=== PATIENT | female | born 1965 | race African-American/Black ===

== ENCOUNTER 2020-09-28 14:39 | Outpatient (REF) | payer MEDICARE, MEDICAID, SELFPAY ==
[2020-09-28 16:34] LABS: MANUAL DIFF FLAG NO
[2020-09-28 16:37] LABS: Basophils Percent Auto 0.5 % (0-2); Eosinophils Absolute Auto 0.2 X10*3/uL (0.0-0.4); Eosinophils Percent Auto 2.3 % (0-4); Hematocrit 39.9 % (37-47); Hemoglobin 12.5 g/dl (12.0-16.0); Imm Gran Abs Auto 0.02 X10*3/uL (0.00-0.03); Imm Gran Pct Auto 0.3 % (0.0-0.4); Lymphocytes Absolute Auto 2.7 X10*3/uL (1.2-4.9); Lymphocytes Percent Auto 34.2 % (20-40); Mean Corpuscular HGB Conc 31.3 g/dl (31.0-35.0); Mean Corpuscular Hemoglobin 26.9 pg (27.0-33.0); Mean Corpuscular Volume 85.8 fL (80-98); Monocytes Absolute Auto 0.9 X10*3/uL (0.1-1.2); Monocytes Percent Auto 10.8 % (2-11); Neutrophils Absolute Auto 4.1 X10*3/uL (2.0-8.3); Neutrophils Percent Auto 51.9 % (45-73); Platelet Count 479 X10*3/uL (160-400); Red Blood Count 4.65 X10*6/uL (4.20-5.50); Red Cell Distribution Width 14.6 % (11.0-16.0); White Blood Count 7.9 X10*3/uL (4.8-10.8)
[2020-09-28 16:56] LABS: Anion Gap 13 (12-20); Blood Urea Nitrogen 22 mg/dL (9-16); Carbon Dioxide 28 mmol/L (22-29); Chloride 103 mmol/L (96-108); Cholesterol 191 mg/dL; Estimated Glomerular Filt Rate > 60; Glucose Fasting 93 mg/dL (60-99); HDL Cholesterol 44 mg/dL; LDL Cholesterol Calculated 92 mg/dl; Potassium 4.9 mmol/l (3.3-5.1); Sodium 139 mmol/L (135-145); Triglycerides 275 mg/dL
[2020-09-28 17:05] LABS: Creatinine Urine 163.79 mg/dL; Microalbum/Creatinine Ratio Ur 8.5 ug/mg cr
[2020-09-28 17:16] LABS: TSH reflex Free T4 2.39 mIU/mL (0.32-4.0)
[2020-09-29 08:14] LABS: SARS COV2 IgG Negative (Negative)
[2020-09-29 09:27] LABS: Estimated Average Glucose 131 mg/dL; Hemoglobin A1c % 6.2 %
== END 2020-09-28 14:40 | disposition home or self-care (01) ==
LOC: HO.HMGCLDS 14:39
PROVIDERS: PCP Internal Medicine; Visit Provider Internal Medicine
DX: Z20.828 Contact with and (suspected) exposure to other viral communicable diseases (principal); E66.9 Obesity, unspecified; E13.9 Other specified diabetes mellitus without complications; E03.8 Other specified hypothyroidism; Z72.0 Tobacco use; I10 Essential (primary) hypertension
CPT/HCPCS: 36415; 80048; 80061; 82043; 83036; 84443; 85025; 86769

== ENCOUNTER 2021-01-27 14:25 | Outpatient (REF) | payer MEDICARE, MEDICAID, SELFPAY ==
--- NOTE | ~2021-01-27 | MM_ITS ---
EXAMINATION: MM SCREENING DIGITAL BREAST TOMOSYNTHESIS, BILATERAL CLINICAL INFORMATION: Screening. Asymptomatic. The lifetime risk of breast cancer based on the Tyrer-Cuzick Model is 11%. COMPARISON: Mammography: 09/29/2019, 09/27/2018, 09/26/2017 TECHNIQUE: Digital breast tomosynthesis is performed in both the craniocaudal and mediolateral oblique views along with computer-aided detection (CAD). Synthesized 2D images are generated from the tomosynthesis. FINDINGS: There are scattered areas of fibroglandular density (ACR BI-RADS breast composition Category b). Parenchymal pattern is similar to prior studies. There is a fine fibronodular pattern without interval dominant mass or developing density or architectural abnormality. Biopsy clip marker again noted left breast lower inner quadrant. The axilla and skin contours are unremarkable. There are no abnormal calcifications. No significant changes. MM/MM tomosynthesis screening BI IMPRESSION: No mammographic evidence of malignancy. ASSESSMENT: BI-RADS 2: Benign RECOMMENDATION: Routine annual mammography screening. This patient's information was entered into a reminder system with a target due date for their next mammogram.
== END 2021-01-27 14:26 | disposition home or self-care (01) ==
LOC: HO.MAMMO 14:25
PROVIDERS: PCP Internal Medicine; Visit Provider Internal Medicine
DX: Z12.31 Encounter for screening mammogram for malignant neoplasm of breast (principal)
CPT/HCPCS: 77063; 77067

== ENCOUNTER 2021-02-08 13:21 | Outpatient (REF) | payer MEDICARE, MEDICAID, SELFPAY ==
[2021-02-10 16:42] LABS: HPV mRNA E6/E7 rflx Not Detected (Not Detected)
== END 2021-02-08 13:22 | disposition home or self-care (01) ==
LOC: HO.LAB 13:21
PROVIDERS: PCP Internal Medicine; Visit Provider Obstetrics & Gynecology
DX: Z01.419 Encounter for gynecological examination (general) (routine) without abnormal findings (principal); Z11.51 Encounter for screening for human papillomavirus (HPV)
CPT/HCPCS: 87624; 88142

== ENCOUNTER 2021-04-20 14:12 | Outpatient (REF) | payer MEDICARE, MEDICAID, SELFPAY ==
[2021-04-20 16:35] LABS: Estimated Average Glucose 126 mg/dL
[2021-04-20 16:53] LABS: Alanine Aminotransferase 20 U/L (0-31); Albumin Level 4.5 g/dL (3.5-5.0); Alkaline Phosphatase 56 U/L (39-117); Anion Gap 16 (12-20); Aspartate Amino Transferase 20 U/L (5-31); Bilirubin Total 0.4 mg/dL (0.0-1.0); Blood Urea Nitrogen 23 mg/dL (9-16); Calcium 10.1 mg/dL (8.4-10.2); Carbon Dioxide 23 mmol/L (22-29); Chloride 106 mmol/L (96-108); Estimated Glomerular Filt Rate 47; Glucose Random 115 mg/dL (60-115); Potassium 4.7 mmol/L (3.3-5.1); Sodium 140 mmol/L (135-145); Total Protein 7.6 g/dL (6.5-8.0)
[2021-04-20 17:00] LABS: Creatinine Urine 162.85 mg/dL; Microalbum/Creatinine Ratio Ur 6.7 ug/mg cr
[2021-04-20 17:15] LABS: TSH reflex Free T4 1.97 uIU/mL (0.32-4.0)
== END 2021-04-20 14:13 | disposition home or self-care (01) ==
LOC: HO.HMGCLDS 14:12
PROVIDERS: PCP Internal Medicine; Visit Provider Internal Medicine
DX: Z00.01 Encounter for general adult medical examination with abnormal findings (principal); E03.8 Other specified hypothyroidism; E13.9 Other specified diabetes mellitus without complications; E66.9 Obesity, unspecified; I10 Essential (primary) hypertension
CPT/HCPCS: 36415; 80053; 82043; 83036; 84443

== ENCOUNTER 2021-08-23 12:18 | Outpatient (REF) | payer MEDICARE, MEDICAID, SELFPAY ==
[2021-08-23 14:11] LABS: MANUAL DIFF FLAG NO
[2021-08-23 14:20] LABS: Basophils Percent Auto 0.5 % (0-2); Eosinophils Absolute Auto 0.2 X10*3/uL (0.0-0.4); Eosinophils Percent Auto 2.4 % (0-4); Hematocrit 37.5 % (37.0-47.0); Hemoglobin 12.3 g/dl (12.0-16.0); Imm Gran Abs Auto 0.03 X10*3/uL (0.00-0.03); Imm Gran Pct Auto 0.4 % (0.0-0.4); Lymphocytes Absolute Auto 2.3 X10*3/uL (1.2-4.9); Lymphocytes Percent Auto 27.4 % (20-40); Mean Corpuscular HGB Conc 32.8 g/dl (31.0-35.0); Mean Corpuscular Hemoglobin 27.8 pg (27.0-33.0); Mean Corpuscular Volume 84.7 fL (80.0-98.0); Mean Platelet Volume 8.9 fL (9.4-12.3); Monocytes Absolute Auto 0.9 X10*3/uL (0.1-1.2); Monocytes Percent Auto 11.1 % (2-11); Neutrophils Absolute Auto 4.9 x10*3/uL (2.0-8.3); Neutrophils Percent Auto 58.2 % (45-73); Platelet Count 501 X10*3/uL (160-400); Red Blood Count 4.43 X10*6/uL (4.20-5.50); Red Cell Distribution Width 14.3 % (11.0-16.0); White Blood Count 8.5 X10*3/uL (4.8-10.8)
[2021-08-23 14:36] LABS: Estimated Average Glucose 128 mg/dL; Hemoglobin A1C 133.8206 umol/L; Hemoglobin A1c % 6.1 %
[2021-08-23 14:40] LABS: Alanine Aminotransferase 19 U/L (0-31); Albumin Level 4.4 g/dL (3.5-5.0); Alkaline Phosphatase 55 U/L (39-117); Anion Gap 13 (12-20); Aspartate Amino Transferase 17 U/L (5-31); Bilirubin Total 0.2 mg/dL (0.0-1.0); Blood Urea Nitrogen 26 mg/dL (9-16); Calcium 9.5 mg/dL (8.4-10.2); Carbon Dioxide 25 mmol/L (22-29); Chloride 100 mmol/L (96-108); Estimated Glomerular Filt Rate 57; Glucose Random 101 mg/dL (60-115); Potassium 4.3 mmol/L (3.3-5.1); Sodium 134 mmol/L (135-145); Total Protein 7.3 g/dL (6.5-8.0)
[2021-08-23 15:05] LABS: TSH reflex Free T4 3.59 uIU/mL (0.32-4.0)
[2021-08-25 02:02] LABS: LDL Cholesterol Direct 132 mg/dL (<100)
[2021-08-27 14:51] LABS: Vitamin D 25-OH, D2 <4 ng/mL; Vitamin D 25-OH, D3 37 ng/mL; Vitamin D 25-OH, Total 37 ng/mL (30-100)
== END 2021-08-23 12:19 | disposition home or self-care (01) ==
LOC: HO.HMGCLDS 12:18
PROVIDERS: PCP Internal Medicine; Visit Provider Internal Medicine
DX: E13.9 Other specified diabetes mellitus without complications (principal); E03.8 Other specified hypothyroidism; I10 Essential (primary) hypertension; F33.9 Major depressive disorder, recurrent, unspecified; F41.1 Generalized anxiety disorder; G47.33 Obstructive sleep apnea (adult) (pediatric); Z99.89 Dependence on other enabling machines and devices; E55.9 Vitamin D deficiency, unspecified
CPT/HCPCS: 36415; 80053; 82306; 83036; 83721; 84443; 85025

== ENCOUNTER → 2022-07-18 07:57 | Outpatient (BNVA) | payer MEDICARE, MEDICAID, SELFPAY | PROVIDERS: PCP Internal Medicine; Visit Provider Nurse Practitioner Family | DX: G47.33 Obstructive sleep apnea (adult) (pediatric) (principal); R40.0 Somnolence; I10 Essential (primary) hypertension; E66.01 Morbid (severe) obesity due to excess calories; Z68.37 Body mass index [BMI] 37.0-37.9, adult; Z99.89 Dependence on other enabling machines and devices | CPT/HCPCS: 99202 ==

== ENCOUNTER → 2022-08-08 13:53 | Outpatient (BNVA) | payer MEDICARE, MEDICAID, SELFPAY | PROVIDERS: PCP Internal Medicine; Visit Provider Physician Assistant Surgical | DX: Z11.0 Encounter for screening for intestinal infectious diseases (principal); E66.9 Obesity, unspecified; Z68.37 Body mass index [BMI] 37.0-37.9, adult | CPT/HCPCS: 99211; 99212 ==

== ENCOUNTER 2022-08-08 16:22 | Outpatient (REF) | payer MEDICARE, MEDICAID, SELFPAY ==
[2022-08-10 13:28] LABS: H Pylori Breath Test Negative (Negative)
== END 2022-08-08 16:23 | disposition home or self-care (01) ==
LOC: HO.LNP 16:22
PROVIDERS: Visit Provider Physician Assistant Surgical
DX: E66.9 Obesity, unspecified (principal)
CPT/HCPCS: 83013

== ENCOUNTER 2022-08-10 11:07 | Outpatient (REF) | payer MEDICARE, MEDICAID, SELFPAY ==
--- NOTE | ~2022-08-10 | XR_ITS ---
EXAMINATION: XR CHEST CLINICAL INFORMATION: Obesity. COMPARISON: 03/31/2019 TECHNIQUE: 2 views of the chest were obtained. FINDINGS: The lungs are well expanded. No focal consolidation. No pleural effusion. Cardiac silhouette is unchanged. XR/XR chest 2V IMPRESSION: No acute abnormality.
[2022-08-10 13:50] LABS: MANUAL DIFF FLAG NO
[2022-08-10 14:04] LABS: Basophils Percent Auto 0.5 % (0-2); Eosinophils Absolute Auto 0.1 X10*3/uL (0.0-0.4); Eosinophils Percent Auto 2.2 % (0-4); Hematocrit 40.3 % (37.0-47.0); Hemoglobin 13.3 g/dl (12.0-16.0); Imm Gran Abs Auto 0.01 X10*3/uL (0.00-0.03); Imm Gran Pct Auto 0.2 % (0.0-0.4); Lymphocytes Percent Auto 32.3 % (20-40); Mean Corpuscular Hemoglobin 27.9 pg (27.0-33.0); Mean Corpuscular Volume 84.7 fL (80.0-98.0); Mean Platelet Volume 9.1 fL (9.4-12.3); Monocytes Absolute Auto 0.6 X10*3/uL (0.1-1.2); Monocytes Percent Auto 9.9 % (2-11); Neutrophils Absolute Auto 3.4 x10*3/uL (2.0-8.3); Neutrophils Percent Auto 54.9 % (45-73); Platelet Count 438 X10*3/uL (160-400); Red Blood Count 4.76 X10*6/uL (4.20-5.50); Red Cell Distribution Width 14.4 % (11.0-16.0); White Blood Count 6.3 X10*3/uL (4.8-10.8)
[2022-08-10 14:10] LABS: Estimated Average Glucose 140 mg/dL; Hemoglobin A1c % 6.5 %
[2022-08-10 14:29] LABS: Alanine Aminotransferase 33 U/L (0-31); Albumin Level 4.6 g/dL (3.5-5.0); Alkaline Phosphatase 60 U/L (39-117); Anion Gap 20 (12-20); Aspartate Amino Transferase 29 U/L (5-31); Bilirubin Total 0.3 mg/dL (0.0-1.0); Blood Urea Nitrogen 21 mg/dL (9-16); Calcium 9.6 mg/dL (8.4-10.2); Carbon Dioxide 20 mmol/L (22-29); Chloride 102 mmol/L (96-108); Cholesterol 226 mg/dL; Estimated Glomerular Filt Rate 48; Glucose Fasting 164 mg/dL (60-99); HDL Cholesterol 43 mg/dL; Iron 73 mcg/dL (30-160); LDL Cholesterol Calculated 113 mg/dl; Percent Iron Saturation 17 % (15-50); Potassium 4.2 mmol/L (3.3-5.1); Sodium 138 mmol/L (135-145); Total Iron Binding Capacity 438 mcg/dL (228-428); Total Protein 7.8 g/dL (6.5-8.0); Triglycerides 350 mg/dL; Unsaturated Iron Binding 365 ug/dL
[2022-08-10 14:31] LABS: Cholesterol 226 mg/dL; HDL Cholesterol 42 mg/dL; LDL Cholesterol Calculated 115 mg/dl; Triglycerides 346 mg/dL
[2022-08-10 14:37] LABS: TSH reflex Free T4 3.51 uIU/mL (0.32-4.0)
[2022-08-10 14:39] LABS: Ferritin 138 ng/mL (10-250); TSH reflex Free T4 3.58 uIU/mL (0.32-4.0); Vitamin D 25-OH Total 40.4 ng/mL (>30)
[2022-08-10 14:45] LABS: Microalbum/Creatinine Ratio Ur 35.5 ug/mg cr
[2022-08-10 15:05] LABS: Folate > 20.0 ng/mL (> or = 4.0); Vitamin B12 363 pg/mL (200-900)
[2022-08-10 15:11] LABS: Insulin 77 uU/mL (2-29)
[2022-08-11 12:55] LABS: Calcium (PTHI) 9.6 mg/dL (8.6-10.4); PTHI 34 pg/mL (16-77)
[2022-08-15 16:43] LABS: Zinc 80 mcg/dL (60-130)
[2022-08-16 11:32] LABS: Vitamin A 85 mcg/dL (38-98)
[2022-08-16 15:51] LABS: Vitamin B1 15 nmol/L (8-30)
== END 2022-08-10 11:08 | disposition home or self-care (01) ==
LOC: HO.HMGCLDS 11:07
PROVIDERS: Absent Provider Physician Assistant Surgical; PCP Internal Medicine; Visit Provider Internal Medicine
DX: E03.8 Other specified hypothyroidism (principal); E13.9 Other specified diabetes mellitus without complications; F33.9 Major depressive disorder, recurrent, unspecified; F41.1 Generalized anxiety disorder; I10 Essential (primary) hypertension; J98.8 Other specified respiratory disorders; E66.9 Obesity, unspecified
CPT/HCPCS: 36415; 71046; 80053; 80061; 82043; 82306; 82607; 82728; 82746; 83036; 83525; 83540; 83970; 84425; 84443; 84590; 84630; 85025; 86140

== ENCOUNTER → 2022-08-15 14:39 | Outpatient (REF) | payer MEDICARE, MEDICAID, SELFPAY ==
--- NOTE | 2022-08-15 14:45 | ECG_ITS ---
Test Reason : E66.9 Blood Pressure : / mmHG Vent. Rate : 088 BPM Atrial Rate : 088 BPM P-R Int : 146 ms QRS Dur : 092 ms QT Int : 380 ms P-R-T Axes : 067 066 052 degrees QTc Int : 459 ms Normal sinus rhythm Normal ECG No previous ECGs available Referred By: Charanjit Hayes Electronically Signed By:MIGUEL FLOWERS MD
== END ==
LOC: HO.CARD 14:39
PROVIDERS: PCP Internal Medicine; Visit Provider Physician Assistant Surgical
DX: E66.9 Obesity, unspecified (principal)
CPT/HCPCS: 93005

== ENCOUNTER → 2022-08-24 15:50 | Outpatient (BNVA) | payer MEDICARE, MEDICAID, SELFPAY | PROVIDERS: PCP Internal Medicine; Referring Provider Physician Assistant Surgical; Visit Provider Dietitian, Registered | DX: E66.9 Obesity, unspecified (principal) | CPT/HCPCS: 97802 ==

== ENCOUNTER → 2022-08-29 14:02 | Outpatient (BNVA) | payer MEDICARE, MEDICAID, SELFPAY | PROVIDERS: PCP Internal Medicine; Visit Provider Physician Assistant Surgical | DX: E66.9 Obesity, unspecified (principal); Z68.36 Body mass index [BMI] 36.0-36.9, adult | CPT/HCPCS: 99212 ==

== ENCOUNTER → 2022-09-06 13:00 | Outpatient (BNVA) | payer OTHER, MEDICARE, MEDICAID, SELFPAY | PROVIDERS: PCP Internal Medicine; Referring Provider Physician Assistant Surgical; Visit Provider Counselor Mental Health | DX: F33.0 Major depressive disorder, recurrent, mild (principal); E66.01 Morbid (severe) obesity due to excess calories; Z68.35 Body mass index [BMI] 35.0-35.9, adult | CPT/HCPCS: 90791 ==

== ENCOUNTER 2022-09-20 08:07 | Outpatient (REF) | payer MEDICARE, MEDICAID, SELFPAY ==
--- NOTE | ~2022-09-20 | US_ITS ---
EXAMINATION: US COMPLETE ABDOMEN WITH LIVER ELASTOGRAPHY CLINICAL INFORMATION: Obesity. COMPARISON: None. TECHNIQUE: Real-time imaging of the abdominal viscera. Noninvasive ultrasound liver fibrosis assessment is performed using Randee ElastPQ point quantification shear wave elastography (2D-SWE) with a C5-2 MHz transducer. Multiple elastography samples are obtained. FINDINGS: PANCREAS: Normal. The visualized pancreatic head and body are normal in appearance. The remainder of the pancreas is obscured from visualization by the overlying bowel gas. ABDOMINAL AORTA: The proximal and middle aortic segments are normal in caliber. The distal segment is not seen. INFERIOR VENA CAVA: Visualized portions are normal. LIVER: The liver demonstrates normal size, contour and increased echogenicity. No focal lesion or intrahepatic biliary duct dilatation. The right lobe measures 16.0 cm in length. The left lobe measures 14.3 cm in length. Portal flow is hepatopedal. Shear wave liver elastography median stiffness is 1.17 m/s (reference: normal median stiffness is 1.3 m/s or less). IQR/median stiffness to assess sampling precision is 0.08 (reference: good quality data set is IQR/median stiffness of 0.15 or less). GALLBLADDER: The gallbladder is physiologically distended without evidence of stones, sludge, wall thickening or pericholecystic fluid. There are numerous non-mobile echogenic lesions along the inner gallbladder wall suggestive of polyps. COMMON BILE DUCT: Normal in caliber measuring 0.25 cm in diameter. RIGHT KIDNEY: Normal. No hydronephrosis. No renal calculi or focal parenchymal lesions. The kidney measures 12.2 cm in maximum dimension. LEFT KIDNEY: Normal. No hydronephrosis. No renal calculi or focal parenchymal lesions. The kidney measures 12.0 cm in maximum dimension. SPLEEN: Normal. The spleen measures 10.0 cm in maximum dimension. FREE FLUID: None. US/US abdomen comp w elastography IMPRESSION: 1. Numerous gallbladder polyps but no echogenic stones. 2. Mild hepatic steatosis without focal lesion. 3. Liver elastography: Median liver stiffness measures 1.17 m/s suggestive of high probability normal study. REFERENCE: Society of Radiologists in Ultrasound Liver Stiffness Thresholds (2020): LIVER STIFFNESS THRESHOLDS: *Liver Stiffness equal or less than 1.3 m/s: High probability of being normal. *Liver Stiffness less than 1.7 m/s: In the absence of other known clinical signs, rules out compensated advanced chronic liver disease. *Liver Stiffness 1.7-2.1 m/s: Suggestive of compensated advanced chronic liver disease but need further test for confirmation. *Liver Stiffness over 2.1 m/s: Rules in compensated advanced chronic liver disease. *Liver Stiffness over 2.4 m/s: Suggestive of clinically significant portal hypertension. QUALITY OF DATA SET: *IQR/Median value equal or less than 0.15 implies a quality data set. *IQR/Median value over 0.15 implies a poor quality data set. SIGNIFICANT CHANGE FROM PRIOR EXAM: Significant change if liver stiffness measurement is 10% or greater from prior exam. OTHER CONSIDERATIONS: The stage of liver fibrosis may be overestimated in the setting of acute hepatitis, liver inflammation, elevated liver function tests, hepatic vascular congestion, obstructive cholestasis, non-fasting state, and infiltrative diseases such as amyloidosis and lymphoma. In some patients with NAFLD, the liver stiffness thresholds for compensated advanced chronic liver disease may be lower. In causes other than viral hepatitis and NAFLD, liver stiffness thresholds are not well established.
--- NOTE | ~2022-09-20 | FL_ITS ---
EXAMINATION: XR FLUOROSCOPY UPPER GI WITH AIR CLINICAL INFORMATION: Obesity. COMPARISON: None. TECHNIQUE: Routine upper GI air-contrast study was performed in upright and lying positions. FINDINGS: Following oral administration of thick barium and effervescent granules, there is normal propagation of bolus from the oral cavity through the pharynx and esophagus and into the stomach without any evidence of obstruction, narrowing or stricture. Again visualized is mild indentation of posterior left upper sidewall from aberrant right subclavian artery. On placing patient supine and prone lying, the course, caliber and peristalsis of stomach, duodenal bulb and the CBD are normal. No gastroesophageal reflux or hiatal hernia seen. The mucosal pattern of the stomach and duodenum is normal. FLUOROSCOPY TIME: 1.8 minutes. DOSE AREA PRODUCT: 140.718 uGy-m2 (microgray-meter squared). FL/FL upper GI w air IMPRESSION: Unremarkable upper GI examination. Again noted is indentation of upper left and posterior esophageal wall likely from an aberrant right subclavian artery. Similar findings were seen on the previous UGI exam 05/07/2019.
== END 2022-09-20 08:08 | disposition home or self-care (01) ==
LOC: HO.US 08:07
PROVIDERS: Visit Provider Physician Assistant Surgical
DX: E66.9 Obesity, unspecified (principal)
CPT/HCPCS: 74246; 76705; 76981; Q3014

== ENCOUNTER → 2022-10-03 14:04 | Outpatient (BNVA) | payer OTHER, MEDICARE, MEDICAID, SELFPAY | PROVIDERS: Visit Provider Nurse Practitioner Family | DX: G47.33 Obstructive sleep apnea (adult) (pediatric) (principal) ==

== ENCOUNTER → 2022-10-19 13:56 | Outpatient (BNVA) | payer MEDICARE, MEDICAID, SELFPAY | PROVIDERS: Visit Provider Advanced Practice Midwife | DX: Z13.89 Encounter for screening for other disorder (principal) ==

== ENCOUNTER 2022-11-01 15:26 | Outpatient (REF) | payer MEDICARE, MEDICAID, SELFPAY ==
--- NOTE | ~2022-11-01 | MM_ITS ---
EXAMINATION: MM SCREENING DIGITAL BREAST TOMOSYNTHESIS, BILATERAL CLINICAL INFORMATION: Screening. Asymptomatic. The lifetime risk of breast cancer based on the Tyrer-Cuzick Model is 11.0%. COMPARISON: Mammography: 01/27/2021 and studies dating back to 12/19/2011 TECHNIQUE: Digital breast tomosynthesis is performed in both the craniocaudal and mediolateral oblique views along with computer-aided detection (CAD). Synthesized 2D images are generated from the tomosynthesis. FINDINGS: The breasts are heterogeneously dense, which may obscure small masses (ACR BI-RADS breast composition Category c). There is waxing and waning of circumscribed densities bilaterally consistent with cysts. No suspicious spiculated mass or region of architectural distortion is identified. No suspicious grouping of microcalcifications seen. MM/MM tomosynthesis screening BI IMPRESSION: No significant changes from prior exam. ASSESSMENT: BI-RADS 2: Benign RECOMMENDATION: Routine annual mammography screening. This patient's information was entered into a reminder system with a target due date for their next mammogram.
== END 2022-11-01 15:27 | disposition home or self-care (01) ==
LOC: HO.MAMMO 15:26
PROVIDERS: Visit Provider Internal Medicine
DX: Z12.31 Encounter for screening mammogram for malignant neoplasm of breast (principal)
CPT/HCPCS: 77063; 77067

== ENCOUNTER 2023-03-02 11:28 | Outpatient (REF) | payer MEDICARE, MEDICAID, SELFPAY ==
[2023-03-02 13:57] LABS: MANUAL DIFF FLAG NO
[2023-03-02 14:03] LABS: Basophils Percent Auto 0.6 % (0-2); Eosinophils Absolute Auto 0.1 X10*3/uL (0.0-0.4); Eosinophils Percent Auto 1.9 % (0-4); Hematocrit 37.6 % (37.0-47.0); Hemoglobin 12.3 g/dl (12.0-16.0); Imm Gran Abs Auto 0.01 X10*3/uL (0.00-0.03); Imm Gran Pct Auto 0.1 % (0.0-0.4); Lymphocytes Absolute Auto 2.1 X10*3/uL (1.2-4.9); Lymphocytes Percent Auto 30.9 % (20-40); Mean Corpuscular HGB Conc 32.7 g/dl (31.0-35.0); Mean Corpuscular Hemoglobin 27.6 pg (27.0-33.0); Mean Corpuscular Volume 84.5 fL (80.0-98.0); Mean Platelet Volume 9.2 fL (9.4-12.3); Monocytes Absolute Auto 0.6 X10*3/uL (0.1-1.2); Monocytes Percent Auto 8.8 % (2-11); Neutrophils Absolute Auto 3.9 x10*3/uL (2.0-8.3); Neutrophils Percent Auto 57.7 % (45-73); Platelet Count 458 X10*3/uL (160-400); Red Blood Count 4.45 X10*6/uL (4.20-5.50); Red Cell Distribution Width 14.6 % (11.0-16.0); White Blood Count 6.7 X10*3/uL (4.8-10.8)
[2023-03-02 14:13] LABS: Estimated Average Glucose 128 mg/dL; Hemoglobin A1c % 6.1 %
[2023-03-02 14:29] LABS: Alanine Aminotransferase 22 U/L (0-31); Albumin Level 4.3 g/dL (3.5-5.0); Alkaline Phosphatase 50 U/L (39-117); Anion Gap 14 (12-20); Aspartate Amino Transferase 20 U/L (5-31); Bilirubin Total 0.4 mg/dL (0.0-1.0); Blood Urea Nitrogen 19 mg/dL (9-16); Calcium 9.7 mg/dL (8.4-10.2); Carbon Dioxide 25 mmol/L (22-29); Chloride 103 mmol/L (96-108); Cholesterol 221 mg/dL; Estimated Glomerular Filt Rate 54; Glucose Fasting 125 mg/dL (60-99); Glucose Random 125 mg/dL (60-115); HDL Cholesterol 45 mg/dL; LDL Cholesterol Calculated 113 mg/dl; Potassium 4.6 mmol/L (3.3-5.1); Sodium 137 mmol/L (135-145); Total Protein 7.1 g/dL (6.5-8.0); Triglycerides 315 mg/dL
[2023-03-02 14:42] LABS: TSH reflex Free T4 3.55 uIU/mL (0.32-4.0)
[2023-03-03 22:03] LABS: LDL Cholesterol Direct 140 mg/dL (<100)
== END 2023-03-02 11:29 | disposition home or self-care (01) ==
LOC: HO.HMGCLDS 11:28
PROVIDERS: PCP Internal Medicine; Visit Provider Internal Medicine
DX: E03.8 Other specified hypothyroidism (principal); E13.9 Other specified diabetes mellitus without complications; E66.9 Obesity, unspecified; F33.9 Major depressive disorder, recurrent, unspecified; F41.1 Generalized anxiety disorder; I10 Essential (primary) hypertension; G47.33 Obstructive sleep apnea (adult) (pediatric); Z99.89 Dependence on other enabling machines and devices
CPT/HCPCS: 36415; 80053; 80061; 83036; 83721; 84443; 85025

== ENCOUNTER 2023-06-06 12:58 | Outpatient (AMB) | payer MEDICARE, MEDICAID, SELFPAY ==
--- NOTE | 2023-06-06 13:02 | A.OFFPC_ITS ---
Vital Signs 06/06/23 13:07 Height 5 ft 5 in Weight 227 lb BMI 37.8 BP 112/66 Blood Pressure Location Rt brachial Position Sitting Pulse 99 Pulse Source Pulse Oximeter Pulse Oximetry (%) 95 Oxygen Delivery Method Room Air Intake Visit Reasons: 3m follow up Intake Note: Pt is here today for 3 months follow up visit. Allergies amlodipine Allergy (Unknown, Verified 06/06/23 13:08) unknown contact metal agent Allergy (Unknown, Verified 06/06/23 13:08) Skin breakout lisinopril [LISINOPRIL] Allergy (Unknown, Verified 06/06/23 13:08) COUGH nickel [NICKEL] Allergy (Unknown, Verified 06/06/23 13:08) HIVES Medication List - Last Reconciled 06/06/23 by Tony Wilson MD bupropion HCl mg PO ezetimibe 10 mg PO DAILY 90 days fenofibrate 160 mg PO DAILY 90 days fluoxetine mg PO irbesartan-hydrochlorothiazide 300-12.5 mg 1 tab PO DAILY 90 days levothyroxine 75 mcg PO DAILY 90 days metformin 500 mg PO ONCE 90 days Tobacco use date assessed: 06/06/23 Dental Screening Dental Screen Date: 06/06/23 Did you have a dental visit in the last 12 months?: Yes Did you have a dental problem in the last 6 months where you did not have access to dental care?: No Was dental information given to patient?: Patient has dentist HPI 3m follow up HPI Details 57-year-old female came in today for her regular follow-up appointment Last set of lab was in February of this year reviewed again Patient is diabetic currently she is taking metformin 500 mg, hemoglobin A1c is stable it was 6.1% in February Hypothyroidism: Continue levothyroxine 75 mcg , TSH within normal limit Hypertension: Blood pressure is stable patient is on irbesartan hydrochlorothiazide 300-12.5 mg, tolerating medication. Lipid disorder: Continue fenofirate 160 mg Depression: Patient is is stable currently she is on Wellbutrin and fluoxetine BMI is elevated : patient is having difficulty losing weight. 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 Son No problems noted. Brother Colon cancer Other Adopted Social History Housing: House Alcohol intake: never Patient Tobacco Use Status: Former Tobacco user Quit Date: 2019 Tobacco use type: Cigarette Years Smoked: since age 11 e-Cigarette/Vaping Use: Never Used service: No Current occupational status: employed and disabled Cognitive needs: No Hearing needs: No Vision needs: Yes Female Reproductive History Menstrual Age of Menarche: 11 Questionnaire Thrive Questionnaire Date Thrive assessed: 06/30/22 [place]-7 AMB Questionnaire [place]-7 Date [place] - 7 assessed: 06/30/22 Source: Developed by Drs. Ezra Valdez, Miley Kulkarni, Jovanny Lainez and colleagues, with an educational keny from [facility]. Review of Systems Const Denies chills and Denies fever(s) ENT Denies epistaxis and Denies nasal discharge Card Denies chest pain Resp Denies chest congestion, Denies cough and Denies hemoptysis GI Denies diarrhea and Denies nausea Skin/Breast Denies rash Neuro Reports no additional complaints Psych Reports no additional complaints Endo Reports no additional complaints Physical exam (Primary Care) Vital Signs: Last Vital Signs Pulse 99 06/06/23 13:07 BP 112/66 06/06/23 13:07 Pulse Ox 95 06/06/23 13:07 Oxygen Delivery Method Room Air 06/06/23 13:07 BMI result Body Mass Index 37.8 Tobacco/Smoking Status: Tobacco use Status Tobacco use date assessed 11/01/22 06/06/23 13:03 Patient Tobacco Use Status Former Tobacco user 06/06/23 13:03 Tobacco use type Cigarette 06/06/23 13:03 e-Cigarette/Vaping Use Never Used 06/06/23 13:03 Thrive Assessment: Date of Thrive Assessment Date Thrive assessed 06/30/22 06/06/23 13:03 Const General: cooperative, comfortable and no acute distress Orientation/consciousness: patient oriented x3 HENMT Head: Yes normocephalic Eyes General: appearance normal, both eyes and all related structures Neck Neck: Yes supple Resp Effort & Inspection: normal respiratory effort, no cough and no stridor Cardio Rhythm: regular rhythm Heart sounds: S1 normal heart sound present and S2 normal heart sound present Skin General skin exam: turgor normal Neuro General: patient oriented x3, tone normal and moves all extremities Extrem Right lower extremity: no edema Left lower extremity: no edema Assessment and Plan Assessment & Plan (1) Hypertension, essential: Code(s): I10 - Essential (primary) hypertension (2) Other specified hypothyroidism: Code(s): E03.8 - Other specified hypothyroidism (3) Depression, major, recurrent: Code(s): F33.9 - Major depressive disorder, recurrent, unspecified Qualifiers: Active/Remission status: in partial remission Qualified Code(s): F33.41 - Major depressive disorder, recurrent, in partial remission (4) Anxiety, generalized: Code(s): F41.1 - Generalized anxiety disorder (5) Diabetes 1.5, managed as type 2: Code(s): E13.9 - Other specified diabetes mellitus without complications (6) Obstructive sleep apnea on CPAP: Code(s): G47.33 - Obstructive sleep apnea (adult) (pediatric); Z99.89 - Dependence on o ther enabling machines and devices (7) Obesity (BMI 30-39.9): Code(s): E66.9 - Obesity, unspecified Plan 57-year-old female came in today for her regular follow-up appointment Last set of lab was in February of this year reviewed again Patient is diabetic currently she is taking metformin 500 mg, hemoglobin A1c is stable it was 6.1% in February Hypothyroidism: Continue levothyroxine 75 mcg , TSH within normal limit Hypertension: Blood pressure is stable patient is on irbesartan hydrochlorothiazide 300-12.5 mg, tolerating medication. Lipid disorder: Continue fenofirate 160 mg Depression: Patient is is stable currently she is on Wellbutrin and fluoxetine BMI is elevated : patient is having difficulty losing weight. Sleep apnea: Patient has not had the sleep study yet she has appointment coming up next month Follow-up 3 months Orders: Orders Comprehensive [place]. Panel Fast Today E03.8 - Other specified hypothyroidism, E13.9 - Other specified diabetes mellitus without complications, E66.9 - Obesity, unspecified, F33.9 - Major depressive disorder, recurrent, unspecified, F41.1 - Generalized anxiety disorder, G47.33 - Obstructive sleep apnea (adult) (pediatric), I10 - Essential (primary) hypertension, Z99.89 - Dependence on other enabling machines and devices Hemoglobin A1c Today E03.8 - Other specified hypothyroidism, E13.9 - Other specified diabetes mellitus without complications, E66.9 - Obesity, unspecified, F33.9 - Major depressive disorder, recurrent, unspecified, F41.1 - Generalized anxiety disorder, G47.33 - Obstructive sleep apnea (adult) (pediatric), I10 - Essential (primary) hypertension, Z99.89 - Dependence on other enabling machines and devices Lipid Panel Today E03.8 - Other specified hypothyroidism, E13.9 - Other specified diabetes mellitus without complications, E66.9 - Obesity, unspecified, F33.9 - Major depressive disorder, recurrent, unspecified, F41.1 - Generalized anxiety disorder, G47.33 - Obstructive sleep apnea (adult) (pediatric), I10 - Essential (primary) hypertension, Z99.89 - Dependence on other enabling machines and devices TSH reflex Free T4 Today E03.8 - Other specified hypothyroidism, E13.9 - Other specified diabetes mellitus without complications, E66.9 - Obesity, unspecified, F33.9 - Major depressive disorder, recurrent, unspecified, F41.1 - Generalized anxiety disorder, G47.33 - Obstructive sleep apnea (adult) (pediatric), I10 - Essential (primary) hypertension, Z99.89 - Dependence on other enabling machines and devices Microalbumin, Random (w Creat) Today E03.8 - Other specified hypothyroidism, E13.9 - Other specified diabetes mellitus without complications, E66.9 - Obesity, unspecified, F33.9 - Major depressive disorder, recurrent, unspecified, F41.1 - Generalized anxiety disorder, G47.33 - Obstructive sleep apnea (adult) (pediatric), I10 - Essential (primary) hypertension, Z99.89 - Dependence on ot her enabling machines and devices Complete Blood Count Auto Diff Today E03.8 - Other specified hypothyroidism, E13.9 - Other specified diabetes mellitus without complications, E66.9 - Obesity, unspecified, F33.9 - Major depressive disorder, recurrent, unspecified, F41.1 - Generalized anxiety disorder, G47.33 - Obstructive sleep apnea (adult) (pediatric), I10 - Essential (primary) hypertension, Z99.89 - Dependence on other enabling machines and devices Coding Level of Care Code Est Pt Level 4 (02625) Diagnoses Hypertension, essential I10 Other specified hypothyroidism E03.8 Depression, major, recurrent F33.41 Active/Remission status: in partial remission Anxiety, generalized F41.1 Diabetes 1.5, managed as type 2 E13.9 Obstructive sleep apnea on CPAP G47.33; Z99.89 Obesity (BMI 30-39.9) E66.9
[2023-06-06 13:07] VITALS: BP 112/66; PULSE 99; O2SAT 95; BMI 37.8
== END 2023-06-06 14:11 | disposition home or self-care (01) ==
PROVIDERS: PCP Internal Medicine; Visit Provider Internal Medicine
DX: I10 Essential (primary) hypertension (principal); E03.8 Other specified hypothyroidism; F33.41 Major depressive disorder, recurrent, in partial remission; E13.9 Other specified diabetes mellitus without complications; F41.1 Generalized anxiety disorder; G47.33 Obstructive sleep apnea (adult) (pediatric); Z99.89 Dependence on other enabling machines and devices; E66.9 Obesity, unspecified
CPT/HCPCS: 99214

== ENCOUNTER 2023-06-26 14:02 | Outpatient (AMB) | payer MEDICARE, MEDICAID, SELFPAY ==
--- NOTE | 2023-06-26 14:05 | MHC.OFFVIS ---
Intake Vital Signs 06/26/23 14:07 Weight 231 lb Intake Visit Reasons: 2 mnts f/u for DYLAN - Confirmed Intake Note: Patient presents for 2 month follow up for DYLAN. patient states Somehow I've fallen through the cracks in our system, I've been bounce around and rescheduled twice., I don't know whats going on this is been going on for 6 months. Allergies amlodipine Allergy (Unknown, Verified 07/10/23 15:27) unknown contact metal agent Allergy (Unknown, Verified 07/10/23 15:27) Skin breakout lisinopril [LISINOPRIL] Allergy (Unknown, Verified 07/10/23 15:27) COUGH nickel [NICKEL] Allergy (Unknown, Verified 07/10/23 15:27) HIVES HPI HPI Comments History of Present Illness Details 57 y/o female patient presents for follow up of sleep study. The home sleep study result was significant for moderate degree of obstructive sleep apnea, the AHI 33/hr and mild degree of central sleep apnea YEE 7.3/hr with oxygen sarmad was 76%. Pt reports consistent symptoms, snoring, non refreshing sleep and daytime sleepiness. Pt states that she tries to practice good sleep hygiene, having routine sleep schedule and limit electronic use before bedtime. [facility] Medical History Obesity Obstructive sleep apnea on CPAP Diabetes 1.5, managed as type 2 Anxiety, generalized Depression, major, recurrent Other specified hypothyroidism Hypertension, essential Surgical History History of ear surgery History of colonoscopy Family History Son No problems noted. Son No problems noted. Brother Colon cancer Other Adopted Social History Housing: House Alcohol intake: never Patient Tobacco Use Status: Former Tobacco user Quit Date: 2019 Tobacco use type: Cigarette Years Smoked: since age 11 e-Cigarette/Vaping Use: Never Used service: No Current occupational status: employed and disabled Cognitive needs: No Hearing needs: No Vision needs: Yes Female Reproductive History Menstrual Age of Menarche: 11 Review of Systems Const All systems reviewed & are unremarkable except as noted in HPI and below ENT Reports Normal hearing present Neuro Reports Normal hearing present Physical Exam Const General: cooperative Nutritional Appearance: obese Orientation/consciousness: patient oriented x3 Limitations: no limitations Resp Effort & Inspection: normal respiratory effort and able to speak in complete sentences Neuro General: patient oriented x3, gait normal, moves all extremities and no focal motor deficits Cranial nerves: Yes Normal facial strength present, Yes Midline tongue present, Yes Symmetric palate elevation present, Yes Normal hearing present, Yes Ability to bilaterally rotate head present and Yes Ability to bilaterally elevate shoulders present Cognition (Neuro): normal cognition Gait exam (Neuro): Normal gait present Psych Appearance: grossly normal Mental Status: mental status grossly normal Speech and movement: Normal speech and movement present Attitude: cooperative Assessment & Plan Assessment & Plan (1) Daytime sleepiness: Code(s): R40.0 - Somnolence (2) Sleep apnea in adult: Comment: Moderate degree of obstructive sleep apnea and mild degree of central sleep apnea. Code(s): G47.30 - Sleep apnea, unspecified Plan Advised patient to start APAP [id number] to treat her sleep apnea. Stressed compliance, use CPAP nightly and more than 4 hrs. Wt reduction advised. Increase daily physical activity and continue to practice good sleep hygiene. Coding Level of Care Code Est Pt Level 3 (59394) Diagnoses Daytime sleepiness R40.0 Sleep apnea in adult G47.30
== END 2023-06-26 14:24 | disposition home or self-care (01) ==
LOC: HO.HSMC 14:02
PROVIDERS: PCP Internal Medicine; Visit Provider Nurse Practitioner Family
DX: R40.0 Somnolence (principal); G47.30 Sleep apnea, unspecified
CPT/HCPCS: 99213

== ENCOUNTER → 2023-06-26 14:02 | Outpatient (BNVA) | payer MEDICARE, MEDICAID, SELFPAY | PROVIDERS: PCP Internal Medicine; Visit Provider Nurse Practitioner Family | DX: G47.30 Sleep apnea, unspecified (principal); R40.0 Somnolence | CPT/HCPCS: 99212 ==

== ENCOUNTER 2023-07-05 11:27 | Outpatient (REF) | payer MEDICARE, MEDICAID, SELFPAY ==
[2023-07-05 13:11] LABS: MANUAL DIFF FLAG NO
[2023-07-05 13:32] LABS: Estimated Average Glucose 137 mg/dL; Hemoglobin A1c % 6.4 % (<6.0)
[2023-07-05 13:33] LABS: Cholesterol 217 mg/dL (<200); HDL Cholesterol 44 mg/dL (>40); LDL Cholesterol Calculated 94 mg/dL (<100); Triglycerides 397 mg/dL (<150)
[2023-07-05 13:35] LABS: Basophils Percent Auto 0.4 % (0-2); Eosinophils Absolute Auto 0.1 X10*3/uL (0.0-0.4); Eosinophils Percent Auto 1.9 % (0-4); Hematocrit 41.7 % (37.0-47.0); Hemoglobin 13.6 g/dl (12.0-16.0); Imm Gran Abs Auto 0.03 X10*3/uL (0.00-0.03); Imm Gran Pct Auto 0.4 % (0.0-0.4); Lymphocytes Absolute Auto 2.2 X10*3/uL (1.2-4.9); Lymphocytes Percent Auto 32.7 % (20-40); Mean Corpuscular HGB Conc 32.6 g/dl (31.0-35.0); Mean Corpuscular Hemoglobin 28.1 pg (27.0-33.0); Mean Corpuscular Volume 86.2 fL (80.0-98.0); Mean Platelet Volume 9.2 fL (9.4-12.3); Monocytes Absolute Auto 0.6 X10*3/uL (0.1-1.2); Monocytes Percent Auto 9.1 % (2-11); Neutrophils Absolute Auto 3.8 x10*3/uL (2.0-8.3); Neutrophils Percent Auto 55.5 % (45-73); Platelet Count 474 X10*3/uL (160-400); Red Blood Count 4.84 X10*6/uL (4.20-5.50); Red Cell Distribution Width 14.3 % (11.0-16.0); White Blood Count 6.9 X10*3/uL (4.8-10.8)
[2023-07-05 13:53] LABS: TSH reflex Free T4 4.19 uIU/mL (0.32-4.0)
[2023-07-05 14:05] LABS: Microalbum/Creatinine Ratio Ur 45.4 ug/mg cr (<30)
== END 2023-07-05 11:28 | disposition home or self-care (01) ==
LOC: HO.HMGCLDS 11:27
PROVIDERS: PCP Internal Medicine; Visit Provider Internal Medicine
DX: J98.8 Other specified respiratory disorders (principal); E13.9 Other specified diabetes mellitus without complications; F41.1 Generalized anxiety disorder; E03.8 Other specified hypothyroidism; F33.9 Major depressive disorder, recurrent, unspecified; I10 Essential (primary) hypertension; G47.33 Obstructive sleep apnea (adult) (pediatric); E66.9 Obesity, unspecified; Z99.89 Dependence on other enabling machines and devices
CPT/HCPCS: 36415; 80061; 82043; 82570; 83036; 84439; 84443; 85025

== ENCOUNTER 2023-07-10 15:23 | Outpatient (AMB) | payer MEDICARE, MEDICAID, SELFPAY ==
[2023-07-10 15:27] VITALS: BP 142/78; PULSE 106; O2SAT 97; BMI 38.0
--- NOTE | 2023-07-10 15:27 | MHC.PC.OV ---
Vital Signs 07/10/23 15:27 Height 5 ft 5 in Weight 228 lb 6 oz BMI 38.0 BP 142/78 H Blood Pressure Location Rt brachial Position Sitting Pulse 106 H Pulse Source Pulse Oximeter Pulse Oximetry (%) 97 Oxygen Delivery Method Room Air Intake Visit Reasons: Annual PE Allergies amlodipine Allergy (Unknown, Verified 07/10/23 15:27) unknown contact metal agent Allergy (Unknown, Verified 07/10/23 15:27) Skin breakout lisinopril [LISINOPRIL] Allergy (Unknown, Verified 07/10/23 15:27) COUGH nickel [NICKEL] Allergy (Unknown, Verified 07/10/23 15:27) HIVES Medication List - Last Reconciled 07/10/23 by Tony Wilson MD bupropion HCl mg PO ezetimibe 10 mg PO DAILY 90 days fenofibrate 160 mg PO DAILY 90 days fluoxetine mg PO irbesartan-hydrochlorothiazide 300-12.5 mg 1 tab PO DAILY 90 days levothyroxine 75 mcg PO DAILY 90 days metformin 500 mg PO ONCE 90 days Tobacco use date assessed: 07/10/23 Dental Screening Dental Screen Date: 07/10/23 Did you have a dental visit in the last 12 months?: Yes Did you have a dental problem in the last 6 months where you did not have access to dental care?: No Was dental information given to patient?: Patient has dentist HPI Annual PE HPI Details Mammogram was Oct 2022 Pap smear was in Oct of this year thru [facility] Colon screening will be in 2027 Labs done recently reviewed TSH is 4.19, i am increasing her Levothyroxine to 88 mcg Hba1c is 6.4%, continue metformin 500 mg daily Bp is high today, Pt ate Potato chips last night f/u 4 M PFSH Medical History Obesity Obstructive sleep apnea on CPAP Diabetes 1.5, managed as type 2 Anxiety, generalized Depression, major, recurrent Other specified hypothyroidism Hypertension, essential Surgical History History of ear surgery History of colonoscopy Family History Son No problems noted. Son No problems noted. Brother Colon cancer Other Adopted Social History Housing: House Alcohol intake: never Patient Tobacco Use Status: Former Tobacco user Quit Date: 2019 Tobacco use type: Cigarette Years Smoked: since age 11 e-Cigarette/Vaping Use: Never Used service: No Current occupational status: employed and disabled Cognitive needs: No Hearing needs: No Vision needs: Yes Female Reproductive History Menstrual Age of Menarche: 11 Questionnaire PHQ-9 Over the last 2 weeks, how often have you been bothered by any of the following problems? 1. Little interest or pleasure in doing things: more than half the days 2. Feeling down, depressed, or hopeless: more than half the days 3. Trouble falling or staying asleep, or sleeping too much: several days 4. Feeling tired or having little energy: more than half the days 5. Poor appetite or overeating: several days 6. Feeling bad about yourself - or that you are a failure or have let yourself or your family down: several days 7. Trouble concentrating on things, such as reading the newspaper or watching television: several days 8. Moving or speaking so slowly that other people could have noticed. Or the opposite - being so fidgety or restless that you have been moving around a lot more than usual: several days 9. Thoughts that you would be better off or of hurting yourself in some way: not at all Total score: 11 Depression Screening Interpretation: Negative 14041 - PHQ-9 Billing: Yes Source: Developed by Drs. Ezra Valdez, Miley Kulkarni, Jovanny Lainez and colleagues, with an educational keny from [employer]. Thrive Questionnaire Date Thrive assessed: 07/10/23 I am a: Patient What is your living situation today?: I have a steady place to live Within the past 12 months, did the food you bought not last and you didn't have the money to get more?: Never true Within the past 12 months, did you worry whether your food would run out before you got money to buy more?: Never true Do you have trouble paying for medicines?: No Do you have trouble getting transportation to medical appointments?: No Do you have trouble paying your heating and electricity bill?: No Do you have trouble taking care of your child, family member or friend?: No Do you have trouble with day-to-day activities such as bathing, preparing meals, shopping, managing finances, etc.?: No Are you currently unemployed and looking for a job?: No Are you interested in more education?: No AUDIT C Alcohol Use Questionnaire (AUDIT-C) 1. How often do you have a drink containing alcohol?: Never 3. How often do you have six or more drinks on one occasion?: Never Total Score: 0 Score Reviewed/Action Taken: Yes VIRGINIA-7 AMB Questionnaire VIRGINIA-7 Date VIRGINIA - 7 assessed: 07/10/23 Feeling nervous, anxious, or on edge: 0 = Not at all Not being able to stop or control worryin = Not at all Worrying too much about different things: 0 = Not at all Trouble relaxin = Not at all Being so restless that it is hard to sit still: 0 = Not at all Becoming easily annoyed or irritable: 1 = Several days Feeling afraid as if something awful might happen: 0 = Not at all Total [place]IA-7 score (0-4 normal; 5-9 mild; 10-14 moderate; 15-21 severe): 1 Source: Developed by Drs. Ezra Valdez, Miley Kulkarni, Jovanny Lainez and colleagues, with an educational keny from [employer]. VIRGINIA-7 Assessment Billing V[place]GINIA-7 Assessment Tool: [place]-7 Assessment [id number] Review of Systems Const Denies chills, Denies fever(s) and Denies headache(s) Eyes Denies blurry vision ENT Denies headache(s), Denies nasal discharge, Denies nasal obstruction, Denies odynophagia and Denies sinus pain Card Denies chest pain at rest and Denies chest pain with activity Resp Denies cough and Denies hemoptysis GI Denies diarrhea, Denies odynophagia, Denies vomiting and Denies hematemesis Reports as per HPI Musc Denies abnormal gait Skin/Breast Reports as per HPI Neuro Denies Neuro-related abnormal movements, Denies Abnormal speech present, Denies abnormal gait, Denies headache(s) and Denies Sensory deficit (Neuro) Psych Denies mood swings and Denies paranoia Endo Reports as per HPI Khadar/Lymph Reports as per HPI Aller/Immun Reports as per HPI Physical exam (Primary Care) Vital Signs: Last Vital Signs Pulse 106 H 07/10/23 15:27 BP 142/78 H 07/10/23 15:27 Pulse Ox 97 07/10/23 15:27 Oxygen Delivery Method Room Air 07/10/23 15:27 BMI result Body Mass Index 38.0 Tobacco/Smoking Status: Tobacco use Status Tobacco use date assessed 07/10/23 07/10/23 15:28 Patient Tobacco Use Status Former Tobacco user 07/10/23 15:28 Tobacco use type Cigarette 07/10/23 15:28 e-Cigarette/Vaping Use Never Used 07/10/23 15:28 PHQ-9: PHQ-9 Score PHQ-9: Total score 11 07/10/23 16:04 Depression Screening Interpretation: Negative Thrive Assessment: Date of Thrive Assessment Date Thrive assessed 07/10/23 07/10/23 15:56 Const General: cooperative, comfortable and no acute distress Orientation/consciousness: patient oriented x3 HENMT Head: Yes normocephalic and Yes atraumatic Eyes General: appearance normal, both eyes and all related structures Pupils: Equal, round and reactive pupils present EOM: EOMs intact bilaterally Neck Neck: Yes supple and No lymphadenopathy Thyroid: Thyroid normal Lymphatic: no lymphadenopathy noted Resp Effort & Inspection: normal respiratory effort and able to speak in complete sentences Auscultation: clear to auscultation bilaterally Cardio Heart sounds: S1 normal heart sound present and S2 normal heart sound present GI Palpation (GI): Soft to palpation and nontender Auscultation: normal bowel sounds General: Yes no CVA tenderness Back/Spine/Pelvis Back: no CVA tenderness Skin General skin exam: elasticity normal and turgor normal Neuro General: patient oriented x3 and gait normal Cranial nerves: Yes Equal, round and reactive pupils present Speech: No Abnormal speech present Sensory Exam: No Sensory deficit (Neuro) Coordination: tandem gait normal and Romberg test negative Extrem General: Yes normal exam except as noted and No edema Assessment and Plan Assessment & Plan (1) Hypertension, essential: Code(s): I10 - Essential (primary) hypertension (2) Other specified hypothyroidism: Code(s): E03.8 - Other specified hypothyroidism (3) Depression, major, recurrent: Code(s): F33.9 - Major depressive disorder, recurrent, unspecified Qualifiers: Active/Remission status: in partial remission Qualified Code(s): F33.41 - Major depressive disorder, recurrent, in partial remission (4) Anxiety, generalized: Code(s): F41.1 - Generalized anxiety disorder (5) Diabetes 1.5, managed as type 2: Code(s): E13.9 - Other specified diabetes mellitus without complications (6) Obstructive sleep apnea on CPAP: Code(s): G47.33 - Obstructive sleep apnea (adult) (pediatric); Z99.89 - Dependence on other enabling machines and devices (7) Obesity (BMI 30-39.9): Code(s): E66.9 - Obesity, unspecified (8) Encounter for general adult medical examination with abnormal findings: Code(s): Z00.01 - Encounter for general adult medical examination with abnormal findings Plan Mammogram was Oct 2022 Pap smear was in Oct of this year thru [facility] Colon screening will be in 2027 Labs done recently reviewed TSH is 4.19, i am increasing her Levothyroxine to 88 mcg Hba1c is 6.4%, continue metformin 500 mg daily Bp is high today, Pt ate Potato chips last night f/u 4 M Orders: Orders Hemoglobin A1c 3 Months E03.8 - Other specified hypothyroidism, E13.9 - Other specified diabetes mellitus without complications, E66.9 - Obesity, unspecified, F33.9 - Major depressive disorder, recurrent, unspecified, F41.1 - Generalized anxiety disorder, G47.33 - Obstructive sleep apnea (adult) (pediatric), I10 - Essential (primary) hypertension, Z99.89 - Dependence on other enabling machines and devices Comprehensive Met. Panel 3 Months E13.9 - Other specified diabetes mellitus without complications, I10 - Essential (primary) hypertension TSH reflex Free T4 3 Months E03.8 - Other specified hypothyroidism Microalbumin, Random (w Creat) 3 Months E13.9 - Other specified diabetes mellitus without complications LDL Cholesterol Direct 3 Months I10 - Essential (primary) hypertension Medications: Changed From levothyroxine 75 mcg PO DAILY 90 days 90 tabs 0RF To levothyroxine 88 mcg PO DAILY 90 tabs 1RF 90 days Coding Level of Care Code Est Pt Prev Care 40-64y(82196) Diagnoses Hypertension, essential I10 Other specified hypothyroidism E03.8 Recurrent major depressive disorder, in partial remission F33.41 Active/Remission status: in partial remission Anxiety, generalized F41.1 Diabetes 1.5, managed as type 2 E13.9 Obstructive sleep apnea on CPAP G47.33; Z99.89 Obesity (BMI 30-39.9) E66.9 Encounter for general adult medical examination with abnormal findings Z00.01 Additional Codes VIRGINIA-7 Assessment Billing - V[place]GINIA-7 Assessment Tool: VIRGINIA-7 Assessment 27298 ([id number])
== END 2023-07-10 15:56 | disposition home or self-care (01) ==
PROVIDERS: PCP Internal Medicine; Visit Provider Internal Medicine
DX: Z00.00 Encounter for general adult medical examination without abnormal findings (principal); I10 Essential (primary) hypertension; E03.8 Other specified hypothyroidism; F33.41 Major depressive disorder, recurrent, in partial remission; E13.9 Other specified diabetes mellitus without complications; F41.1 Generalized anxiety disorder; G47.33 Obstructive sleep apnea (adult) (pediatric); Z99.89 Dependence on other enabling machines and devices; E66.9 Obesity, unspecified
CPT/HCPCS: 99396

== ENCOUNTER 2023-08-03 08:19 | Outpatient (AMB) | payer MEDICARE, MEDICAID, SELFPAY ==
[2023-08-03 08:20] VITALS: BP 132/76; PULSE 90; O2SAT 98; BMI 38.0
--- NOTE | 2023-08-03 08:20 | MHC.PC.OV ---
Vital Signs 08/03/23 08:20 Height 5 ft 5 in Weight 228 lb 4 oz BMI 38.0 BP 132/76 Blood Pressure Location Rt brachial Position Sitting Pulse 90 Pulse Source Pulse Oximeter Pulse Oximetry (%) 98 Oxygen Delivery Method Room Air Intake Visit Reasons: Rash Allergies amlodipine Allergy (Unknown, Verified 08/03/23 08:21) unknown contact metal agent Allergy (Unknown, Verified 08/03/23 08:21) Skin breakout lisinopril [LISINOPRIL] Allergy (Unknown, Verified 08/03/23 08:21) COUGH nickel [NICKEL] Allergy (Unknown, Verified 08/03/23 08:21) HIVES Medication List - Last Reconciled 08/03/23 by Tony Wilson MD bupropion HCl mg PO ezetimibe 10 mg PO DAILY 90 days fenofibrate 160 mg PO DAILY 90 days fluoxetine mg PO irbesartan-hydrochlorothiazide 300-12.5 mg 1 tab PO DAILY 90 days levothyroxine 88 mcg PO DAILY 90 days metformin 500 mg PO ONCE 90 days Tobacco use date assessed: 08/03/23 Dental Screening Dental Screen Date: 08/03/23 Did you have a dental visit in the last 12 months?: Yes Did you have a dental problem in the last 6 months where you did not have access to dental care?: No Was dental information given to patient?: Patient has dentist HPI Rash HPI Details Patient is a 57-year-old female came in today to be evaluated for rash on her scalp and face Patient tells me that she has been using head and shoulder for a while because her son has dandruff. But lately she has noticed a lot of scaling in her scalp especially behind her right ear and back and now it is also appearing around her eye bruise and nasolabial fold There is no fever no chills no pain PFSH Medical History Obesity Obstructive sleep apnea on CPAP Diabetes 1.5, managed as type 2 Anxiety, generalized Depression, major, recurrent Other specified hypothyroidism Hypertension, essential Surgical History History of ear surgery History of colonoscopy Family History Son No problems noted. Son No problems noted. Brother Colon cancer Other Adopted Social History Housing: House Alcohol intake: never Patient Tobacco Use Status: Former Tobacco user Quit Date: 2019 Tobacco use type: Cigarette Years Smoked: since age 11 e-Cigarette/Vaping Use: Never Used service: No Current occupational status: employed and disabled Cognitive needs: No Hearing needs: No Vision needs: Yes Female Reproductive History Menstrual Age of Menarche: 11 Questionnaire Thrive Questionnaire Date Thrive assessed: 07/10/23 AUDIT C Alcohol Use Questionnaire (AUDIT-C) 1. How often do you have a drink containing alcohol?: Never 3. How often do you have six or more drinks on one occasion?: Never Total Score: 0 Score Reviewed/Action Taken: Yes VIRGINIA-7 AMB Questionnaire VIRGINIA-7 Date VIRGINIA - 7 assessed: 07/10/23 Source: Developed by Drs. Ezra Valdez, Miley Kulkarni, Jovanny Lainez and colleagues, with an educational keny from [employer]. Review of Systems Const All systems reviewed & are unremarkable except as noted in HPI and below Physical exam (Primary Care) Vital Signs: Last Vital Signs Pulse 90 08/03/23 08:20 BP 132/76 08/03/23 08:20 Pulse Ox 98 08/03/23 08:20 Oxygen Delivery Method Room Air 08/03/23 08:20 BMI result Body Mass Index 38.0 Tobacco/Smoking Status: Tobacco use Status Tobacco use date assessed 08/03/23 08/03/23 08:21 Patient Tobacco Use Status Former Tobacco user 08/03/23 08:21 Tobacco use type Cigarette 08/03/23 08:21 e-Cigarette/Vaping Use Never Used 08/03/23 08:21 Thrive Assessment: Date of Thrive Assessment Date Thrive assessed 07/10/23 08/03/23 08:21 Const General: no acute distress Orientation/consciousness: patient oriented x3 Eyes General: appearance normal, both eyes and all related structures Resp Effort & Inspection: normal respiratory effort and able to speak in complete sentences Auscultation: clear to auscultation bilaterally Skin Other: Scaling scalp especially right side behind ear and back, scaling around eye brows Neuro General: patient oriented x3 Psych Mental Status: mental status grossly normal Assessment and Plan Assessment & Plan (1) Seborrheic dermatitis of scalp: Code(s): L21.9 - Seborrheic dermatitis, unspecified Plan Patient is a 57-year-old female came in today to be evaluated for rash on her scalp and face Patient tells me that she has been using head and shoulder for a while because her son has dandruff. But lately she has noticed a lot of scaling in her scalp especially behind her right ear and back and now it is also appearing around her eye bruise and nasolabial fold There is no fever no chills no pain I am treating her with nasal raw shampoo 3 times a week And 2.5% hydrocortisone cream only at night over the scaly rash I am bruise and nasolabial fold until resolved Medications: New hydrocortisone 2.5% 1 appl topical BEDTIME PRN 30 grams 0RF for rash face 30 days ketoconazole 2% 1 appl topical 3XW 120 mL 2RF 30 days Coding Level of Care Code Est Pt Level 3 (91610) Diagnoses Seborrheic dermatitis of scalp L21.9
== END 2023-08-03 08:42 | disposition home or self-care (01) ==
PROVIDERS: PCP Internal Medicine; Visit Provider Internal Medicine
DX: L21.9 Seborrheic dermatitis, unspecified (principal)
CPT/HCPCS: 99213

== ENCOUNTER 2023-09-14 14:43 | Outpatient (AMB) | payer MEDICARE, MEDICAID, SELFPAY ==
[2023-09-14 14:53] VITALS: BP 138/82; PULSE 111; O2SAT 95; BMI 38.5
--- NOTE | 2023-09-14 14:53 | A.OFFPC_ITS ---
Vital Signs 3 09/14/23 14:53 Height 5 ft 5 in Weight 231 lb 6 oz BMI 38.5 BP 138/82 Blood Pressure Location Lt brachial Position Sitting Pulse 111 H Pulse Source Pulse Oximeter Pulse Oximetry (%) 95 Oxygen Delivery Method Room Air Intake Visit Reasons: reactions to meds/ wanting referrals Allergies amlodipine Allergy (Unknown, Verified 09/14/23 14:54) unknown contact metal agent Allergy (Unknown, Verified 09/14/23 14:54) Skin breakout lisinopril [LISINOPRIL] Allergy (Unknown, Verified 09/14/23 14:54) COUGH nickel [NICKEL] Allergy (Unknown, Verified 09/14/23 14:54) HIVES Medication List - Last Reconciled 09/14/23 by Tony Wilson MD bupropion HCl mg PO ezetimibe 10 mg PO DAILY 90 days fenofibrate 160 mg PO DAILY 90 days fluoxetine mg PO hydrocortisone 2.5% 1 appl topical BEDTIME PRN 30 days irbesartan-hydrochlorothiazide 300-12.5 mg 1 tab PO DAILY 90 days ketoconazole 2% 1 appl topical 3XW 30 days levothyroxine 88 mcg PO DAILY 90 days metformin 500 mg PO ONCE 90 days Tobacco use date assessed: 09/14/23 Dental Screening Dental Screen Date: 09/14/23 Did you have a dental visit in the last 12 months?: Yes Did you have a dental problem in the last 6 months where you did not have access to dental care?: No Was dental information given to patient?: Patient has dentist HPI reactions to meds/ wanting referrals 2 HPI0 Details Patient has developed seborrheic dermatitis which is now causing rash under the eyes She would like to have a referral to Dermatology Patient says that since she has started taking levothyroxine 88 mcg she has noticed all these changes She would like to go back to 75 mcg, she had some leftover and she started taking that 1 week ago and she is already feeling better Patient will continue with 75 mcg and repeat labs again in about 6 or 8 weeks [facility] Medical History Obesity Obstructive sleep apnea on CPAP Diabetes 1.5, managed as type 2 Anxiety, generalized Depression, major, recurrent Other specified hypothyroidism Hypertension, essential Surgical History History of ear surgery History of colonoscopy Family History Son No problems noted. Son No problems noted. Brother Colon cancer Other Adopted Social History Housing: House Alcohol intake: never Patient Tobacco Use Status: Former Tobacco user Quit Date: 2019 Tobacco use type: Cigarette Years Smoked: since age 11 e-Cigarette/Vaping Use: Never Used service: No Current occupational status: employed and disabled Cognitive needs: No Hearing needs: No Vision needs: Yes Female Reproductive History Menstrual Age of Menarche: 11 Questionnaire Thrive Questionnaire Date Thrive assessed: 07/10/23 AUDIT C Alcohol Use Questionnaire (AUDIT-C) 1. How often do you have a drink containing alcohol?: Never 3. How often do you have six or more drinks on one occasion?: Never Total Score: 0 Score Reviewed/Action Taken: Yes VIRGINIA-7 AMB Questionnaire VIRGINIA-7 Date VIRGINIA - 7 assessed: 07/10/23 Source: Developed by Drs. Ezra Valdez, Miley Kulkarni, Jovanny Lainez and colleagues, with an educational keny from [employer]. Review of Systems Const Denies chills and Denies fever(s) ENT Denies epistaxis and Denies nasal discharge Card Denies chest pain Resp Denies chest congestion, Denies cough and Denies hemoptysis GI Denies diarrhea and Denies nausea Neuro Reports no additional complaints Psych Reports no additional complaints Endo Reports no additional complaints Physical exam (Primary Care) Vital Signs: Last Vital Signs Pulse 111 H 09/14/23 14:53 BP 138/82 09/14/23 14:53 Pulse Ox 95 09/14/23 14:53 Oxygen Delivery Method Room Air 09/14/23 14:53 BMI result Body Mass Index 38.5 Tobacco/Smoking Status: Tobacco use Status Tobacco use date assessed 09/14/23 09/14/23 14:56 Patient Tobacco Use Status Former Tobacco user 09/14/23 14:56 Tobacco use type Cigarette 09/14/23 14:56 e-Cigarette/Vaping Use Never Used 09/14/23 14:56 Thrive Assessment: Date of Thrive Assessment Date Thrive assessed 07/10/23 09/14/23 14:56 Const General: cooperative, comfortable and no acute distress Orientation/consciousness: patient oriented x3 HENMT Head: Yes normocephalic Face images: 2 1. Puffiness and dryness 2. Puffiness and dryness Eyes General: appearance normal, both eyes and all related structures Neck Neck: Yes supple Resp Effort & Inspection: normal respiratory effort, no cough and no stridor Skin General skin exam: turgor normal Neuro General: patient oriented x3, tone normal and moves all extremities Extrem Right lower extremity: no edema Left lower extremity: no edema Assessment and Plan Assessment & Plan (1) Seborrheic dermatitis of scalp: Code(s): L21.9 - Seborrheic dermatitis, unspecified (2) Other specified hypothyroidism: Code(s): E03.8 - Other specified hypothyroidism Plan Patient has developed seborrheic dermatitis which is now causing rash under the eyes She would like to have a referral to Dermatology Patient says that since she has started taking levothyroxine 88 mcg she has noticed all these changes She would like to go back to 75 mcg, she had some leftover and she started taking that 1 week ago and she is already feeling better Patient will continue with 75 mcg and repeat labs again in about 6 or 8 weeks Orders: Referrals 2 Dermatology Referral L21.9 - Seborrheic dermatitis, unspecified Medications: Refilled 2 ketoconazole 2% 1 appl topical 3XW 120 mL 2RF 30 days Coding Level of Care Code Est Pt Level 3 (22547) Diagnoses Seborrheic dermatitis of scalp L21.9 Other specified hypothyroidism E03.8
== END 2023-09-14 15:29 | disposition home or self-care (01) ==
PROVIDERS: PCP Internal Medicine; Visit Provider Internal Medicine
DX: L21.9 Seborrheic dermatitis, unspecified (principal); E03.8 Other specified hypothyroidism
CPT/HCPCS: 99213

== ENCOUNTER 2023-10-23 14:27 | Outpatient (AMB) | payer MEDICARE, SELFPAY ==
[2023-10-23 14:54] VITALS: BP 142/80; BMI 38.3
--- NOTE | 2023-10-23 14:54 | A.OFFVIS_ITS ---
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 Emr Analyst Required: No Information Interpreted: non-clinical & clinical Business Continuity Manager: Business Continuity Manager Present (Aidyn) Allergies amlodipine Allergy (Unknown, Verified 10/23/23 14:56) unknown contact metal agent Allergy (Unknown, Verified 10/23/23 14:56) Skin breakout lisinopril [LISINOPRIL] Allergy (Unknown, Verified 10/23/23 14:56) COUGH nickel [NICKEL] Allergy (Unknown, Verified 10/23/23 14:56) HIVES Is last menstrual period known: No Post menopausal: Yes Patient : No HPI HPI Comments History of Present Illness Details She is a postmenopausal woman presenting for her annual obstetrics/gynecology nurse examination. She is doing well with no concerns. Not eating as well as she'd like, going to the obstetrics/gynecology nurse regularly. Currently sexually active. Denies any vaginal dryness or irritation. STI testing offered; she accepts. Last pap smear; 01/2021, neg. Last mammogram; 10/2022. Colonoscopy is UTD. Denies any family history of breast, ovarian or colon cancer. [facility] Medical History Obesity Obstructive sleep apnea on CPAP Diabetes 1.5, managed as type 2 Anxiety, generalized Depression, major, recurrent Other specified hypothyroidism Hypertension, essential Surgical History History of ear surgery History of colonoscopy Family History Son No problems noted. Son No problems noted. Brother Colon cancer Other Adopted Social History Housing: House Alcohol intake: never Patient Tobacco Use Status: Former Tobacco user Quit Date: 2019 Tobacco use type: Cigarette Years Smoked: since age 11 e-Cigarette/Vaping Use: Never Used service: No Current occupational status: employed and disabled Cognitive needs: No Hearing needs: No Vision needs: Yes Female Reproductive History Menstrual Age of Menarche: 11 control method: none Total pregnancies: 2 Full term: 2 Number of Living Children: 2 Date of last pap smear: 02/09/21 (negative) History of abnormal pap smear: No Date of Mammogram: 11/01/22 Review of Systems Const All systems reviewed & are unremarkable except as noted in HPI and below Reports as per HPI Eyes Reports no additional complaints ENT Reports no additional complaints Card Reports no additional complaints Resp Reports no additional complaints GI Reports as per HPI and Reports no additional complaints Reports as per HPI Musc Reports no additional complaints Skin/Breast Reports as per HPI Neuro Reports no additional complaints Psych Reports no additional complaints Endo Reports no additional complaints Khadar/Lymph Reports no additional complaints Aller/Immun Reports no additional complaints Physical Exam Vital Signs: Last Vital Signs BP 142/80 H 10/23/23 14:54 BMI result Body Mass Index 38.3 Const General: cooperative, healthy appearing, no acute distress, well developed and alert Orientation/consciousness: patient oriented x3 HEENT Head: Yes normal to inspection Eyes General: appearance normal, both eyes and all related structures Neck Neck: Yes normal visual inspection Thyroid: Thyroid normal Chest Chest palpation & inspection: normal inspection of the chest and other (no puckering, dimpling, peau de orange, retraction, discharge, masses) Breast/axilla inspection: normal inspection of the breasts Breast/axilla palpation: normal palpation of the breasts Resp Effort & Inspection: normal respiratory effort GI Inspection: Yes normal to inspection Palpation (GI): Soft to palpation Rectal Exam - Female: deferred General: Yes bladder normal to palpation External Female Exam: normal external appearance and normal appearance of the urethra Speculum Exam - Vagina: normal appearance of the vagina, normal palpation, normal vaginal discharge and vagina atrophic Speculum Exam - Cervix: normal appearance of the cervix and normal palpation Bimanual exam- vagina & uterus: normal bimanual exam, normal palpation, uterine size normal, bladder normal to palpation, normal palpation and non-tender Bimanual Exam- Adnexa, other: no masses Skin General skin exam: no rashes or lesions noted Rashes: no rashes Neuro General: patient oriented x3 Cognition (Neuro): normal cognition Extrem General: Yes normal to inspection Psych Attitude: cooperative Thought process: Normal thought process present Assessment & Plan Assessment & Plan (1) Encounter for well woman exam with routine gynecological exam: Code(s): Z01.419 - Encounter for gynecological examination (general) (routine) without abnormal findings Plan Discussed: Current recommendations for pap smears per ASCCP guidelines. Breast awareness, periodic self breast exams and yearly mammogram. Maintain a healthy lifestyle, well balanced diet including Calcium 1,200 mg and Vitamin D 600 IU daily, and routine exercise. Contact the office with any postmenopausal bleeding. All of her questions and concerns were addressed to the best of my ability. RTO in 1 year for annual obstetrics/gynecology nurse exam. This note is constructed using voice recognition software. While every effort has been made to ensure accuracy, retail coordinator errors may have been included. Coding Level of Care Code Est Pt Prev Care 40-64y(47589) Diagnoses Encounter for well woman exam with routine gynecological exam Z01.419
== END 2023-10-23 15:41 | disposition home or self-care (01) ==
LOC: HO.HWS 14:27
PROVIDERS: PCP Internal Medicine; Visit Provider Advanced Practice Midwife
DX: Z01.419 Encounter for gynecological examination (general) (routine) without abnormal findings (principal)
CPT/HCPCS: 99396

== ENCOUNTER → 2023-10-23 14:27 | Outpatient (BNVA) | payer MEDICARE, SELFPAY | PROVIDERS: PCP Internal Medicine; Visit Provider Advanced Practice Midwife ==

== ENCOUNTER → 2023-11-06 13:30 | Outpatient (BNV) | payer MEDICARE, SELFPAY | PROVIDERS: PCP Internal Medicine; Visit Provider Radiology Diagnostic Radiology | DX: Z12.31 Encounter for screening mammogram for malignant neoplasm of breast (principal) | CPT/HCPCS: 77063; 77067 ==

== ENCOUNTER 2023-11-06 13:32 | Outpatient (REF) | payer MEDICARE, SELFPAY ==
--- NOTE | ~2023-11-06 | MM_ITS ---
EXAMINATION: MM SCREENING DIGITAL BREAST TOMOSYNTHESIS, BILATERAL CLINICAL INFORMATION: Screening. Asymptomatic. COMPARISON: Mammography: This study is compared with prior exams dating back to 2018. TECHNIQUE: Digital breast tomosynthesis is performed in both the craniocaudal and mediolateral oblique views along with computer-aided detection (CAD). Synthesized 2D images are generated from the tomosynthesis. FINDINGS: There are scattered areas of fibroglandular density (ACR BI-RADS breast composition Category b). There are no significant masses, abnormal calcifications, or other abnormalities. There is a tissue marker in the medial aspect of the left breast from prior benign percutaneous biopsy. MM/MM tomosynthesis screening BI IMPRESSION: No mammographic evidence of malignancy. ASSESSMENT: BI-RADS BI-RADS 2 - Benign Findings RECOMMENDATION: Routine annual mammography screening. 1 year F/U This examination should not preclude the clinical evaluation of a suspicious palpable abnormality. This patient's information was entered into a reminder system with a target due date for their next mammogram.
== END 2023-11-06 13:33 | disposition home or self-care (01) ==
LOC: HO.MAMMO 13:32
PROVIDERS: PCP Internal Medicine; Visit Provider Internal Medicine
DX: Z12.31 Encounter for screening mammogram for malignant neoplasm of breast (principal)
CPT/HCPCS: 77063; 77067

== ENCOUNTER 2023-11-13 13:53 | Outpatient (AMB) | payer MEDICARE, MEDICAID, SELFPAY ==
[2023-11-13 13:57] VITALS: BP 148/84; PULSE 113; O2SAT 98; BMI 38.5
--- NOTE | 2023-11-13 13:57 | MHC.PC.OV ---
Vital Signs 11/13/23 13:57 11/13/23 14:26 Height 5 ft 5 in Weight 231 lb 6 oz BMI 38.5 BP 148/84 H 142/88 H Blood Pressure Location Rt brachial Lt brachial Position Sitting Sitting Pulse 113 H Pulse Source Pulse Oximeter Pulse Oximetry (%) 98 Oxygen Delivery Method Room Air Intake Visit Reasons: 4 month fu Allergies amlodipine Allergy (Unknown, Verified 11/13/23 13:58) unknown contact metal agent Allergy (Unknown, Verified 11/13/23 13:58) Skin breakout lisinopril [LISINOPRIL] Allergy (Unknown, Verified 11/13/23 13:58) COUGH nickel [NICKEL] Allergy (Unknown, Verified 11/13/23 13:58) HIVES Medication List - Last Reconciled 11/13/23 by Tony Wilson MD bupropion HCl mg PO ezetimibe 10 mg PO DAILY 90 days fenofibrate 160 mg PO DAILY 90 days fluoxetine mg PO hydrocortisone 2.5% 1 appl topical BEDTIME PRN 30 days irbesartan-hydrochlorothiazide 300-12.5 mg 1 tab PO DAILY 90 days ketoconazole 2% 1 appl topical 3XW 30 days levothyroxine 75 mcg PO DAILY 90 days metformin 500 mg PO ONCE 90 days Tobacco use date assessed: 11/13/23 Dental Screening Dental Screen Date: 11/13/23 Did you have a dental visit in the last 12 months?: Yes Did you have a dental problem in the last 6 months where you did not have access to dental care?: No Was dental information given to patient?: Patient has dentist HPI 4 month fu HPI Details Patient is a 57-year-old female came today for follow-up appointment Patient would like to try medication for weight loss She is taking psychiatric medication through Psychiatry I will start Topamax after her blood pressure is controlled Currently her blood pressure is elevated patient is taking her regular blood pressure medication I am adding atenolol 25 mg as well She will come in 4 weeks for follow-up on that Patient says that since she has started taking levothyroxine 88 mcg she has developed seborrhea She would like to go back to 75 mcg, she had some leftover and she started taking that 1 week ago and she is already feeling better Patient will continue with 75 mcg Patient is diabetic currently she is taking metformin 500 mg, hemoglobin A1c is stable Hypertension: Continue irbesartan hydrochlorothiazide 300-12.5 mg, tolerating medication. Lipid disorder: Continue fenofirate 160 mg Depression: Patient is is stable currently she is on Wellbutrin and fluoxetine through psychiatrist BMI is elevated : patient is having difficulty losing weight. Sleep apnea: Management through neurology Follow-up 4 weeks for blood pressure and [facility] Medical History Obesity Obstructive sleep apnea on CPAP Diabetes 1.5, managed as type 2 Anxiety, generalized Depression, major, recurrent Other specified hypothyroidism Hypertension, essential Surgical History History of ear surgery History of colonoscopy Family History Son No problems noted. Son No problems noted. Brother Colon cancer Other Adopted Social History Housing: House Alcohol intake: never Patient Tobacco Use Status: Former Tobacco user Quit Date: 2019 Tobacco use type: Cigarette Years Smoked: since age 11 e-Cigarette/Vaping Use: Never Used service: No Current occupational status: employed and disabled Cognitive needs: No Hearing needs: No Vision needs: Yes Female Reproductive History Menstrual Age of Menarche: 11 Questionnaire Thrive Questionnaire Date Thrive assessed: 07/10/23 AUDIT C Alcohol Use Questionnaire (AUDIT-C) 1. How often do you have a drink containing alcohol?: Never 3. How often do you have six or more drinks on one occasion?: Never Total Score: 0 Score Reviewed/Action Taken: Yes [place]-7 AMB Questionnaire V[place]GINIA-7 Date [place] - 7 assessed: 07/10/23 Source: Developed by Drs. Ezra Valdez, Miley Kulkarni, Jovanny Lainez and colleagues, with an educational keny from [employer]. Review of Systems Const Denies chills and Denies fever(s) ENT Denies epistaxis and Denies nasal discharge Card Denies chest pain Resp Denies chest congestion, Denies cough and Denies hemoptysis GI Denies diarrhea and Denies nausea Skin/Breast Denies rash Neuro Reports no additional complaints Psych Reports no additional complaints Endo Reports no additional complaints Physical exam (Primary Care) Vital Signs: Last Vital Signs Pulse 113 H 11/13/23 13:57 BP 142/88 H 11/13/23 14:26 Pulse Ox 98 11/13/23 13:57 Oxygen Delivery Method Room Air 11/13/23 13:57 BMI result Body Mass Index 38.5 Tobacco/Smoking Status: Tobacco use Status Tobacco use date assessed 11/13/23 11/13/23 14:04 Patient Tobacco Use Status Former Tobacco user 11/13/23 14:04 Tobacco use type Cigarette 11/13/23 14:04 e-Cigarette/Vaping Use Never Used 11/13/23 14:04 Thrive Assessment: Date of Thrive Assessment Date Thrive assessed 07/10/23 11/13/23 14:04 Const General: cooperative, comfortable and no acute distress Orientation/consciousness: patient oriented x3 HENMT Head: Yes normocephalic Eyes General: appearance normal, both eyes and all related structures Neck Neck: Yes supple Resp Effort & Inspection: normal respiratory effort, no cough and no stridor Cardio Rhythm: regular rhythm Heart sounds: S1 normal heart sound present and S2 normal heart sound present Skin General skin exam: turgor normal Neuro General: patient oriented x3, tone normal and moves all extremities Extrem Right lower extremity: no edema Left lower extremity: no edema Assessment and Plan Assessment & Plan (1) Diabetes 1.5, managed as type 2: Code(s): E13.9 - Other specified diabetes mellitus without complications (2) Hypertension, essential: Code(s): I10 - Essential (primary) hypertension (3) Seborrheic dermatitis of scalp: Code(s): L21.9 - Seborrheic dermatitis, unspecified (4) Other specified hypothyroidism: Code(s): E03.8 - Other specified hypothyroidism (5) Depression, major, recurrent: Code(s): F33.9 - Major depressive disorder, recurrent, unspecified Qualifiers: Active/Remission status: in partial remission Qualified Code(s): F33.41 - Major depressive disorder, recurrent, in partial remission (6) Anxiety, generalized: Code(s): F41.1 - Generalized anxiety disorder (7) Obstructive sleep apnea on CPAP: Code(s): G47.33 - Obstructive sleep apnea (adult) (pediatric); Z99.89 - Dependence on other enabling machines and devices (8) Obesity (BMI 30-39.9): Code(s): E66.9 - Obesity, unspecified Plan Patient is a 57-year-old female came today for follow-up appointment Patient would like to try medication for weight loss She is taking psychiatric medication through Psychiatry I will start Topamax after her blood pressure is controlled Currently her blood pressure is elevated patient is taking her regular blood pressure medication I am adding atenolol 25 mg as well She will come in 4 weeks for follow-up on that Patient says that since she has started taking levothyroxine 88 mcg she has developed seborrhea She would like to go back to 75 mcg, she had some leftover and she started taking that 1 week ago and she is already feeling better Patient will continue with 75 mcg Patient is diabetic currently she is taking metformin 500 mg, hemoglobin A1c is stable Hypertension: Continue irbesartan hydrochlorothiazide 300-12.5 mg, tolerating medication. Lipid disorder: Continue fenofirate 160 mg Depression: Patient is is stable currently she is on Wellbutrin and fluoxetine through psychiatrist BMI is elevated : patient is having difficulty losing weight. Sleep apnea: Management through neurology Follow-up 4 weeks for blood pressure and Medications: New atenolol 25 mg PO DAILY 30 tabs 0RF Coding Level of Care Code Est Pt Level 4 (84611) Diagnoses Diabetes 1.5, managed as type 2 E13.9 Hypertension, essential I10 Seborrheic dermatitis of scalp L21.9 Other specified hypothyroidism E03.8 Recurrent major depressive disorder, in partial remission F33.41 Active/Remission status: in partial remission Anxiety, generalized F41.1 Obstructive sleep apnea on CPAP G47.33; Z99.89 Obesity (BMI 30-39.9) E66.9
[2023-11-13 14:26] VITALS: BP 142/88
== END 2023-11-13 14:34 | disposition home or self-care (01) ==
PROVIDERS: PCP Internal Medicine; Visit Provider Internal Medicine
DX: I10 Essential (primary) hypertension (principal); E13.9 Other specified diabetes mellitus without complications; F33.41 Major depressive disorder, recurrent, in partial remission; L21.9 Seborrheic dermatitis, unspecified; E03.8 Other specified hypothyroidism; F41.1 Generalized anxiety disorder; G47.33 Obstructive sleep apnea (adult) (pediatric); Z99.89 Dependence on other enabling machines and devices; E66.9 Obesity, unspecified
CPT/HCPCS: 99214

== ENCOUNTER 2023-11-13 14:34 | Outpatient (REF) | payer MEDICARE, MEDICAID, SELFPAY ==
[2023-11-13 16:24] LABS: Estimated Average Glucose 131 mg/dL; Hemoglobin A1C 149.5667 umol/L; Hemoglobin A1c % 6.2 % (<6.0)
[2023-11-13 16:49] LABS: Alanine Aminotransferase 29 U/L (0-31); Albumin Level 4.3 g/dL (3.5-5.0); Alkaline Phosphatase 54 U/L (39-117); Anion Gap 13 (12-20); Aspartate Amino Transferase 26 U/L (5-31); Bilirubin Total 0.2 mg/dL (0.0-1.0); Blood Urea Nitrogen 20 mg/dL (9-16); Carbon Dioxide 27 mmol/L (22-29); Chloride 105 mmol/L (96-108); Estimated Glomerular Filt Rate 60; Glucose Random 111 mg/dL (60-115); Potassium 3.9 mmol/L (3.3-5.1); Sodium 141 mmol/L (135-145); Total Protein 7.5 g/dL (6.5-8.0)
[2023-11-13 16:51] LABS: TSH reflex Free T4 2.63 uIU/mL (0.32-4.0)
[2023-11-13 17:15] LABS: Creatinine Urine 205.41 mg/dL; Microalbum/Creatinine Ratio Ur 55.4 ug/mg cr (<30)
[2023-11-15 12:38] LABS: LDL Cholesterol Direct 130 mg/dL (<100)
== END 2023-11-13 14:35 | disposition home or self-care (01) ==
LOC: HO.HMGCLDS 14:34
PROVIDERS: PCP Internal Medicine; Visit Provider Internal Medicine
DX: E13.9 Other specified diabetes mellitus without complications (principal); E03.8 Other specified hypothyroidism; I10 Essential (primary) hypertension; E66.9 Obesity, unspecified; G47.33 Obstructive sleep apnea (adult) (pediatric); F41.1 Generalized anxiety disorder; F33.9 Major depressive disorder, recurrent, unspecified; Z99.89 Dependence on other enabling machines and devices
CPT/HCPCS: 36415; 80053; 82043; 82570; 83036; 83721; 84443

== ENCOUNTER 2023-12-12 13:15 | Outpatient (AMB) | payer MEDICARE, MEDICAID, SELFPAY ==
--- NOTE | 2023-12-12 13:19 | A.OFFPC_ITS ---
Vital Signs 12/12/23 13:20 Height 5 ft 5 in Weight 235 lb 2 oz BMI 39.1 BP 128/72 Blood Pressure Location Rt brachial Position Sitting Pulse 79 Pulse Source Pulse Oximeter Pulse Oximetry (%) 96 Oxygen Delivery Method Room Air Intake Visit Reasons: 4 WK F/U BP Meds per [place] Allergies amlodipine Allergy (Unknown, Verified 12/12/23 13:22) unknown contact metal agent Allergy (Unknown, Verified 12/12/23 13:22) Skin breakout lisinopril [LISINOPRIL] Allergy (Unknown, Verified 12/12/23 13:22) COUGH nickel [NICKEL] Allergy (Unknown, Verified 12/12/23 13:22) HIVES Medication List - Last Reconciled 12/12/23 by Tony Wilson MD atenolol 25 mg PO DAILY bupropion HCl mg PO ezetimibe 10 mg PO DAILY 90 days fenofibrate 160 mg PO DAILY 90 days fluoxetine mg PO irbesartan-hydrochlorothiazide 300-12.5 mg 1 tab PO DAILY 90 days levothyroxine 75 mcg PO DAILY 90 days metformin 500 mg PO ONCE 90 days Tobacco use date assessed: 12/12/23 Dental Screening Dental Screen Date: 12/12/23 Did you have a dental visit in the last 12 months?: Yes Did you have a dental problem in the last 6 months where you did not have access to dental care?: No Was dental information given to patient?: Patient has dentist HPI 4 WK F/U BP Meds per [place] HPI Details Blood pressure is controlled with atenolol 25 mg initially was taking in the morning and it was causing drowsiness Now she is taking it at night, doing much better, tolerating medication Patient is already doing some weight training and will add walking routine She has still not been able to lose any weight We talked about phentermine side effect today I will be sending 15 mg of phentermine to start once a day Patient knows that she will have to come in every 4 weeks so we can we her and if she is not able to lose at least 5 lb every month we will reconsider discontinuing the medication. [facility] Medical History Obesity Obstructive sleep apnea on CPAP Diabetes 1.5, managed as type 2 Anxiety, generalized Depression, major, recurrent Other specified hypothyroidism Hypertension, essential Surgical History History of ear surgery History of colonoscopy Family History Son No problems noted. Son No problems noted. Brother Colon cancer Other Adopted Social History Housing: House Alcohol intake: never Patient Tobacco Use Status: Former Tobacco user Quit Date: 2019 Tobacco use type: Cigarette Years Smoked: since age 11 e-Cigarette/Vaping Use: Never Used service: No Current occupational status: employed and disabled Cognitive needs: No Hearing needs: No Vision needs: Yes Female Reproductive History Menstrual Age of Menarche: 11 Questionnaire Thrive Questionnaire Date Thrive assessed: 07/10/23 AUDIT C Alcohol Use Questionnaire (AUDIT-C) 1. How often do you have a drink containing alcohol?: Never 3. How often do you have six or more drinks on one occasion?: Never Total Score: 0 Score Reviewed/Action Taken: Yes V[place]-7 AMB Questionnaire VIRGINIA-7 Date [place] - 7 assessed: 07/10/23 Source: Developed by Drs. Ezra Valdez, Miley Kulkarni, Jovanny Lainez and colleagues, with an educational keny from [employer]. Review of Systems Const All systems reviewed & are unremarkable except as noted in HPI and below Physical exam (Primary Care) Vital Signs: Last Vital Signs Pulse 79 12/12/23 13:20 BP 128/72 12/12/23 13:20 Pulse Ox 96 12/12/23 13:20 Oxygen Delivery Method Room Air 12/12/23 13:20 BMI result Body Mass Index 39.1 Tobacco/Smoking Status: Tobacco use Status Tobacco use date assessed 12/12/23 12/12/23 13:25 Patient Tobacco Use Status Former Tobacco user 12/12/23 13:22 Tobacco use type Cigarette 12/12/23 13:22 e-Cigarette/Vaping Use Never Used 12/12/23 13:22 Thrive Assessment: Date of Thrive Assessment Date Thrive assessed 07/10/23 12/12/23 13:22 Const General: no acute distress Orientation/consciousness: patient oriented x3 Eyes General: appearance normal, both eyes and all related structures Resp Effort & Inspection: normal respiratory effort and able to speak in complete sentences Auscultation: clear to auscultation bilaterally Neuro General: patient oriented x3 Psych Mental Status: mental status grossly normal Assessment and Plan Assessment & Plan (1) Obesity (BMI 30-39.9): Code(s): E66.9 - Obesity, unspecified (2) Hypertension, essential: Code(s): I10 - Essential (primary) hypertension Plan Blood pressure is controlled with atenolol 25 mg initially was taking in the morning and it was causing drowsiness Now she is taking it at night, doing much better, tolerating medication Patient is already doing some weight training and will add walking routine She has still not been able to lose any weight We talked about phentermine side effect today I will be sending 15 mg of phentermine to start once a day Patient knows that she will have to come in every 4 weeks so we can we her and if she is not able to lose at least 5 lb every month we will reconsider discontinuing the medication. Medications: New phentermine must administer 2 hours after breakfast 15 mg PO QAM 30 caps 0RF Refilled atenolol 25 mg PO DAILY 90 tabs 0RF Coding Level of Care Code Est Pt Level 3 (39718) Diagnoses Obesity (BMI 30-39.9) E66.9 Hypertension, essential I10
[2023-12-12 13:20] VITALS: BP 128/72; PULSE 79; O2SAT 96; BMI 39.1
== END 2023-12-12 15:38 | disposition home or self-care (01) ==
PROVIDERS: PCP Internal Medicine; Visit Provider Internal Medicine
DX: I10 Essential (primary) hypertension (principal); E66.9 Obesity, unspecified; Z68.39 Body mass index [BMI] 39.0-39.9, adult
CPT/HCPCS: 99213

== ENCOUNTER 2023-12-26 09:08 | Outpatient (AMB) | payer MEDICARE, MEDICAID, SELFPAY ==
--- NOTE | 2023-12-26 09:14 | MHC.OFFVIS ---
Intake Vital Signs 12/26/23 09:16 Weight 231 lb 6 oz BP 130/74 Blood Pressure Location Lt brachial Position Sitting Pulse 76 Pulse Source Pulse Oximeter Pulse Oximetry (%) 98 Oxygen Delivery Method Room Air Intake Visit Reasons: 4m f/u for sleep - CONF w/address Intake Note: Patient presents for 4 month f/u. Allergies amlodipine Allergy (Unknown, Verified 12/26/23 09:17) unknown contact metal agent Allergy (Unknown, Verified 12/26/23 09:17) Skin breakout lisinopril [LISINOPRIL] Allergy (Unknown, Verified 12/26/23 09:17) COUGH nickel [NICKEL] Allergy (Unknown, Verified 12/26/23 09:17) HIVES HPI HPI Comments History of Present Illness Details 58 y/o female patient presents for follow up of DYLAN on CPAP. The home sleep study result was significant for moderate degree of obstructive sleep apnea, the AHI 33/hr and mild degree of central sleep apnea YEE 7.3/hr with oxygen sarmad was 76%. APAP [id number] ordered. Pt started using APAP at the end of October. The CPAP compliance and therapy response (09/25/23-12/23/23) reviewed. The usage days 46 days and the average usage hours 7 hrs 28 min. The max pressure was 14.3 and the residual AHI was 0.5/hr. Pt reports she is having better sleep routine, uses nasal pillow. She sleeps well with CPAP and wakes up refreshed. Daytime sleepiness has improved. [facility] Medical History Obesity Obstructive sleep apnea on CPAP Diabetes 1.5, managed as type 2 Anxiety, generalized Depression, major, recurrent Other specified hypothyroidism Hypertension, essential Surgical History History of ear surgery History of colonoscopy Family History Son No problems noted. Son No problems noted. Brother Colon cancer Other Adopted Social History Housing: House Alcohol intake: never Patient Tobacco Use Status: Former Tobacco user Quit Date: 2019 Tobacco use type: Cigarette Years Smoked: since age 11 e-Cigarette/Vaping Use: Never Used service: No Current occupational status: employed and disabled Cognitive needs: No Hearing needs: No Vision needs: Yes Female Reproductive History Menstrual Age of Menarche: 11 Review of Systems Const All systems reviewed & are unremarkable except as noted in HPI and below ENT Reports Normal hearing present Neuro Reports Normal hearing present Physical Exam Vital Signs: Last Vital Signs Pulse 76 12/26/23 09:16 BP 130/74 12/26/23 09:16 Pulse Ox 98 12/26/23 09:16 Oxygen Delivery Method Room Air 12/26/23 09:16 Const General: cooperative Nutritional Appearance: obese Orientation/consciousness: patient oriented x3 Limitations: no limitations Resp Effort & Inspection: normal respiratory effort and able to speak in complete sentences Neuro General: patient oriented x3, gait normal, moves all extremities and no focal motor deficits Cranial nerves: Yes Normal facial strength present, Yes Midline tongue present, Yes Symmetric palate elevation present, Yes Normal hearing present, Yes Ability to bilaterally rotate head present and Yes Ability to bilaterally elevate shoulders present Cognition (Neuro): normal cognition Gait exam (Neuro): Normal gait present Psych Appearance: grossly normal Mental Status: mental status grossly normal Speech and movement: Normal speech and movement present Attitude: cooperative Assessment & Plan Assessment & Plan (1) Daytime sleepiness: Code(s): R40.0 - Somnolence (2) Sleep apnea in adult: Comment: Moderate degree of obstructive sleep apnea and mild degree of central sleep apnea. Code(s): G47.30 - Sleep apnea, unspecified Plan Advised patient to continue to use APAP [id number] as patient experiences good clinical effects. Stressed compliance, use CPAP nightly and more than 4 hrs. Wt reduction advised. Increase daily physical activity and continue to practice good sleep hygiene. Coding Level of Care Code Est Pt Level 3 (00404) Diagnoses Daytime sleepiness R40.0 Sleep apnea in adult G47.30
[2023-12-26 09:16] VITALS: BP 130/74; PULSE 76; O2SAT 98
== END 2023-12-26 09:41 | disposition home or self-care (01) ==
LOC: HO.HSMC 09:09
PROVIDERS: PCP Internal Medicine; Visit Provider Nurse Practitioner Family
DX: R40.0 Somnolence (principal); G47.30 Sleep apnea, unspecified
CPT/HCPCS: 99213

== ENCOUNTER → 2023-12-26 09:08 | Outpatient (BNVA) | payer MEDICARE, MEDICAID, SELFPAY | PROVIDERS: PCP Internal Medicine; Visit Provider Nurse Practitioner Family | DX: R40.0 Somnolence (principal); G47.30 Sleep apnea, unspecified | CPT/HCPCS: 99212 ==

== ENCOUNTER 2024-01-11 14:45 | Outpatient (AMB) | payer MEDICARE, MEDICAID, SELFPAY ==
[2024-01-11 14:50] VITALS: BP 124/76; PULSE 104; O2SAT 98; BMI 37.5
--- NOTE | 2024-01-11 14:50 | MHC.PC.OV ---
Vital Signs 01/11/24 14:50 Height 5 ft 5 in Weight 225 lb 8 oz BMI 37.5 BP 124/76 Blood Pressure Location Rt brachial Position Sitting Pulse 104 H Pulse Source Pulse Oximeter Pulse Oximetry (%) 98 Oxygen Delivery Method Room Air Intake Visit Reasons: Weight check Allergies amlodipine Allergy (Unknown, Verified 01/11/24 14:52) unknown contact metal agent Allergy (Unknown, Verified 01/11/24 14:52) Skin breakout lisinopril [LISINOPRIL] Allergy (Unknown, Verified 01/11/24 14:52) COUGH nickel [NICKEL] Allergy (Unknown, Verified 01/11/24 14:52) HIVES Medication List - Last Reconciled 01/11/24 by Tony Wilson MD atenolol 25 mg PO DAILY bupropion HCl mg PO ezetimibe 10 mg PO DAILY 90 days fenofibrate 160 mg PO DAILY 90 days fluoxetine mg PO irbesartan-hydrochlorothiazide 300-12.5 mg 1 tab PO DAILY 90 days levothyroxine 75 mcg PO DAILY 90 days metformin 500 mg PO ONCE 90 days phentermine 15 mg PO QAM Tobacco use date assessed: 01/11/24 Dental Screening Dental Screen Date: 01/11/24 Did you have a dental visit in the last 12 months?: Yes Did you have a dental problem in the last 6 months where you did not have access to dental care?: No Was dental information given to patient?: Patient has dentist HPI Weight check HPI Details Patient came in today weight loss appointment She is taking phentermine 15 mg, patient is tolerating medication no side effects She was able to lose 10 lb over 1 month. However insurance company is not covering the medication and it is 50 dollar [id number] She is requesting if we can help with the coverage Patient will have pharmacy send us the paperwork for prior authorization I have increase the dose to 37.5 mg of phentermine Patient is to continue with diet-controlled and exercise as well Follow-up 4 weeks [facility] Medical History Obesity Obstructive sleep apnea on CPAP Diabetes 1.5, managed as type 2 Anxiety, generalized Depression, major, recurrent Other specified hypothyroidism Hypertension, essential Surgical History History of ear surgery History of colonoscopy Family History Son No problems noted. Son No problems noted. Brother Colon cancer Other Adopted Social History Housing: House Alcohol intake: never Patient Tobacco Use Status: Former Tobacco user Quit Date: 2019 Tobacco use type: Cigarette Years Smoked: since age 11 e-Cigarette/Vaping Use: Never Used service: No Current occupational status: employed and disabled Cognitive needs: No Hearing needs: No Vision needs: Yes Female Reproductive History Menstrual Age of Menarche: 11 Questionnaire Thrive Questionnaire Date Thrive assessed: 07/10/23 AUDIT C Alcohol Use Questionnaire (AUDIT-C) 1. How often do you have a drink containing alcohol?: Never 3. How often do you have six or more drinks on one occasion?: Never Total Score: 0 Score Reviewed/Action Taken: Yes V[place]GIN[place]-7 AMB Questionnaire VIRGINIA-7 Date VIRGINIA - 7 assessed: 07/10/23 Source: Developed by Drs. Ezra Valdez, Miley Kulkarni, Jovanny Lainez and colleagues, with an educational keny from [employer]. Review of Systems Const Denies chills and Denies fever(s) ENT Denies epistaxis and Denies nasal discharge Card Denies chest pain Resp Denies chest congestion, Denies cough and Denies hemoptysis GI Denies diarrhea and Denies nausea Skin/Breast Denies rash Neuro Reports no additional complaints Psych Reports no additional complaints Endo Reports no additional complaints Physical exam (Primary Care) Vital Signs: Last Vital Signs Pulse 104 H 01/11/24 14:50 BP 124/76 01/11/24 14:50 Pulse Ox 98 01/11/24 14:50 Oxygen Delivery Method Room Air 01/11/24 14:50 BMI result Body Mass Index 37.5 Tobacco/Smoking Status: Tobacco use Status Tobacco use date assessed 01/11/24 01/11/24 14:53 Patient Tobacco Use Status Former Tobacco user 01/11/24 14:53 Tobacco use type Cigarette 01/11/24 14:53 e-Cigarette/Vaping Use Never Used 01/11/24 14:53 Thrive Assessment: Date of Thrive Assessment Date Thrive assessed 07/10/23 01/11/24 14:53 Const General: cooperative, comfortable and no acute distress Orientation/consciousness: patient oriented x3 HENMT Head: Yes normocephalic Eyes General: appearance normal, both eyes and all related structures Neck Neck: Yes supple Resp Effort & Inspection: normal respiratory effort, no cough and no stridor Cardio Rhythm: regular rhythm Heart sounds: S1 normal heart sound present and S2 normal heart sound present Skin General skin exam: turgor normal Neuro General: patient oriented x3, tone normal and moves all extremities Extrem Right lower extremity: no edema Left lower extremity: no edema Assessment and Plan Assessment & Plan (1) Obesity due to excess calories: Code(s): E66.09 - Other obesity due to excess calories Qualifiers: Obesity classification: adult class 2 (BMI 35 - 39.9) Serious obesity comorbidity presence: with serious comorbidity Body mass index: BMI 37.0-37.9 Qualified Code(s): E66.01 - Morbid (severe) obesity due to excess calories; Z68.37 - Body mass index [BMI] 37.0-37.9, adult Plan Patient came in today weight loss appointment She is taking phentermine 15 mg, patient is tolerating medication no side effects She was able to lose 10 lb over 1 month. However insurance company is not covering the medication and it is 50 dollar [id number] She is requesting if we can help with the coverage Patient will have pharmacy send us the paperwork for prior authorization I have increase the dose to 37.5 mg of phentermine Patient is to continue with diet-controlled and exercise as well Follow-up 4 weeks Medications: Changed From phentermine must administer 2 hours after breakfast 15 mg PO QAM 30 caps 0RF To phentermine must administer 2 hours after breakfast 37.5 mg PO QAM 30 caps 0RF 30 days Refilled levothyroxine 75 mcg PO DAILY 90 tabs 1RF 90 days Coding Level of Care Code Est Pt Level 3 (16199) Diagnoses Class 2 severe obesity due to excess calories with serious comorbidity and body mass index (BMI) of 37.0 to 37.9 in adult E66.01; Z68.37 Obesity classification: adult class 2 (BMI 35 - 39.9) Serious obesity comorbidity presence: with serious comorbidity Body mass index: BMI 37.0-37.9
== END 2024-01-11 15:25 | disposition home or self-care (01) ==
LOC: HO.HMGC 14:45
PROVIDERS: PCP Internal Medicine; Visit Provider Internal Medicine
DX: E66.01 Morbid (severe) obesity due to excess calories (principal); Z68.37 Body mass index [BMI] 37.0-37.9, adult
CPT/HCPCS: 99213

== ENCOUNTER 2024-02-08 15:06 | Outpatient (AMB) | payer MEDICARE, MEDICAID, SELFPAY ==
[2024-02-08 15:07] VITALS: BP 140/70; PULSE 95; O2SAT 93; BMI 36.7
--- NOTE | 2024-02-08 15:07 | MHC.PC.OV ---
Vital Signs 02/08/24 15:07 Height 5 ft 5 in Weight 220 lb 6 oz BMI 36.7 BP 140/70 H Blood Pressure Location Lt brachial Position Sitting Pulse 95 Pulse Source Pulse Oximeter Pulse Oximetry (%) 93 Oxygen Delivery Method Room Air Intake Visit Reasons: Weight check Allergies amlodipine Allergy (Unknown, Verified 02/08/24 15:17) unknown contact metal agent Allergy (Unknown, Verified 02/08/24 15:17) Skin breakout lisinopril [LISINOPRIL] Allergy (Unknown, Verified 02/08/24 15:17) COUGH nickel [NICKEL] Allergy (Unknown, Verified 02/08/24 15:17) HIVES Medication List - Last Reconciled 02/08/24 by Tony Wilson MD atenolol 25 mg PO DAILY bupropion HCl XL mg PO ezetimibe 10 mg PO DAILY 90 days fenofibrate 160 mg PO DAILY 90 days fluoxetine mg PO irbesartan-hydrochlorothiazide 300-12.5 mg 1 tab PO DAILY 90 days levothyroxine 75 mcg PO DAILY 90 days metformin 500 mg PO ONCE 90 days phentermine 37.5 mg PO QAM 30 days Tobacco use date assessed: 02/08/24 Dental Screening Dental Screen Date: 02/08/24 Did you have a dental visit in the last 12 months?: Yes Did you have a dental problem in the last 6 months where you did not have access to dental care?: No Was dental information given to patient?: Patient has dentist HPI Weight check HPI Details Patient is a 58-year-old female came in today for weight management visit Patient is on phentermine 37.5 mg, she is tolerating medication no side effects It was started end of November patient has managed to lose 15 lb since. Medication sent for another month Patient will return in 4 weeks for follow-up [facility] Medical History Obesity Obstructive sleep apnea on CPAP Diabetes 1.5, managed as type 2 Anxiety, generalized Depression, major, recurrent Other specified hypothyroidism Hypertension, essential Surgical History History of ear surgery History of colonoscopy Family History Son No problems noted. Son No problems noted. Brother Colon cancer Other Adopted Social History Housing: House Alcohol intake: never Patient Tobacco Use Status: Former Tobacco user Quit Date: 2019 Tobacco use type: Cigarette Years Smoked: since age 11 e-Cigarette/Vaping Use: Never Used service: No Current occupational status: employed and disabled Cognitive needs: No Hearing needs: No Vision needs: Yes Female Reproductive History Menstrual Age of Menarche: 11 Questionnaire PHQ-9 Over the last 2 weeks, how often have you been bothered by any of the following problems? 1. Little interest or pleasure in doing things: more than half the days 2. Feeling down, depressed, or hopeless: more than half the days 3. Trouble falling or staying asleep, or sleeping too much: several days 4. Feeling tired or having little energy: more than half the days 5. Poor appetite or overeating: several days 6. Feeling bad about yourself - or that you are a failure or have let yourself or your family down: several days 7. Trouble concentrating on things, such as reading the newspaper or watching television: several days 8. Moving or speaking so slowly that other people could have noticed. Or the opposite - being so fidgety or restless that you have been moving around a lot more than usual: several days 9. Thoughts that you would be better off or of hurting yourself in some way: not at all Total score: 11 Depression Screening Interpretation: Positive Depression Screening Follow-up: Existing condition and In treatment Depression Screening Done: Yes 53710 - PHQ-9 Billing: Yes Source: Developed by Drs. Ezra Valdez, Miley Kulkarni, Jovanny Lainez and colleagues, with an educational keny from [employer]. Thrive Questionnaire Date Thrive assessed: 02/08/24 I am a: Patient What is your living situation today?: I have a steady place to live Within the past 12 months, did the food you bought not last and you didn't have the money to get more?: Never true Within the past 12 months, did you worry whether your food would run out before you got money to buy more?: Never true Do you have trouble paying for medicines?: No Do you have trouble getting transportation to medical appointments?: No Do you have trouble paying your heating and electricity bill?: No Do you have trouble taking care of your child, family member or friend?: No Do you have trouble with day-to-day activities such as bathing, preparing meals, shopping, managing finances, etc.?: No Are you currently unemployed and looking for a job?: No Are you interested in more education?: No Please select the resources that you would like help with: None Currently or been in a relationship where the following occur: no concerns reported THRIVE Score: 0 AUDIT C Alcohol Use Questionnaire (AUDIT-C) 1. How often do you have a drink containing alcohol?: Never 3. How often do you have six or more drinks on one occasion?: Never Total Score: 0 Score Reviewed/Action Taken: Yes VIRGINIA-7 AMB Questionnaire VIRGINIA-7 Date VIRGINIA - 7 assessed: 02/08/24 Feeling nervous, anxious, or on edge: 0 = Not at all Not being able to stop or control worryin = Not at all Worrying too much about different things: 0 = Not at all Trouble relaxin = Not at all Being so restless that it is hard to sit still: 0 = Not at all Becoming easily annoyed or irritable: 1 = Several days Feeling afraid as if something awful might happen: 0 = Not at all Total V[place]-7 score (0-4 normal; 5-9 mild; 10-14 moderate; 15-21 severe): 1 Source: Developed by Drs. Ezra Valdez, Miley Kulkarni, Jovanny Lainez and colleagues, with an educational keny from [employer]. VIRGINIA-7 Assessment Billing VIRGINIA-7 Assessment Tool: V[place]GIN[place]-7 Assessment 59054 Review of Systems Const Denies chills and Denies fever(s) ENT Denies epistaxis and Denies nasal discharge Card Denies chest pain Resp Denies chest congestion, Denies cough and Denies hemoptysis GI Denies diarrhea and Denies nausea Skin/Breast Denies rash Neuro Reports no additional complaints Psych Reports no additional complaints Endo Reports no additional complaints Physical exam (Primary Care) Vital Signs: Last Vital Signs Pulse 95 02/08/24 15:07 BP 140/70 H 02/08/24 15:07 Pulse Ox 93 02/08/24 15:07 Oxygen Delivery Method Room Air 02/08/24 15:07 BMI result Body Mass Index 36.7 Tobacco/Smoking Status: Tobacco use Status Tobacco use date assessed 02/08/24 02/08/24 15:09 Patient Tobacco Use Status Former Tobacco user 02/08/24 15:07 Tobacco use type Cigarette 02/08/24 15:07 e-Cigarette/Vaping Use Never Used 02/08/24 15:07 PHQ-9: PHQ-9 Score PHQ-9: Total score 11 02/08/24 15:17 Depression Screening Interpretation: Positive Depression Screening Follow-up: Existing condition and In treatment Thrive Assessment: Date of Thrive Assessment Date Thrive assessed 02/08/24 02/08/24 15:09 Currently or been in a relationship where the following occur: no concerns reported Const General: cooperative, comfortable and no acute distress Orientation/consciousness: patient oriented x3 HENMT Head: Yes normocephalic Eyes General: appearance normal, both eyes and all related structures Neck Neck: Yes supple Resp Effort & Inspection: normal respiratory effort, no cough and no stridor Cardio Rhythm: regular rhythm Heart sounds: S1 normal heart sound present and S2 normal heart sound present Skin General skin exam: turgor normal Neuro General: patient oriented x3, tone normal and moves all extremities Extrem Right lower extremity: no edema Left lower extremity: no edema Assessment and Plan Assessment & Plan (1) Obesity due to excess calories: Code(s): E66.09 - Other obesity due to excess calories Qualifiers: Obesity classification: adult class 2 (BMI 35 - 39.9) Serious obesity comorbidity presence: with serious comorbidity Body mass index: BMI 37.0-37.9 Qualified Code(s): E66.01 - Morbid (severe) obesity due to excess calories; Z68.37 - Body mass index [BMI] 37.0-37.9, adult Plan Patient is a 58-year-old female came in today for weight management visit Patient is on phentermine 37.5 mg, she is tolerating medication no side effects It was started end of November patient has managed to lose 15 lb since. Medication sent for another month Patient will return in 4 weeks for follow-up Medications: Refilled phentermine must administer 2 hours after breakfast 37.5 mg PO QAM 30 days 30 caps 0RF Coding Level of Care Code Est Pt Level 3 (89919) Diagnoses Class 2 severe obesity due to excess calories with serious comorbidity and body mass index (BMI) of 37.0 to 37.9 in adult E66.01; Z68.37 Obesity classification: adult class 2 (BMI 35 - 39.9) Serious obesity comorbidity presence: with serious comorbidity Body mass index: BMI 37.0-37.9 Additional Codes VIRGINIA-7 Assessment Billing - VIRGINIA-7 Assessment Tool: VIRGINIA-7 Assessment [id number] ([id number])
== END 2024-02-08 15:30 | disposition home or self-care (01) ==
PROVIDERS: PCP Internal Medicine; Visit Provider Internal Medicine
DX: E66.01 Morbid (severe) obesity due to excess calories (principal); Z68.37 Body mass index [BMI] 37.0-37.9, adult
CPT/HCPCS: 99213

== ENCOUNTER 2024-03-14 15:47 | Outpatient (AMB) | payer MEDICARE, MEDICAID, SELFPAY ==
[2024-03-14 15:56] VITALS: BP 134/72; PULSE 85; O2SAT 98; BMI 37.3
--- NOTE | 2024-03-14 15:56 | A.OFFPC_ITS ---
Vital Signs 03/14/24 15:56 Height 5 ft 5 in Weight 224 lb 2 oz BMI 37.3 BP 134/72 Blood Pressure Location Rt brachial Position Sitting Pulse 85 Pulse Source Pulse Oximeter Pulse Oximetry (%) 98 Oxygen Delivery Method Room Air Intake Visit Reasons: 8 month fu Allergies amlodipine Allergy (Unknown, Verified 03/14/24 15:57) unknown contact metal agent Allergy (Unknown, Verified 03/14/24 15:57) Skin breakout lisinopril [LISINOPRIL] Allergy (Unknown, Verified 03/14/24 15:57) COUGH nickel [NICKEL] Allergy (Unknown, Verified 03/14/24 15:57) HIVES Medication List - Last Reconciled 03/14/24 by Tony Wilson MD atenolol 25 mg PO DAILY bupropion HCl XL mg PO ezetimibe 10 mg PO DAILY 90 days fenofibrate 160 mg PO DAILY 90 days fluoxetine mg PO irbesartan-hydrochlorothiazide 300-12.5 mg 1 tab PO DAILY 90 days levothyroxine 75 mcg PO DAILY 90 days metformin 500 mg PO ONCE 90 days phentermine 37.5 mg PO QAM 30 days Tobacco use date assessed: 03/14/24 Dental Screening Dental Screen Date: 03/14/24 Did you have a dental visit in the last 12 months?: Yes Did you have a dental problem in the last 6 months where you did not have access to dental care?: No Was dental information given to patient?: Patient has dentist HPI 8 month fu HPI Details Patient is a 58-year-old female came in today for weight management visit Patient is on phentermine 37.5 mg, she is tolerating medication no side effects It was started end of November patient has managed to lose 15 lb since. Lost 1 1 patient gained 4 lb She says that her kitchen was ran away taken she was not able to cook herself so she has been eating from outside She is asking for another month of medication Patient start cooking again. I have sent phentermine 37.5 mg along with new medication Topamax 25 mg As they work better together [facility] Medical History Obesity Obstructive sleep apnea on CPAP Diabetes 1.5, managed as type 2 Anxiety, generalized Depression, major, recurrent Other specified hypothyroidism Hypertension, essential Surgical History History of ear surgery History of colonoscopy Family History Son No problems noted. Son No problems noted. Brother Colon cancer Other Adopted Social History Housing: House Alcohol intake: never Patient Tobacco Use Status: Former Tobacco user Tobacco use type: Cigarette Years Smoked: since age 11 e-Cigarette/Vaping Use: Never Used service: No Current occupational status: employed and disabled Cognitive needs: No Hearing needs: No Vision needs: Yes Female Reproductive History Menstrual Age of Menarche: 11 Questionnaire Thrive Questionnaire Date Thrive assessed: 02/08/24 AUDIT C Alcohol Use Questionnaire (AUDIT-C) 1. How often do you have a drink containing alcohol?: Never 3. How often do you have six or more drinks on one occasion?: Never Total Score: 0 Score Reviewed/Action Taken: Yes VIRGINIA-7 AMB Questionnaire VIRGINIA-7 Date VIRGINIA - 7 assessed: 02/08/24 Source: Developed by Drs. Ezra Valdez, Miley Kulkarni, Jovanny Lainez and colleagues, with an educational keny from [employer]. Review of Systems Const Denies chills and Denies fever(s) ENT Denies epistaxis and Denies nasal discharge Card Denies chest pain Resp Denies chest congestion, Denies cough and Denies hemoptysis GI Denies diarrhea and Denies nausea Skin/Breast Denies rash Neuro Reports no additional complaints Psych Reports no additional complaints Endo Reports no additional complaints Physical exam (Primary Care) Vital Signs: Last Vital Signs Pulse 85 03/14/24 15:56 Pulse Ox 98 03/14/24 15:56 Oxygen Delivery Method Room Air 03/14/24 15:56 BMI result Body Mass Index 37.3 Tobacco/Smoking Status: Tobacco use Status Tobacco use date assessed 02/08/24 02/08/24 15:09 Patient Tobacco Use Status Former Tobacco user 02/08/24 15:07 Tobacco use type Cigarette 02/08/24 15:07 e-Cigarette/Vaping Use Never Used 02/08/24 15:07 Thrive Assessment: Date of Thrive Assessment Date Thrive assessed 02/08/24 02/08/24 15:09 Const General: cooperative, comfortable and no acute distress Orientation/consciousness: patient oriented x3 HENMT Head: Yes normocephalic Eyes General: appearance normal, both eyes and all related structures Neck Neck: Yes supple Resp Effort & Inspection: normal respiratory effort, no cough and no stridor Cardio Rhythm: regular rhythm Heart sounds: S1 normal heart sound present and S2 normal heart sound present Skin General skin exam: turgor normal Neuro General: patient oriented x3, tone normal and moves all extremities Extrem Right lower extremity: no edema Left lower extremity: no edema Assessment and Plan Assessment & Plan (1) Obesity due to excess calories: Code(s): E66.09 - Other obesity due to excess calories Qualifiers: Obesity classification: adult class 2 (BMI 35 - 39.9) Serious obesity comorbidity presence: with serious comorbidity Body mass index: BMI 37.0-37.9 Qualified Code(s): E66.01 - Morbid (severe) obesity due to excess calories; Z68.37 - Body mass index [BMI] 37.0-37.9, adult Plan Patient is a 58-year-old female came in today for weight management visit Patient is on phentermine 37.5 mg, she is tolerating medication no side effects It was started end of November patient has managed to lose 15 lb since. Lost 1 1 patient gained 4 lb She says that her kitchen was ran away taken she was not able to cook herself so she has been eating from outside She is asking for another month of medication Patient start cooking again. I have sent phentermine 37.5 mg along with new medication Topamax 25 mg As they work better together Medications: New topiramate (Topamax) 25 mg PO DAILY 30 tabs 0RF Refilled levothyroxine 75 mcg PO DAILY 90 days 90 tabs 1RF fenofibrate 160 mg PO DAILY 90 days 90 tabs 0RF ezetimibe 10 mg PO DAILY 90 days 90 tabs 0RF atenolol 25 mg PO DAILY 90 tabs 0RF phentermine must administer 2 hours after breakfast 37.5 mg PO QAM 30 days 30 caps 0RF metformin 500 mg PO ONCE 90 days 90 tabs 0RF irbesartan-hydrochlorothiazide 300-12.5 mg 1 tab PO DAILY 90 days 90 tabs 0RF Coding Level of Care Code Est Pt Level 3 (74411) Diagnoses Class 2 severe obesity due to excess calories with serious comorbidity and body mass index (BMI) of 37.0 to 37.9 in adult E66.01; Z68.37 Obesity classification: adult class 2 (BMI 35 - 39.9) Serious obesity comorbidity presence: with serious comorbidity Body mass index: BMI 37.0-37.9
== END 2024-03-14 16:33 | disposition home or self-care (01) ==
LOC: HO.HMGC 15:47
PROVIDERS: PCP Internal Medicine; Visit Provider Internal Medicine
DX: E66.01 Morbid (severe) obesity due to excess calories (principal); Z68.37 Body mass index [BMI] 37.0-37.9, adult
CPT/HCPCS: 99213

== ENCOUNTER 2024-04-09 13:40 | Outpatient (AMB) | payer MEDICARE, MEDICAID, SELFPAY ==
[2024-04-09 13:43] VITALS: BP 118/68; PULSE 78; O2SAT 98; BMI 37.5
--- NOTE | 2024-04-09 13:43 | MHC.PC.OV ---
Vital Signs 04/09/24 13:43 Height 5 ft 5 in Weight 225 lb 4 oz BMI 37.5 BP 118/68 Blood Pressure Location Rt brachial Position Sitting Pulse 78 Pulse Source Pulse Oximeter Pulse Oximetry (%) 98 Oxygen Delivery Method Room Air Intake Visit Reasons: 1 month f/u Allergies amlodipine Allergy (Unknown, Verified 04/09/24 13:43) unknown contact metal agent Allergy (Unknown, Verified 04/09/24 13:43) Skin breakout lisinopril [LISINOPRIL] Allergy (Unknown, Verified 04/09/24 13:43) COUGH nickel [NICKEL] Allergy (Unknown, Verified 04/09/24 13:43) HIVES Medication List - Last Reconciled 04/09/24 by Tony Wilson MD atenolol 25 mg PO DAILY bupropion HCl XL mg PO ezetimibe 10 mg PO DAILY 90 days fenofibrate 160 mg PO DAILY 90 days fluoxetine mg PO irbesartan-hydrochlorothiazide 300-12.5 mg 1 tab PO DAILY 90 days levothyroxine 75 mcg PO DAILY 90 days metformin 500 mg PO ONCE 90 days Tobacco use date assessed: 04/09/24 Dental Screening Dental Screen Date: 04/09/24 Did you have a dental visit in the last 12 months?: Yes Did you have a dental problem in the last 6 months where you did not have access to dental care?: No Was dental information given to patient?: Patient has dentist HPI 1 month f/u HPI Details Patient is a 58-year-old female came in today to talk about to acute problems Patient says that she was done seeing in her wearing body and her right knee gave out She has been having pain since, and feels as if she is going to fall. She is tender over lateral collateral ligament with outpatient We have provided splint to patient and we will also create a referral for to be evaluated by Orthopedic. She also have a small fibroma right arm close to elbow. Patient says that when she bends her elbow she feels as if there is some soreness. She will also Dr. Orthopedic about that. We are stopping phentermine and Topamax as patient has not been able to lose any weight on these medications since past 1 month. [facility] Medical History Obesity Obstructive sleep apnea on CPAP Diabetes 1.5, managed as type 2 Anxiety, generalized Depression, major, recurrent Other specified hypothyroidism Hypertension, essential Surgical History History of ear surgery History of colonoscopy Family History Son No problems noted. Son No problems noted. Brother Colon cancer Other Adopted Social History Housing: House Alcohol intake: never Patient Tobacco Use Status: Former Tobacco user Tobacco use type: Cigarette Years Smoked: since age 11 e-Cigarette/Vaping Use: Never Used service: No Current occupational status: employed and disabled Cognitive needs: No Hearing needs: No Vision needs: Yes Female Reproductive History Menstrual Age of Menarche: 11 Questionnaire Thrive Questionnaire Date Thrive assessed: 02/08/24 AUDIT C Alcohol Use Questionnaire (AUDIT-C) 1. How often do you have a drink containing alcohol?: Never 3. How often do you have six or more drinks on one occasion?: Never Total Score: 0 Score Reviewed/Action Taken: Yes [place]-7 AMB Questionnaire [place]-7 Date [place] - 7 assessed: 02/08/24 Source: Developed by Drs. Ezra Valdez, Miley Kulkarni, Jovanny Lainez and colleagues, with an educational keny from [employer]. Review of Systems Const Denies chills and Denies fever(s) ENT Denies epistaxis and Denies nasal discharge Card Denies chest pain Resp Denies chest congestion, Denies cough and Denies hemoptysis GI Denies diarrhea and Denies nausea Skin/Breast Denies rash Neuro Reports no additional complaints Psych Reports no additional complaints Endo Reports no additional complaints Physical exam (Primary Care) Vital Signs: Last Vital Signs Pulse 78 04/09/24 13:43 BP 118/68 04/09/24 13:43 Pulse Ox 98 04/09/24 13:43 Oxygen Delivery Method Room Air 04/09/24 13:43 BMI result Body Mass Index 37.5 Tobacco/Smoking Status: Tobacco use Status Tobacco use date assessed 04/09/24 04/09/24 13:47 Patient Tobacco Use Status Former Tobacco user 04/09/24 13:45 Tobacco use type Cigarette 04/09/24 13:45 e-Cigarette/Vaping Use Never Used 04/09/24 13:45 Thrive Assessment: Date of Thrive Assessment Date Thrive assessed 02/08/24 04/09/24 13:45 Const General: cooperative, comfortable and no acute distress Orientation/consciousness: patient oriented x3 HENMD Head: Yes normocephalic Eyes General: appearance normal, both eyes and all related structures Neck Neck: Yes supple Resp Effort & Inspection: normal respiratory effort, no cough and no stridor Cardio Rhythm: regular rhythm Heart sounds: S1 normal heart sound present and S2 normal heart sound present Skin General skin exam: turgor normal Neuro General: patient oriented x3, tone normal and moves all extremities Extrem Elbow/forearm/wrist images: 1. Tender to pressure bottom part of lateral collateral ligament, range of motion intact no pain with movement to patella, no swelling 2. [place] be size firm nodule Right lower extremity: no edema Left lower extremity: no edema Assessment and Plan Assessment & Plan (1) Right knee injury: Code(s): S89.91XA - Unspecified injury of right lower leg, initial encounter Qualifiers: Encounter type: initial encounter Qualified Code(s): S89.91XA - Unspecified injury of right lower leg, initial encounter (2) Unstable right knee: Code(s): M25.361 - Other instability, right knee (3) Pain in right elbow: Code(s): M25.521 - Pain in right elbow (4) Fibroma of upper extremity: Code(s): D21.10 - Benign neoplasm of connective and other soft tissue of unspecified upper limb, including shoulder (5) Obesity due to excess calories: Code(s): E66.09 - Other obesity due to excess calories Qualifiers: Body mass index: BMI 37.0-37.9 Obesity classification: adult class 2 (BMI 35 - 39.9) Serious obesity comorbidity presence: with serious comorbidity Qualified Code(s): E66.01 - Morbid (severe) obesity due to excess calories; Z68.37 - Body mass index [BMI] 37.0-37.9, adult Plan Patient is a 58-year-old female came in today to talk about to acute problems Patient says that she was done seeing in her wearing body and her right knee gave out She has been having pain since, and feels as if she is going to fall. She is tender over lateral collateral ligament with outpatient We have provided splint to patient and we will also create a referral for to be evaluated by Orthopedic. She also have a small fibroma right arm close to elbow. Patient says that when she bends her elbow she feels as if there is some soreness. She will also Dr. Orthopedic about that. We are stopping phentermine and Topamax as patient has not been able to lose any weight on these medications since past 1 month. Orders: Referrals Orthopedics Referral S89.91XA - Unspecified injury of right lower leg, initial encounter Medications: Discontinued topiramate (Topamax) Discontinued Reason: Doctor's Order 25 mg PO DAILY 30 tabs 0RF phentermine must administer 2 hours after breakfast Discontinued Reason: Doctor's Order 37.5 mg PO QAM 30 days 30 caps 0RF Coding Level of Care Code Est Pt Level 4 (01250) Diagnoses Injury of right knee, initial encounter S89.91XA Encounter type: initial encounter Unstable right knee M25.361 Pain in right elbow M25.521 Fibroma of upper extremity D21.10 Class 2 severe obesity due to excess calories with serious comorbidity and body mass index (BMI) of 37.0 to 37.9 in adult E66.01; Z68.37 Body mass index: BMI 37.0-37.9 Obesity classification: adult class 2 (BMI 35 - 39.9) Serious obesity comorbidity presence: with serious comorbidity
== END 2024-04-09 14:17 | disposition home or self-care (01) ==
PROVIDERS: PCP Internal Medicine; Visit Provider Internal Medicine
DX: S89.91XA Unspecified injury of right lower leg, initial encounter (principal); M25.361 Other instability, right knee; E66.01 Morbid (severe) obesity due to excess calories; Z68.37 Body mass index [BMI] 37.0-37.9, adult; M25.521 Pain in right elbow; D21.10 Benign neoplasm of connective and other soft tissue of unspecified upper limb, including shoulder
CPT/HCPCS: 99214

== ENCOUNTER 2024-05-07 09:25 | Outpatient (REF) | payer MEDICARE, MEDICAID, SELFPAY ==
--- NOTE | ~2024-05-07 | XR_ITS ---
EXAMINATION: XR KNEE, RIGHT CLINICAL INFORMATION: Pain in the right knee COMPARISON: Right knee radiographs of 04/05/2019 TECHNIQUE: Three views of the right knee. FINDINGS: Mild narrowing of the medial knee joint space with mild subarticular sclerosis. Lateral knee joint space is preserved. No evidence of subarticular cystic changes or marginal osteophytes. No soft tissue calcifications. No suprapatellar joint effusion. No evidence of acute fracture or dislocation. Normal osseous mineralization. XR/XR knee RT 3V IMPRESSION: No acute osseous abnormality. Mild narrowing of the right medial knee joint space with subarticular sclerosis.
== END 2024-05-07 09:26 | disposition home or self-care (01) ==
LOC: HO.HOSX 09:25
PROVIDERS: Visit Provider Orthopaedic Surgery
DX: M25.561 Pain in right knee (principal)
CPT/HCPCS: 73562; 99202

== ENCOUNTER 2024-05-07 12:55 | Outpatient (AMB) | payer MEDICARE, MEDICAID, SELFPAY ==
[2024-05-07 13:12] VITALS: BMI 37.4
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
== END 2024-05-07 13:27 | disposition home or self-care (01) ==
PROVIDERS: PCP Internal Medicine; Visit Provider Orthopaedic Surgery
DX: M25.561 Pain in right knee (principal)
CPT/HCPCS: 99203

== ENCOUNTER 2024-06-24 12:33 | Outpatient (AMB) | payer MEDICARE, MEDICAID, SELFPAY ==
--- NOTE | 2024-06-24 12:37 | MHC.OFFVIS ---
Vital Signs 06/24/24 12:42 Height 5 ft 5 in Weight 231 lb 6 oz BMI 38.5 BP 122/70 Blood Pressure Location Rt brachial Position Sitting Respiration 16 Pulse 82 Pulse Source Pulse Oximeter Pulse Oximetry (%) 97 Oxygen Delivery Method Room Air Intake Visit Reasons: 6m follow up - CONF Intake Note: Pt presents to the office for 6 month follow up for DYLAN. [employer] Supervisor Required: No Allergies amlodipine Allergy (Unknown, Verified 06/24/24 12:41) unknown contact metal agent Allergy (Unknown, Verified 06/24/24 12:41) Skin breakout lisinopril [LISINOPRIL] Allergy (Unknown, Verified 06/24/24 12:41) COUGH nickel [NICKEL] Allergy (Unknown, Verified 06/24/24 12:41) HIVES HPI Comments Details: 58 y/o female patient presents for follow up of DYLAN on CPAP. The home sleep study result was significant for moderate degree of obstructive sleep apnea, the AHI 33/hr and mild degree of central sleep apnea YEE 7.3/hr with oxygen sarmad was 76%. APAP [id number] ordered. Pt started using APAP at the end of October. The CPAP compliance and therapy response (03/26/24-06/23/24) reviewed. she was travelling and could not use it for few days. The usage days 78 days of 90 days and the average usage hours 7 hrs 28 min. The max pressure was 13 and the residual AHI was 0.7/hr. Pt reports she is having better sleep routine, uses nasal pillow. She sleeps well with CPAP and wakes up refreshed. Daytime sleepiness has improved. [facility] Medical History (Updated 06/24/24 @ 12:58 by Johanne Mayers MD) Obstructive sleep apnea Obesity Obstructive sleep apnea on CPAP Diabetes 1.5, managed as type 2 Anxiety, generalized Depression, major, recurrent Other specified hypothyroidism Hypertension, essential Surgical History History of ear surgery History of colonoscopy Family History Son No problems noted. Son No problems noted. Brother Colon cancer Other Adopted Social History Housing: House Alcohol intake: never Patient Tobacco Use Status: Former Tobacco user Tobacco use type: Cigarette Years Smoked: since age 11 e-Cigarette/Vaping Use: Never Used service: No Current occupational status: employed and disabled Current occupation: rt handed Cognitive needs: No Hearing needs: No Vision needs: Yes Female Reproductive History Menstrual Age of Menarche: 11 Physical Exam Vital Signs: Last Vital Signs Pulse 82 06/24/24 12:42 Resp 16 06/24/24 12:42 BP 122/70 06/24/24 12:42 Pulse Ox 97 06/24/24 12:42 Oxygen Delivery Method Room Air 06/24/24 12:42 BMI result Body Mass Index 38.5 Const General: cooperative Orientation/consciousness: patient oriented x3 Limitations: no limitations Resp Effort & Inspection: normal respiratory effort and able to speak in complete sentences Neuro General: patient oriented x3, gait normal, moves all extremities and no focal motor deficits Cognition (Neuro): normal cognition Gait exam (Neuro): Normal gait present Psych Appearance: grossly normal Mental Status: mental status grossly normal Speech and movement: Normal speech and movement present Attitude: cooperative Assessment & Plan Assessment & Plan (1) Obstructive sleep apnea: Code(s): G47.33 - Obstructive sleep apnea (adult) (pediatric) Category: Medical Plan Continue AutoPAP 5-20 cm and follow up Compliance stressed Coding Level of Care Code Est Pt Level 4 (63376) Diagnoses Obstructive sleep apnea G47.33
[2024-06-24 12:42] VITALS: BP 122/70; PULSE 82; RESP 16; O2SAT 97; BMI 38.5
== END 2024-06-24 13:06 | disposition home or self-care (01) ==
LOC: HO.HSMC 12:33
PROVIDERS: PCP Internal Medicine; Visit Provider Psychiatry & Neurology Neurology
DX: G47.33 Obstructive sleep apnea (adult) (pediatric) (principal)
CPT/HCPCS: 99214

== ENCOUNTER → 2024-06-24 12:33 | Outpatient (BNVA) | payer MEDICARE, MEDICAID, SELFPAY | PROVIDERS: PCP Internal Medicine; Visit Provider Psychiatry & Neurology Neurology | DX: G47.33 Obstructive sleep apnea (adult) (pediatric) (principal) | CPT/HCPCS: 99212 ==

== ENCOUNTER 2024-07-03 10:01 | Outpatient (REF) | payer MEDICARE, MEDICAID, SELFPAY ==
--- NOTE | ~2024-07-03 | MR_ITS ---
EXAMINATION: MR KNEE WITHOUT CONTRAST, RIGHT CLINICAL INFORMATION: Right knee pain. COMPARISON: Radiographs dated 05/07/2024. TECHNIQUE: MRI of the knee without contrast was performed using routine sequences on a high-field scanner. FINDINGS: MENISCI: Medial Meniscus: Bucket-handle tear propagates from the posterior root through the meniscal body and anterior horn with displacement of the fragment into intercondylar notch. The fragment constitutes approximately one-half of the medial meniscal tissue. There is inner margin fraying at the orthotopic meniscal tissue at the body. Lateral Meniscus: A horizontal tear of the posterior horn extends from the undersurface into the meniscal body with degenerative intrasubstance signal. There is a multilocular parameniscal cyst measuring 1.6 x 1 x 0.4 cm. LIGAMENTS: Cruciate: ACL is absent due to a chronic tear with resorption. PCL is normal. Collateral: Intact. EXTENSOR MECHANISM: Intact. ARTICULAR CARTILAGE/BONE: Patellofemoral Compartment: Tiny patellar osteophytes. Full-thickness chondral fissure is noted along the inferior aspect of the medial trochlear facet with subtle cortical irregularity and subcortical cystic change. Normal trochlear morphology. Medial Compartment: Normal. Lateral Compartment: Normal. JOINT FLUID AND BURSAE: No joint effusion or bursitis. No Ann's cyst. MR/MR knee RT wo con IMPRESSION: 1. Displaced bucket-handle tear of the medial meniscus. 2. Horizontal tear of the posterior horn and body of the lateral meniscus with a parameniscal cyst. 3. Chronic, complete ACL tear with resorption. 4. Minimal patellofemoral compartment arthrosis. Electronically signed by: Familia Cho MD 07/04/2024 01:05 PM EDT
== END 2024-07-03 10:02 | disposition home or self-care (01) ==
LOC: HO.MRI 10:01
PROVIDERS: PCP Internal Medicine; Visit Provider Orthopaedic Surgery
DX: M25.561 Pain in right knee (principal)
CPT/HCPCS: 73721

== ENCOUNTER 2024-07-22 10:35 | Outpatient (AMB) | payer MEDICARE, MEDICAID, SELFPAY ==
[2024-07-22 10:37] VITALS: BMI 38.4
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
== END 2024-07-22 11:26 | disposition home or self-care (01) ==
PROVIDERS: PCP Internal Medicine; Visit Provider Orthopaedic Surgery
DX: S83.241A Other tear of medial meniscus, current injury, right knee, initial encounter (principal)
CPT/HCPCS: 99213

== ENCOUNTER → 2024-07-22 10:35 | Outpatient (BNVA) | payer MEDICARE, MEDICAID, SELFPAY | PROVIDERS: PCP Internal Medicine; Visit Provider Orthopaedic Surgery | DX: Z00.01 Encounter for general adult medical examination with abnormal findings (principal); E13.9 Other specified diabetes mellitus without complications; I10 Essential (primary) hypertension; E03.8 Other specified hypothyroidism; E55.9 Vitamin D deficiency, unspecified; E66.9 Obesity, unspecified; L21.9 Seborrheic dermatitis, unspecified; M25.361 Other instability, right knee; G47.33 Obstructive sleep apnea (adult) (pediatric); Z79.899 Other long term (current) drug therapy; S83.241A Other tear of medial meniscus, current injury, right knee, initial encounter | CPT/HCPCS: 96127; 99212; 99396 ==

== ENCOUNTER 2024-07-22 15:30 | Outpatient (AMB) | payer MEDICARE, MEDICAID, SELFPAY ==
--- NOTE | 2024-07-22 15:31 | MHC.PC.OV ---
Vital Signs 07/22/24 15:32 Height 5 ft 5 in Weight 229 lb 8 oz BMI 38.2 BP 118/70 Blood Pressure Location Lt brachial Position Sitting Pulse 89 Pulse Source Pulse Oximeter Pulse Oximetry (%) 95 Oxygen Delivery Method Room Air Intake Visit Reasons: Annual PE Allergies amlodipine Allergy (Unknown, Verified 07/22/24 15:32) unknown contact metal agent Allergy (Unknown, Verified 07/22/24 15:32) Skin breakout lisinopril [LISINOPRIL] Allergy (Unknown, Verified 07/22/24 15:32) COUGH nickel [NICKEL] Allergy (Unknown, Verified 07/22/24 15:32) HIVES Medication List - Last Reconciled 07/22/24 by Tony Wilson MD atenolol 25 mg PO DAILY bupropion HCl XL mg PO ezetimibe 10 mg PO DAILY 90 days fenofibrate 160 mg PO DAILY 90 days fluoxetine mg PO irbesartan-hydrochlorothiazide 300-12.5 mg 1 tab PO DAILY 90 days levothyroxine 75 mcg PO DAILY 90 days metformin 500 mg PO ONCE 90 days Tobacco use date assessed: 07/22/24 Dental Screening Dental Screen Date: 07/22/24 Did you have a dental visit in the last 12 months?: Yes Did you have a dental problem in the last 6 months where you did not have access to dental care?: No Was dental information given to patient?: Patient has dentist HPI Annual PE HPI Details Patient is a 58-year-old female came in today for physical examination Blood pressure is well-controlled Due for labs, order placed Mammogram was October this year OBGYN visit was October this Colonoscopy will be in 2027 Patient is struggling with her weight Medication list reviewed Follow-up 4 months [facility] Medical History Obstructive sleep apnea Obesity Obstructive sleep apnea on CPAP Diabetes 1.5, managed as type 2 Anxiety, generalized Depression, major, recurrent Other specified hypothyroidism Hypertension, essential Surgical History History of ear surgery History of colonoscopy Family History Son No problems noted. Son No problems noted. Brother Colon cancer Other Adopted Social History Housing: House Alcohol intake: never Patient Tobacco Use Status: Former Tobacco user Tobacco use type: Cigarette Years Smoked: since age 11 e-Cigarette/Vaping Use: Never Used service: No Current occupational status: employed and disabled Current occupation: rt handed Cognitive needs: No Hearing needs: No Vision needs: Yes Female Reproductive History Menstrual Age of Menarche: 11 Questionnaire Thrive Questionnaire Date Thrive assessed: 07/22/24 I am a: Patient What is your living situation today?: I have a steady place to live Within the past 12 months, did the food you bought not last and you didn't have the money to get more?: Never true Within the past 12 months, did you worry whether your food would run out before you got money to buy more?: Never true Do you have trouble paying for medicines?: I choose not to answer this question Do you have trouble getting transportation to medical appointments?: I choose not to answer this question Do you have trouble paying your heating and electricity bill?: I choose not to answer this question Do you have trouble taking care of your child, family member or friend?: I choose not to answer this question Do you have trouble with day-to-day activities such as bathing, preparing meals, shopping, managing finances, etc.?: I choose not to answer this question Are you interested in more education?: I choose not to answer this question Please select the resources that you would like help with: Transportation Currently or been in a relationship where the following occur: I choose not to answer THRIVE Score: 0 AUDIT C Alcohol Use Questionnaire (AUDIT-C) 1. How often do you have a drink containing alcohol?: Never 3. How often do you have six or more drinks on one occasion?: Never Total Score: 0 Score Reviewed/Action Taken: Yes VIRGINIA-7 AMB Questionnaire VIRGINIA-7 Date VIRGINIA - 7 assessed: 07/22/24 Feeling nervous, anxious, or on edge: 0 = Not at all Not being able to stop or control worryin = Not at all Worrying too much about different things: 0 = Not at all Trouble relaxin = Not at all Being so restless that it is hard to sit still: 0 = Not at all Becoming easily annoyed or irritable: 0 = Not at all Feeling afraid as if something awful might happen: 0 = Not at all Total V[place]GINIA-7 score (0-4 normal; 5-9 mild; 10-14 moderate; 15-21 severe): 0 Source: Developed by Drs. Ezra Valdez, Miley Kulkarni, Jovanny Lainez and colleagues, with an educational keny from [employer]. VIRGINIA-7 Assessment Billing VIRGINIA-7 Assessment Tool: VIRGINIA-7 Assessment 57783 Review of Systems Const Denies chills, Denies fever(s) and Denies headache(s) Eyes Denies blurry vision ENT Denies headache(s), Denies nasal discharge, Denies nasal obstruction, Denies odynophagia and Denies sinus pain Card Denies chest pain at rest and Denies chest pain with activity Resp Denies cough and Denies hemoptysis GI Denies diarrhea, Denies odynophagia, Denies vomiting and Denies hematemesis Reports as per HPI Musc Denies abnormal gait Skin/Breast Reports as per HPI Neuro Denies Neuro-related abnormal movements, Denies Abnormal speech present, Denies abnormal gait, Denies headache(s) and Denies Sensory deficit (Neuro) Psych Denies mood swings and Denies paranoia Endo Reports as per HPI Khadar/Lymph Reports as per HPI Aller/Immun Reports as per HPI Physical exam (Primary Care) Vital Signs: Last Vital Signs Pulse 89 07/22/24 15:32 BP 118/70 07/22/24 15:32 Pulse Ox 95 07/22/24 15:32 Oxygen Delivery Method Room Air 07/22/24 15:32 BMI result Body Mass Index 38.2 Tobacco/Smoking Status: Tobacco use Status Tobacco use date assessed 07/22/24 07/22/24 15:34 Patient Tobacco Use Status Former Tobacco user 07/22/24 15:34 Tobacco use type Cigarette 07/22/24 15:34 e-Cigarette/Vaping Use Never Used 07/22/24 15:34 Thrive Assessment: Date of Thrive Assessment Date Thrive assessed 07/22/24 07/22/24 15:37 Currently or been in a relationship where the following occur: I choose not to answer Const General: cooperative, comfortable and no acute distress Orientation/consciousness: patient oriented x3 HENMT Head: Yes normocephalic and Yes atraumatic Eyes General: appearance normal, both eyes and all related structures Pupils: Equal, round and reactive pupils present EOM: EOMs intact bilaterally Neck Neck: Yes supple and No lymphadenopathy Thyroid: Thyroid normal Lymphatic: no lymphadenopathy noted Resp Effort & Inspection: normal respiratory effort and able to speak in complete sentences Auscultation: clear to auscultation bilaterally Cardio Heart sounds: S1 normal heart sound present and S2 normal heart sound present GI Palpation (GI): Soft to palpation and nontender Auscultation: normal bowel sounds General: Yes no CVA tenderness Back/Spine/Pelvis Back: no CVA tenderness Skin General skin exam: elasticity normal and turgor normal Neuro General: patient oriented x3 and gait normal Cranial nerves: Yes Equal, round and reactive pupils present Speech: No Abnormal speech present Sensory Exam: No Sensory deficit (Neuro) Coordination: tandem gait normal and Romberg test negative Extrem General: Yes normal exam except as noted and No edema Coding Level of Care Code Est Pt Level 3 (33245) Est Pt Prev Care 40-64y(49186) Diagnoses Encounter for general adult medical examination with abnormal findings Z00. Diabetes 1.5, managed as type 2 E13.9 Hypertension, essential I10 Other specified hypothyroidism E03.8 Vitamin D deficiency E55.9 Obesity (BMI 30-39.9) E66.9 Seborrheic dermatitis of scalp L21.9 Unstable right knee M25.361 Tear of medial meniscus of right knee, current, unspecified tear type, sequela S83.241S Encounter type: sequela Meniscus tear of knee type: unspecified type Tear current or old: current Obstructive sleep apnea G47.33 Additional Codes VIRGINIA-7 Assessment Billing - VIRGINIA-7 Assessment Tool: VIRGINIA-7 Assessment 90871 ([id number]) Assessment & Plan Assessment & Plan (1) Encounter for general adult medical examination with abnormal findings: Code(s): Z00.01 - Encounter for general adult medical examination with abnormal findings Category: Medical (2) Diabetes 1.5, managed as type 2: Code(s): E13.9 - Other specified diabetes mellitus without complications Category: Medical (3) Hypertension, essential: Code(s): I10 - Essential (primary) hypertension Category: Medical (4) Other specified hypothyroidism: Code(s): E03.8 - Other specified hypothyroidism Category: Medical (5) Vitamin D deficiency: Code(s): E55.9 - Vitamin D deficiency, unspecified Category: Medical (6) Obesity (BMI 30-39.9): Code(s): E66.9 - Obesity, unspecified Category: Medical (7) Seborrheic dermatitis of scalp: Code(s): L21.9 - Seborrheic dermatitis, unspecified Category: Medical (8) Unstable right knee: Code(s): M25.361 - Other instability, right knee Category: Medical (9) Tear of medial meniscus of right knee: Code(s): S83.241A - Other tear of medial meniscus, current injury, right knee, initial encounter Category: Medical Qualifiers: Encounter type: sequela Meniscus tear of knee type: unspecified type Tear current or old: current Qualified Code(s): S83.241S - Other tear of medial meniscus, current injury, right knee, sequela (10) Obstructive sleep apnea: Code(s): G47.33 - Obstructive sleep apnea (adult) (pediatric) Category: Medical Plan Patient is a 58-year-old female came in today for physical examination Blood pressure is well-controlled Due for labs, order placed Mammogram was October of this year OBGYN visit was October this year Colonoscopy will be in 2027 Continued to have seborrheic dermatitis Never booked appointment with the 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 Requesting script for shampoo to be sent, which I did Patient have developed meniscal tear right knee She saw orthopedic [facility] and had MRI done However the tear is small and no intervention is needed Patient is doing some weight exercises to build up her bones I would recommend to put on knee splint before exercises to stabilize it Depression is stable Continue levothyroxine continue metformin Patient is struggling with her weight Medication list reviewed Follow-up 4 months Orders: Orders Hemoglobin A1c Today E03.8 - Other specified hypothyroidism, E13.9 - Other specified diabetes mellitus without complications, E55.9 - Vitamin D deficiency, unspecified, E66.9 - Obesity, unspecified, G47.33 - Obstructive sleep apnea (adult) (pediatric), I10 - Essential (primary) hypertension, L21.9 - Seborrheic dermatitis, unspecified, M25.361 - Other instability, right knee, S83.241A - Other tear of medial meniscus, current injury, right knee, initial encounter, Z00.01 - Encounter for general adult medical examination with abnormal findings LDL Cholesterol Direct Today E03.8 - Other specified hypothyroidism, E13.9 - Other specified diabetes mellitus without complications, E55.9 - Vitamin D deficiency, unspecified, E66.9 - Obesity, unspecified, G47.33 - Obstructive sleep apnea (adult) (pediatric), I10 - Essential (primary) hypertension, L21.9 - Seborrheic dermatitis, unspecified, M25.361 - Other instability, right knee, S83.241A - Other tear of medial meniscus, current injury, right knee, initial encounter, Z00.01 - Encounter for general adult medical examination with abnormal findings TSH reflex Free T4 Today E03.8 - Other specified hypothyroidism, E13.9 - Other specified diabetes mellitus without complications, E55.9 - Vitamin D deficiency, unspecified, E66.9 - Obesity, unspecified, G47.33 - Obstructive sleep apnea (adult) (pediatric), I10 - Essential (primary) hypertension, L21.9 - Seborrheic dermatitis, unspecified, M25.361 - Other instability, right knee, S83.241A - Other tear of medial meniscus, current injury, right knee, initial encounter, Z00.01 - Encounter for general adult medical examination with abnormal findings Microalbumin, Random (w Creat) Today E03.8 - Other specified hypothyroidism, E13.9 - Other specified diabetes mellitus without complications, E55.9 - Vitamin D deficiency, unspecified, E66.9 - Obesity, unspecified, G47.33 - Obstructive sleep apnea (adult) (pediatric), I10 - Essential (primary) hypertension, L21.9 - Seborrheic dermatitis, unspecified, M25.361 - Other instability, right knee, S83.241A - Other tear of medial meniscus, current injury, right knee, initial encounter, Z00.01 - Encounter for general adult medical examination with abnormal findings Complete Blood Count Auto Diff Today E03.8 - Other specified hypothyroidism, E13.9 - Other specified diabetes mellitus without complications, E55.9 - Vitamin D deficiency, unspecified, E66.9 - Obesity, unspecified, G47.33 - Obstructive sleep apnea (adult) (pediatric), I10 - Essential (primary) hypertension, L21.9 - Seborrheic dermatitis, unspecified, M25.361 - Other instability, right knee, S83.241A - Other tear of medial meniscus, current injury, right knee, initial encounter, Z00.01 - Encounter for general adult medical examination with abnormal findings Comprehensive Met. Panel Today E03.8 - Other specified hypothyroidism, E13.9 - Other specified diabetes mellitus without complications, E55.9 - Vitamin D deficiency, unspecified, E66.9 - Obesity, unspecified, G47.33 - Obstructive sleep apnea (adult) (pediatric), I10 - Essential (primary) hypertension, L21.9 - Seborrheic dermatitis, unspecified, M25.361 - Other instability, right knee, S83.241A - Other tear of medial meniscus, current injury, right knee, initial encounter, Z00.01 - Encounter for general adult medical examination with abnormal findings Vitamin D 25-OH (D2 and D3) Today E03.8 - Other specified hypothyroidism, E13.9 - Other specified diabetes mellitus without complications, E55.9 - Vitamin D deficiency, unspecified, E66.9 - Obesity, unspecified, G47.33 - Obstructive sleep apnea (adult) (pediatric), I10 - Essential (primary) hypertension, L21.9 - Seborrheic dermatitis, unspecified, M25.361 - Other instability, right knee, S83.241A - Other tear of medial meniscus, current injury, right knee, initial encounter, Z00.01 - Encounter for general adult medical examination with abnormal findings Medications: Refilled ketoconazole 2% 1 appl topical 3XW 30 days 120 mL 2RF
[2024-07-22 15:32] VITALS: BP 118/70; PULSE 89; O2SAT 95; BMI 38.2
== END 2024-07-22 16:00 | disposition home or self-care (01) ==
PROVIDERS: PCP Internal Medicine; Visit Provider Internal Medicine
DX: Z00.00 Encounter for general adult medical examination without abnormal findings (principal); E13.9 Other specified diabetes mellitus without complications; L21.9 Seborrheic dermatitis, unspecified; E66.812 Obesity, class 2; Z68.38 Body mass index [BMI] 38.0-38.9, adult; I10 Essential (primary) hypertension; E03.8 Other specified hypothyroidism; E55.9 Vitamin D deficiency, unspecified; M25.361 Other instability, right knee; G47.33 Obstructive sleep apnea (adult) (pediatric); S83.241A Other tear of medial meniscus, current injury, right knee, initial encounter

== ENCOUNTER 2024-09-06 13:40 | Outpatient (REF) | payer MEDICARE, MEDICAID, SELFPAY | END 2024-09-06 13:41 | disposition home or self-care (01) | LOC: HO.HMGCLDS 13:40 | PROVIDERS: PCP Internal Medicine; Visit Provider Internal Medicine | DX: Z13.89 Encounter for screening for other disorder (principal) ==

== ENCOUNTER 2024-10-21 15:08 | Outpatient (AMB) | payer MEDICARE, MEDICAID, SELFPAY ==
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
== END 2024-10-21 15:33 | disposition home or self-care (01) ==
PROVIDERS: PCP Internal Medicine; Visit Provider Orthopaedic Surgery
DX: S83.241S Other tear of medial meniscus, current injury, right knee, sequela (principal)
CPT/HCPCS: 99213; G2211

== ENCOUNTER → 2024-10-21 15:08 | Outpatient (BNVA) | payer MEDICARE, MEDICAID, SELFPAY | PROVIDERS: PCP Internal Medicine; Visit Provider Orthopaedic Surgery | DX: S83.241D Other tear of medial meniscus, current injury, right knee, subsequent encounter (principal) | CPT/HCPCS: 99212 ==

== ENCOUNTER 2024-10-22 14:12 | Outpatient (AMB) | payer MEDICARE, MEDICAID, SELFPAY ==
[2024-10-22 14:22] VITALS: BP 118/64; BMI 38.6
--- NOTE | 2024-10-22 14:22 | MHC.OFFVIS ---
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 She is doing well with production boring machine operator concerns. Currently not sexually active. Denies any vaginal dryness or irritation. Attempting to eat a healthy diet with calcium and vitamin D. No regular exercise due to knee condition. Last pap smear; 2020. Last mammogram; 2023. Colonoscopy unsure of date. Denies any family history of breast or ovarian cancer. FH colon cancer-brother. [facility] Medical History Obstructive sleep apnea Obesity Obstructive sleep apnea on CPAP Diabetes 1.5, managed as type 2 Anxiety, generalized Depression, major, recurrent Other specified hypothyroidism Hypertension, essential Surgical History History of ear surgery History of colonoscopy Family History Son No problems noted. Son No problems noted. Brother Colon cancer Other Adopted Social History Housing: House Alcohol intake: never Patient Tobacco Use Status: Former Tobacco user Tobacco use type: Cigarette Years Smoked: since age 11 e-Cigarette/Vaping Use: Never Used service: No Current occupational status: employed and disabled Current occupation: rt handed Cognitive needs: No Hearing needs: No Vision needs: Yes Female Reproductive History Menstrual Age of Menarche: 11 Menopause type: natural Total pregnancies: 2 Full term: 2 Number of Living Children: 2 Date of last pap smear: 02/08/21 (neg pap and hpv) Date of Mammogram: 11/06/23 ( birad 1) Review of Systems Const All systems reviewed & are unremarkable except as noted in HPI and below Reports as per HPI Eyes Reports no additional complaints ENT Reports no additional complaints Card Reports no additional complaints Resp Reports no additional complaints GI Reports as per HPI and Reports no additional complaints Reports as per HPI Musc Reports no additional complaints Skin/Breast Reports as per HPI Neuro Reports no additional complaints Psych Reports no additional complaints Endo Reports no additional complaints Khadar/Lymph Reports no additional complaints Aller/Immun Reports no additional complaints Physical Exam Vital Signs: Last Vital Signs BP 118/64 10/22/24 14:22 BMI result Body Mass Index 38.6 Const General: cooperative, healthy appearing, no acute distress, well developed and alert Orientation/consciousness: patient oriented x3 HEENT Head: Yes normal to inspection Eyes General: appearance normal, both eyes and all related structures Neck Neck: Yes normal visual inspection Thyroid: Thyroid normal Chest Chest palpation & inspection: normal inspection of the chest and other (no puckering, dimpling, peau de orange, retraction, discharge, masses) Breast/axilla inspection: normal inspection of the breasts Breast/axilla palpation: normal palpation of the breasts Resp Effort & Inspection: normal respiratory effort GI Inspection: Yes normal to inspection Palpation (GI): Soft to palpation Rectal Exam - Female: deferred General: Yes bladder normal to palpation External Female Exam: normal external appearance and normal appearance of the urethra Speculum Exam - Vagina: normal appearance of the vagina, normal palpation, normal vaginal discharge and vagina atrophic Speculum Exam - Cervix: normal appearance of the cervix and normal palpation Bimanual exam- vagina & uterus: normal bimanual exam, normal palpation, uterine size normal, bladder normal to palpation, normal palpation and non-tender Bimanual Exam- Adnexa, other: no masses Skin General skin exam: no rashes or lesions noted Rashes: no rashes Neuro General: patient oriented x3 Cognition (Neuro): normal cognition Extrem General: Yes normal to inspection Psych Attitude: cooperative Thought process: Normal thought process present Assessment & Plan Assessment & Plan (1) Encounter for well woman exam with routine gynecological exam: Code(s): Z01.419 - Encounter for gynecological examination (general) (routine) without abnormal findings Category: Medical Plan Discussed: Current recommendations for pap smears per ASCCP guidelines. Breast awareness, periodic self breast exams and yearly mammogram. Maintain a healthy lifestyle, well balanced diet including Calcium 1,200 mg and Vitamin D 600 IU daily, and routine exercise. Contact the office with any postmenopausal bleeding. Patient verbalizes understanding and agrees to the plan of care. She was given opportunity to ask questions and all questions were answered to the best of my ability. 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 This note is constructed using voice recognition software. While every effort has been made to ensure accuracy, machine maintenance mechanic errors may have been included. Coding Level of Care Code Est Pt Prev Care 40-64y(41403) Diagnoses Encounter for well woman exam with routine gynecological exam Z01.419
== END 2024-10-22 15:28 | disposition home or self-care (01) ==
LOC: HO.HWS 14:12
PROVIDERS: PCP Internal Medicine; Visit Provider Advanced Practice Midwife
DX: Z01.419 Encounter for gynecological examination (general) (routine) without abnormal findings (principal)
CPT/HCPCS: 99396; 99459

== ENCOUNTER → 2024-10-22 14:12 | Outpatient (BNVA) | payer MEDICARE, MEDICAID, SELFPAY | PROVIDERS: PCP Internal Medicine; Visit Provider Advanced Practice Midwife | DX: Z01.419 Encounter for gynecological examination (general) (routine) without abnormal findings (principal) | CPT/HCPCS: 99396; 99459 ==

== ENCOUNTER → 2024-11-12 14:00 | Outpatient (BNV) | payer MEDICARE, SELFPAY | PROVIDERS: PCP Internal Medicine; Visit Provider Internal Medicine | DX: Z12.31 Encounter for screening mammogram for malignant neoplasm of breast (principal) | CPT/HCPCS: 77063; 77067 ==

== ENCOUNTER 2024-11-12 14:01 | Outpatient (REF) | payer MEDICARE, SELFPAY | END 2024-11-12 14:02 | disposition home or self-care (01) | LOC: HO.MAMMO 14:01 | PROVIDERS: PCP Internal Medicine; Visit Provider Internal Medicine | DX: Z12.31 Encounter for screening mammogram for malignant neoplasm of breast (principal) | CPT/HCPCS: 77063; 77067 ==

== ENCOUNTER 2024-11-18 12:24 | Outpatient (REF) | payer MEDICARE, MEDICAID, SELFPAY ==
[2024-11-18 16:22] LABS: MANUAL DIFF FLAG NO
[2024-11-18 16:30] LABS: Basophils Percent Auto 0.6 % (0-2); Eosinophils Absolute Auto 0.2 X10*3/uL (0.0-0.4); Eosinophils Percent Auto 2.3 % (0-4); Hematocrit 40.2 % (37.0-47.0); Hemoglobin 13.4 g/dl (12.0-16.0); Imm Gran Abs Auto 0.02 X10*3/uL (0.00-0.03); Imm Gran Pct Auto 0.3 % (0.0-0.4); Lymphocytes Absolute Auto 2.4 X10*3/uL (1.2-4.9); Lymphocytes Percent Auto 33.9 % (20-40); Mean Corpuscular HGB Conc 33.3 g/dl (31.0-35.0); Mean Corpuscular Hemoglobin 28.4 pg (27.0-33.0); Mean Corpuscular Volume 85.2 fL (80.0-98.0); Mean Platelet Volume 9.1 fL (9.4-12.3); Monocytes Absolute Auto 0.5 X10*3/uL (0.1-1.2); Monocytes Percent Auto 7.6 % (2-11); Neutrophils Absolute Auto 3.9 x10*3/uL (2.0-8.3); Neutrophils Percent Auto 55.3 % (45-73); Platelet Count 437 X10*3/uL (160-400); Red Blood Count 4.72 X10*6/uL (4.20-5.50); Red Cell Distribution Width 13.8 % (11.0-16.0); White Blood Count 7.1 X10*3/uL (4.8-10.8)
[2024-11-18 16:51] LABS: Estimated Average Glucose 154 mg/dL; Total Hemoglobin (HGBA1C) 3568.5008 umol/L
[2024-11-18 16:59] LABS: Alanine Aminotransferase 29 U/L (0-31); Albumin Level 4.5 g/dL (3.5-5.0); Alkaline Phosphatase 52 U/L (39-117); Anion Gap 20 (12-20); Aspartate Amino Transferase 27 U/L (5-31); Bilirubin Total 0.4 mg/dL (0.0-1.0); Blood Urea Nitrogen 26 mg/dL (9-16); Calcium 9.6 mg/dL (8.4-10.2); Carbon Dioxide 24 mmol/L (22-29); Chloride 102 mmol/L (96-108); Estimated Glomerular Filt Rate 48; Glucose Random 111 mg/dL (60-115); Potassium 4.6 mmol/L (3.3-5.1); Sodium 141 mmol/L (135-145); Total Protein 8.1 g/dL (6.5-8.0)
[2024-11-18 17:03] LABS: TSH reflex Free T4 3.13 uIU/mL (0.32-4.0)
[2024-11-19 16:32] LABS: LDL Cholesterol Direct 130 mg/dL (<100)
[2024-11-23 13:03] LABS: Vitamin D 25-OH, D2 <4 ng/mL; Vitamin D 25-OH, D3 48 ng/mL; Vitamin D 25-OH, Total 48 ng/mL (30-100)
== END 2024-11-18 12:25 | disposition home or self-care (01) ==
LOC: HO.HMGCLDS 12:24
PROVIDERS: PCP Internal Medicine; Visit Provider Internal Medicine
DX: Z00.01 Encounter for general adult medical examination with abnormal findings (principal); I10 Essential (primary) hypertension; E03.8 Other specified hypothyroidism; E13.9 Other specified diabetes mellitus without complications; E55.9 Vitamin D deficiency, unspecified; E66.9 Obesity, unspecified; L21.9 Seborrheic dermatitis, unspecified; M25.361 Other instability, right knee; S83.241A Other tear of medial meniscus, current injury, right knee, initial encounter; G47.33 Obstructive sleep apnea (adult) (pediatric)
CPT/HCPCS: 36415; 80053; 82043; 82306; 82570; 83036; 83721; 84443; 85025

== ENCOUNTER 2024-11-21 07:16 | Day surgery (SDC) | payer MEDICARE, MEDICAID, SELFPAY ==
[2024-11-19 11:29] VITALS: BMI 38.6
[2024-11-21] VITALS (9 sets, daily range): BP systolic 116–135; BP diastolic 62–82; PULSE 69–77; RESP 12–18; TEMP 36.2–36.6; O2SAT 96–98; BMI 38.8
[2024-11-21 08:17] LABS: Glucose, Whole Blood 152 mg/dL (60-115)
[2024-11-21] MEDS: Lactated Ringers 1,000 ML 100 ML IVCONT (08:21)
--- NOTE | 2024-11-21 08:29 | P.CONAN_ITS ---
Documented by User: Zainab Rea NP 11/19/24 14:13 HPI - Anesthesia Eval Consult details Narrative: 59yo F for Right Knee Arthroscopy partial medial meniscectomy PMFSH Active Problems Active Problems: All Active Problems Encounter for well woman exam with routine gynecological exam (Acute) Tear of medial meniscus of right knee (Acute) Obstructive sleep apnea (Acute) Right knee pain (Acute) Fibroma of upper extremity (Acute) Pain in right elbow (Acute) Unstable right knee (Acute) Right knee injury (Acute) Obesity due to excess calories (Acute) Microalbuminuria (Acute) Seborrheic dermatitis of scalp (Acute) Sleep apnea in adult (Acute) Major depressive disorder, recurrent, mild (Acute) Obesity (BMI 30-39.9) (Acute) Daytime sleepiness (Acute) Vitamin D deficiency (Acute) Ex-smoker (Acute) Respiratory infection (Acute) Encounter for general adult medical examination with abnormal findings (Acute) Obesity (Acute) Obstructive sleep apnea on CPAP (Acute) Diabetes 1.5, managed as type 2 (Acute) Anxiety, generalized (Acute) Depression, major, recurrent (Acute) Other specified hypothyroidism (Acute) Hypertension, essential (Acute) Past Medical History Medical History Obstructive sleep apnea Obesity Obstructive sleep apnea on CPAP Diabetes 1.5, managed as type 2 Anxiety, generalized Depression, major, recurrent Other specified hypothyroidism Hypertension, essential Family History Family History Son No problems noted. Son No problems noted. Brother Colon cancer Other Adopted Surgical History Surgical History History of ear surgery History of colonoscopy Social History Social History Housing: House Alcohol intake: never Patient Tobacco Use Status: Former Tobacco user Tobacco use type: Cigarette Years Smoked: since age 11 e-Cigarette/Vaping Use: Never Used Use of substances other than those prescribed or required for medical reasons: No Are you DNR?: No Advance Directives: No Advance Directives Information Provided: Yes service: No Current occupational status: employed and disabled Current occupation: rt handed Cognitive needs: No Hearing needs: No Vision needs: Yes Meds Allergies Allergy/AdvReac Type Severity Reaction Status Date / Time amlodipine Allergy Unknown unknown Verified 10/22/24 14:23 contact metal agent Allergy Unknown Skin Verified 10/22/24 14:23 breakout lisinopril [LISINOPRIL] Allergy Unknown COUGH Verified 10/22/24 14:23 nickel [NICKEL] Allergy Unknown HIVES Verified 10/22/24 14:23 Active Medications: Current Medications Cefazolin Sodium/Dextrose (Ancef) 2 gm in 50 mls @ 100 mls/hr IV PREOP ONE Stop: 11/21/24 06:18 Home Medications ?Medication ?Instructions ?Recorded ?Confirmed ?Last Taken ?Type bupropion HCl 150 mg 24 hr tablet, mg PO 09/17/20 10/21/24 Unknown History extended release fluoxetine 20 mg capsule mg PO 09/17/20 10/21/24 Unknown History Exam Height,Weight and Vital Signs: Height 5 ft 5 in Weight 105.233 kg Pertinent Lab Results Pertinent Lab Results: Laboratory Tests 11/18/24 12:57 WBC 7.1 Hgb 13.4 Hct 40.2 Plt Count 437 H Sodium 141 Potassium 4.6 Chloride 102 Carbon Dioxide 24 BUN 26 H Creatinine 1.15 Assessment and Plan Assessment Anesthesia Assessment: Chart Reviewed Documented by User: Anne Banegas DO 11/21/24 08:31 [facility] Past Medical History Medical History Obstructive sleep apnea Obesity Obstructive sleep apnea on CPAP Diabetes 1.5, managed as type 2 Anxiety, generalized Depression, major, recurrent Other specified hypothyroidism Hypertension, essential Family History Family History Son No problems noted. Son No problems noted. Brother Colon cancer Other Adopted Family history of problems with anesthesia: No Surgical History Surgical History History of ear surgery History of colonoscopy History of Problems with Anesthesia: No Social History Social History Housing: House Alcohol intake: never Patient Tobacco Use Status: Former Tobacco user Tobacco use type: Cigarette Years Smoked: since age 11 e-Cigarette/Vaping Use: Never Used Use of substances other than those prescribed or required for medical reasons: No Are you DNR?: No Advance Directives: No Advance Directives Information Provided: Yes service: No Current occupational status: employed and disabled Current occupation: rt handed Cognitive needs: No Hearing needs: No Vision needs: Yes Meds Allergies Allergy/AdvReac Type Severity Reaction Status Date / Time amlodipine Allergy Unknown unknown Verified 10/22/24 14:23 contact metal agent Allergy Unknown Skin Verified 10/22/24 14:23 breakout lisinopril [LISINOPRIL] Allergy Unknown COUGH Verified 10/22/24 14:23 nickel [NICKEL] Allergy Unknown HIVES Verified 10/22/24 14:23 Home Medications ?Medication ?Instructions ?Recorded ?Confirmed ?Last Taken ?Type bupropion HCl 150 mg 24 hr tablet, mg PO 09/17/20 10/21/24 Unknown History extended release fluoxetine 20 mg capsule mg PO 09/17/20 10/21/24 Unknown History Exam Exam Date and Time: 11/21/24 0828 Height,Weight and Vital Signs: Height 5 ft 5 in Weight 105.233 kg Vital Signs Temperature 97.2 F 11/21/24 08:03 Pulse Rate 73 11/21/24 08:03 Respiratory Rate 18 11/21/24 08:03 Blood Pressure 120/63 11/21/24 08:03 Pulse Oximetry 97 11/21/24 08:03 Oxygen Delivery Method Room Air 11/21/24 08:03 Temperature 97.2 F 11/21/24 08:03 Pulse Rate 73 11/21/24 08:03 Respiratory Rate 18 11/21/24 08:03 Blood Pressure 120/63 11/21/24 08:03 Pulse Oximetry 97 11/21/24 08:03 Oxygen Delivery Method Room Air 11/21/24 08:03 Airway Mallampati Class: II TM Dist: <=3cm Neck ROM: Full Loose/Missing/Broken Teeth: No (patient denies any loose or broken teeth) Heart: S1S2 Lungs: CTAB Assessment and Plan Assessment Anesthesia Assessment: Anesthesia Plan Discussed and Chart Reviewed Final Anesthetic Review Family History of Problems with Anesthesia: No History of Problems with Anesthesia: No NPO: Yes ASA Class: II Final Preanesthetic Review: No Changes in Pt Med Stat, Meds/Allgs Chart Reviewed, Consent Obtained/Reviewed and Anes Risks/Benef Reviewed Patient Risk: Low Procedure Risk: Low Anesthetic Plan Anesthetic Plan: GA and Agree w/ Assess. and Plan Disposition: Standard PACU
--- NOTE | 2024-11-21 10:07 | PM.OP ---
Brief Operative Note Date of Service: 11/21/24 Pre-op diagnosis: Right knee medial meniscus tear, right knee degenerative joint disease Post-op diagnosis: same Procedure: Right knee diagnostic arthroscopy with right knee arthroscopic partial medial meniscectomy, right knee arthroscopic chondroplasty of the undersurface of the patella and medial femoral condyle Implants: none Surgeon: Clemente Stewart MD Anesthesia: GLMA Was an Emergency Care Attendant used for this Procedure?: No Estimated blood loss (mL): 10 Pathology: none sent Condition: stable Disposition: PACU
--- NOTE | 2024-11-21 10:08 | W.PM.OPN ---
Operative Note Operative Note Date of Service: 11/21/24 Narrative: After the patient was identified as Malik Fisher and her right knee was initialed by myself they were brought to the operating room where general anesthesia was induced by the anesthesiologist in routine fashion. The patient was given 2 g of IV Ancef for infection prophylaxis. A formal time-out was completed. The patient's right lower extremity was prepped and draped in sterile fashion. Marcaine with epinephrine was injected into the planned incision sites as well as their right knee joint. A # 11 scalpel blade was used to make an anterolateral portal 1 cm proximal to the joint line and 1 cm lateral to the patellar tendon. Blunt trocar technique was used into the suprapatellar pouch with the knee in extension. Diagnostic arthroscopy showed multiple bands of thickened plica which would be excised at the end of the procedure. There were no loose bodies or abnormalities found in either the medial or lateral gutters. There were diffuse grades 1 and 2 degenerative changes of the undersurface of the patella as well as grade 1 degenerative changes of the trochlear groove. The patient's knee was flexed to 45 degrees and a valgus force was placed upon it. The medial compartment was entered. An anteromedial portal was made 1 cm proximal to the joint line and 1 cm medial to the patellar tendon. Probing of the medial meniscus showed a radial tear of the posterior horn. A partial medial meniscectomy was performed using the arthroscopic shaver and arthroscopic biter. Following the partial meniscectomy the remainder of the meniscus tissue was stable. There were diffuse grades 1 and 2 degenerative changes of the medial femoral condyle as well as diffuse grade 1 degenerative changes of the medial tibial plateau. The articular surface of the medial femoral condyle was made smooth using the arthroscopic shaver. The articular surface of the medial tibial plateau was already smooth so no chondroplasty was indicated. The patient's knee was then placed into a neutral position. There was no injury to the anterior cruciate ligament. The patient's knee was then placed into the figure of 4 position and the lateral compartment was entered. There were minimal degenerative changes of the lateral femoral condyle and lateral tibial plateau. There was no evidence of lateral meniscus tearing. The patient's knee was once again brought into extension and the suprapatellar pouch was entered. The arthroscopic shaver and the ArthroCare Wand were used to excise the thickened bands of plica. The undersurface of the patella was then made smooth using the arthroscopic shaver. The articular surface of the trochlear groove was already smooth so no chondroplasty was indicated. The knee joint was irrigated and then drained. All arthroscopic instruments were removed. The 2 portals were closed with 3-0 nylon interrupted suture. The knee joint was injected with Marcaine. Dry sterile dressing and Damien bandages were placed over the patient's knee. The patient was awoken and extubated in the operating room. They were transferred to the recovery room in stable condition.
[2024-11-21] MEDS: oxyCODONE HCl Immed Release 5 MG TABLET PO (10:33)
[2024-11-21] MEDS: cefTRIAXone sodium 1 GM VIAL IVPUSH (10:33)
[2024-11-21] MEDS: fentaNYL citrate/PF 100 MCG/2 ML VIAL 50 MCG IVPUSH ×2 (10:33→10:55)
== END 2024-11-21 12:26 | disposition home or self-care (01) ==
PROVIDERS: PCP Internal Medicine; Visit Provider Orthopaedic Surgery
PROC: (CPT 29870; principal; 2024-11-21 09:00)
DX: S83.241A Other tear of medial meniscus, current injury, right knee, initial encounter (principal); W22.09XA Striking against other stationary object, initial encounter; V86.55XA Driver of 3- or 4- wheeled all-terrain vehicle (ATV) injured in nontraffic accident, initial encounter; Y92.9 Unspecified place or not applicable; Y99.9 Unspecified external cause status; M17.11 Unilateral primary osteoarthritis, right knee; M25.561 Pain in right knee; M23.51 Chronic instability of knee, right knee; M67.51 Plica syndrome, right knee; I10 Essential (primary) hypertension; E03.8 Other specified hypothyroidism; E13.8 Other specified diabetes mellitus with unspecified complications; F32.A Depression, unspecified; G47.33 Obstructive sleep apnea (adult) (pediatric); Z79.84 Long term (current) use of oral hypoglycemic drugs; Z79.899 Other long term (current) drug therapy; Z99.89 Dependence on other enabling machines and devices; L23.0 Allergic contact dermatitis due to metals; Z88.8 Allergy status to other drugs, medicaments and biological substances
CPT/HCPCS: 29881; 82947; J0131; J0171; J0690; J0696; J2250; J2795; J3010

== ENCOUNTER → 2024-11-21 07:16 | Outpatient (BNV) | payer MEDICARE, MEDICAID, SELFPAY | PROVIDERS: PCP Internal Medicine; Visit Provider Orthopaedic Surgery | DX: S83.241A Other tear of medial meniscus, current injury, right knee, initial encounter (principal) | CPT/HCPCS: 29881 ==

== ENCOUNTER 2024-11-25 11:54 | Outpatient (AMB) | payer MEDICARE, MEDICAID, SELFPAY ==
--- NOTE | 2024-11-25 11:57 | MHC.PC.OV ---
Vital Signs 11/25/24 11:59 Height 5 ft 5 in Weight 235 lb BMI 39.1 BP 130/70 Blood Pressure Location Lt brachial Position Sitting Respiration 16 Pulse 75 Pulse Source Pulse Oximeter Temp 98.0 F Temp Source Oral Pulse Oximetry (%) 96 Intake Visit Reasons: 4 months f/up Allergies amlodipine Allergy (Unknown, Verified 10/22/24 14:23) unknown contact metal agent Allergy (Unknown, Verified 10/22/24 14:23) Skin breakout lisinopril [LISINOPRIL] Allergy (Unknown, Verified 10/22/24 14:23) COUGH nickel [NICKEL] Allergy (Unknown, Verified 10/22/24 14:23) HIVES Medication List - Last Reconciled 11/25/24 by Tony Wilson MD atenolol 25 mg PO DAILY bupropion HCl XL mg PO ezetimibe 10 mg PO DAILY 90 days fenofibrate 160 mg PO DAILY 90 days fluoxetine mg PO irbesartan-hydrochlorothiazide 300-12.5 mg 1 tab PO DAILY 90 days ketoconazole 2% 1 appl topical 3XW 30 days levothyroxine 75 mcg PO DAILY 90 days metformin 500 mg PO ONCE 90 days oxycodone 5 mg PO Q6H PRN Tobacco use date assessed: 11/25/24 Dental Screening Dental Screen Date: 11/25/24 Did you have a dental visit in the last 12 months?: Yes Did you have a dental problem in the last 6 months where you did not have access to dental care?: No Was dental information given to patient?: Patient has dentist HPI 4 months f/up HPI Details - The patient is a 59-year-old female presenting for regular follow-up appointment Patient recently had surgical repair of right knee meniscus, still feeling sore Patient is diabetic currently she is taking metformin 500 mg, hemoglobin A1c is stable Hypothyroidism: Continue levothyroxine 75 mcg Hypertension: Blood pressure is stable patient is on irbesartan hydrochlorothiazide 300-12.5 mg, tolerating medication. And atenolol 25 mg Lipid disorder: Continue fenofirate 160 mg Depression: Patient is is stable currently she is on Wellbutrin and fluoxetine BMI is elevated : patient is having difficulty losing weight. Problem List - Surgical repair of right knee meniscus - Type 2 Diabetes Mellitus with A1c of 7.0 - Chronic kidney disease stage 3 (GFR 48) - Essential hypertension - Hypothyroidism - obesity Patient Instructions - Continue taking Metformin 500 mg as current creatinine levels support its use. - Monitor blood glucose levels regularly and maintain dietary control for diabetes management. - Follow up for laboratory tests in February to reassess HbA1c and kidney function. - Wait on starting Zepbound until further evaluation of kidney health and other concerns. - Contact healthcare provider if experiencing any new symptoms or adverse effects. Review of Systems - Musculoskeletal: Reports swelling and soreness post-right knee surgery. - General: No fever no chills - Neurological: No headaches no dizziness - Ear nose throat: No sore throat no hearing difficulty no ear pain - Cardiovascular: No syncope, no chest pain, no palpitations - Gastrointestinal: No nausea vomiting or diarrhea - Endocrine: No polyuria polydipsia no heat intolerance - Genitourinary: No dysuria , no blood in urine Physical Exam General: No acute distress HEENT: No acute findings Neck: Supple Respiratory system: Able to talk in full sentences, no audible wheeze cardiovascular: S1-S2 regular in rate and rhythm Gastrointestinal: No pain Extremities: Swollen and sore right knee FIBER TECHNOLOGIST: Alert awake oriented x3 motor sensory intact Skin: Normal turgor [facility] Medical History Obstructive sleep apnea Obesity Obstructive sleep apnea on CPAP Diabetes 1.5, managed as type 2 Anxiety, generalized Depression, major, recurrent Other specified hypothyroidism Hypertension, essential Surgical History History of ear surgery History of colonoscopy Family History Son No problems noted. Son No problems noted. Brother Colon cancer Other Adopted Social History Housing: House Alcohol intake: never Patient Tobacco Use Status: Former Tobacco user Tobacco use type: Cigarette Years Smoked: since age 11 e-Cigarette/Vaping Use: Never Used service: No Current occupational status: employed and disabled Current occupation: rt handed Cognitive needs: No Hearing needs: No Vision needs: Yes Female Reproductive History Menstrual Age of Menarche: 11 Questionnaire PHQ-9 Over the last 2 weeks, how often have you been bothered by any of the following problems? 1. Little interest or pleasure in doing things: more than half the days 2. Feeling down, depressed, or hopeless: more than half the days 3. Trouble falling or staying asleep, or sleeping too much: several days 4. Feeling tired or having little energy: more than half the days 5. Poor appetite or overeating: several days 6. Feeling bad about yourself - or that you are a failure or have let yourself or your family down: several days 7. Trouble concentrating on things, such as reading the newspaper or watching television: several days 8. Moving or speaking so slowly that other people could have noticed. Or the opposite - being so fidgety or restless that you have been moving around a lot more than usual: several days 9. Thoughts that you would be better off or of hurting yourself in some way: not at all Total score: 11 Depression Screening Interpretation: Positive Depression Screening Follow-up: Existing condition and In treatment Depression Screening Done: Yes 28032 - PHQ-9 Billing: Yes Source: Developed by Drs. Ezra Valdez, Miley Kulkarni, Jovanny Lainez and colleagues, with an educational keny from [employer]. Thrive Questionnaire Date Thrive assessed: 11/25/24 I am a: Patient What is your living situation today?: I choose not to answer this question Within the past 12 months, did the food you bought not last and you didn't have the money to get more?: I choose not to answer this question Within the past 12 months, did you worry whether your food would run out before you got money to buy more?: I choose not to answer this question Do you have trouble paying for medicines?: No Do you have trouble getting transportation to medical appointments?: No Do you have trouble paying your heating and electricity bill?: I choose not to answer this question Do you have trouble taking care of your child, family member or friend?: I choose not to answer this question Do you have trouble with day-to-day activities such as bathing, preparing meals, shopping, managing finances, etc.?: I choose not to answer this question Are you currently unemployed and looking for a job?: I choose not to answer this question Are you interested in more education?: I choose not to answer this question Please select the resources that you would like help with: None Currently or been in a relationship where the following occur: No concerns reported THRIVE Score: 0 AUDIT C Alcohol Use Questionnaire (AUDIT-C) 1. How often do you have a drink containing alcohol?: Never 3. How often do you have six or more drinks on one occasion?: Never Total Score: 0 Score Reviewed/Action Taken: Yes VIRGINIA-7 AMB Questionnaire VIRGINIA-7 Date VIRGINIA - 7 assessed: 11/25/24 Feeling nervous, anxious, or on edge: 0 = Not at all Not being able to stop or control worryin = Not at all Worrying too much about different things: 0 = Not at all Trouble relaxin = Not at all Being so restless that it is hard to sit still: 0 = Not at all Becoming easily annoyed or irritable: 0 = Not at all Feeling afraid as if something awful might happen: 0 = Not at all Total V[place]GINIA-7 score (0-4 normal; 5-9 mild; 10-14 moderate; 15-21 severe): 0 Source: Developed by Drs. Ezra Valdez, Miley Kulkarni, Jovanny Lainez and colleagues, with an educational keny from [employer]. VIRGINIA-7 Assessment Billing VIRGINIA-7 Assessment Tool: VIRGINIA-7 Assessment 56202 Physical exam (Primary Care) Vital Signs: Last Vital Signs Temp 98.0 F 11/25/24 11:59 Pulse 75 11/25/24 11:59 Resp 16 11/25/24 11:59 BP 130/70 11/25/24 11:59 Pulse Ox 96 11/25/24 11:59 BMI result Body Mass Index 39.1 Tobacco/Smoking Status: Tobacco use Status Tobacco use date assessed 11/25/24 11/25/24 12:02 Patient Tobacco Use Status Former Tobacco user 11/25/24 11:58 Tobacco use type Cigarette 11/25/24 11:58 e-Cigarette/Vaping Use Never Used 11/25/24 11:58 PHQ-9: PHQ-9 Score PHQ-9: Total score 11 11/25/24 12:05 Depression Screening Interpretation: Positive Depression Screening Follow-up: Existing condition and In treatment Thrive Assessment: Date of Thrive Assessment Date Thrive assessed 11/25/24 11/25/24 11:58 Currently or been in a relationship where the following occur: No concerns reported Coding Level of Care Code Est Pt Level 4 (23745) Complex EM visit Add On G2211 Diagnoses Diabetes 1.5, managed as type 2 E13.9 Hypertension, essential I10 Other specified hypothyroidism E03.8 Recurrent major depressive disorder, in partial remission F33.41 Active/Remission status: in partial remission Anxiety, generalized F41.1 Microalbuminuria R80.9 Additional Codes VIRGINIA-7 Assessment Billing - VIRGINIA-7 Assessment Tool: VIRGINIA-7 Assessment 72463 ([id number]) PHQ-9 - 22250 - PHQ-9 Billing: Yes ([id number]) Assessment & Plan Assessment & Plan (1) Diabetes 1.5, managed as type 2: Code(s): E13.9 - Other specified diabetes mellitus without complications Category: Medical (2) Hypertension, essential: Code(s): I10 - Essential (primary) hypertension Category: Medical (3) Other specified hypothyroidism: Code(s): E03.8 - Other specified hypothyroidism Category: Medical (4) Depression, major, recurrent: Code(s): F33.9 - Major depressive disorder, recurrent, unspecified Category: Medical Qualifiers: Active/Remission status: in partial remission Qualified Code(s): F33.41 - Major depressive disorder, recurrent, in partial remission (5) Anxiety, generalized: Code(s): F41.1 - Generalized anxiety disorder Category: Medical (6) Microalbuminuria: Code(s): R80.9 - Proteinuria, unspecified Category: Medical Plan - The patient is a 59-year-old female presenting for regular follow-up appointment Patient recently had surgical repair of right knee meniscus, still feeling sore Patient is diabetic currently she is taking metformin 500 mg, hemoglobin A1c is stable Hypothyroidism: Continue levothyroxine 75 mcg Hypertension: Blood pressure is stable patient is on irbesartan hydrochlorothiazide 300-12.5 mg, tolerating medication. And atenolol 25 mg Lipid disorder: Continue fenofirate 160 mg Depression: Patient is is stable currently she is on Wellbutrin and fluoxetine BMI is elevated : patient is having difficulty losing weight. Problem List - Surgical repair of right knee meniscus - Type 2 Diabetes Mellitus with A1c of 7.0 - Chronic kidney disease stage 3 (GFR 48) - Essential hypertension - Hypothyroidism - obesity Patient Instructions - Continue taking Metformin 500 mg as current creatinine levels support its use. - Monitor blood glucose levels regularly and maintain dietary control for diabetes management. - Follow up for laboratory tests in February to reassess HbA1c and kidney function. - Wait on starting Zepbound until further evaluation of kidney health and other concerns. - Contact healthcare provider if experiencing any new symptoms or adverse effects. Orders: Orders Hemoglobin A1c 2 Months E03.8 - Other specified hypothyroidism, E13.9 - Other specified diabetes mellitus without complications, F33.41 - Major depressive disorder, recurrent, in partial remission, F41.1 - Generalized anxiety disorder, I10 - Essential (primary) hypertension, R80.9 - Proteinuria, unspecified Complete Blood Count Auto Diff 2 Months E03.8 - Other specified hypothyroidism, E13.9 - Other specified diabetes mellitus without complications, F33.41 - Major depressive disorder, recurrent, in partial remission, F41.1 - Generalized anxiety disorder, I10 - Essential (primary) hypertension, R80.9 - Proteinuria, unspecified Comprehensive Met. Panel 2 Months E03.8 - Other specified hypothyroidism, E13.9 - Other specified diabetes mellitus without complications, F33.41 - Major depressive disorder, recurrent, in partial remission, F41.1 - Generalized anxiety disorder, I10 - Essential (primary) hypertension, R80.9 - Proteinuria, unspecified LDL Cholesterol Direct 2 Months E03.8 - Other specified hypothyroidism, E13.9 - Other specified diabetes mellitus without complications, F33.41 - Major depressive disorder, recurrent, in partial remission, F41.1 - Generalized anxiety disorder, I10 - Essential (primary) hypertension, R80.9 - Proteinuria, unspecified TSH reflex Free T4 2 Months E03.8 - Other specified hypothyroidism, E13.9 - Other specified diabetes mellitus without complications, F33.41 - Major depressive disorder, recurrent, in partial remission, F41.1 - Generalized anxiety disorder, I10 - Essential (primary) hypertension, R80.9 - Proteinuria, unspecified
[2024-11-25 11:59] VITALS: BP 130/70; PULSE 75; RESP 16; TEMP 36.7; O2SAT 96; BMI 39.1
== END 2024-11-25 12:21 | disposition home or self-care (01) ==
PROVIDERS: PCP Internal Medicine; Visit Provider Internal Medicine
DX: E13.9 Other specified diabetes mellitus without complications (principal); I10 Essential (primary) hypertension; E03.8 Other specified hypothyroidism; F33.41 Major depressive disorder, recurrent, in partial remission; F41.1 Generalized anxiety disorder; R80.9 Proteinuria, unspecified

== ENCOUNTER → 2024-11-25 11:54 | Outpatient (BNVA) | payer MEDICARE, MEDICAID, SELFPAY | PROVIDERS: PCP Internal Medicine; Visit Provider Internal Medicine | DX: E13.9 Other specified diabetes mellitus without complications (principal); I10 Essential (primary) hypertension; E03.8 Other specified hypothyroidism; F33.41 Major depressive disorder, recurrent, in partial remission; F41.1 Generalized anxiety disorder; R80.9 Proteinuria, unspecified | CPT/HCPCS: 96127; 99212 ==

== ENCOUNTER 2024-12-08 13:12 | Outpatient (AMB) | payer MEDICARE, SELFPAY ==
--- NOTE | 2024-12-08 13:17 | MHC.OFFVIS ---
Vital Signs 12/08/24 13:21 Height 5 ft 5 in Weight 235 lb BMI 39.1 Intake Visit Reasons: PO RT knee 11/21/24 DR Intake Note: Malik is a 59 year old female who presents today for a post operative RT knee , DOS 11/21/[address] Stewart. Patient reports she has been doing well, states her pain has been tolerable. States that she developed a hematoma located above her knee after her surgery. Finds relief with icing and Tylenol. Allergies amlodipine Allergy (Unknown, Verified 12/08/24 13:22) unknown contact metal agent Allergy (Unknown, Verified 12/08/24 13:22) Skin breakout lisinopril [LISINOPRIL] Allergy (Unknown, Verified 12/08/24 13:22) COUGH nickel [NICKEL] Allergy (Unknown, Verified 12/08/24 13:22) HIVES Medication List - Last Reconciled 12/08/24 by Jose Norman PA-C atenolol 25 mg PO DAILY bupropion HCl XL mg PO ezetimibe 10 mg PO DAILY 90 days fenofibrate 160 mg PO DAILY 90 days fluoxetine mg PO irbesartan-hydrochlorothiazide 300-12.5 mg 1 tab PO DAILY 90 days ketoconazole 2% 1 appl topical 3XW 30 days levothyroxine 75 mcg PO DAILY 90 days metformin 500 mg PO ONCE 90 days oxycodone 5 mg PO Q6H PRN HPI HPI PO RT knee 11/21/24 DR: Details: 59-year-old female returns to the office today status post right knee arthroscopy with Dr. Stewart on 11/21/2024. She is doing well. She has some discomfort in the anterior portion of the knee when she is doing stairs. [facility] Medical History Obstructive sleep apnea Obesity Obstructive sleep apnea on CPAP Diabetes 1.5, managed as type 2 Anxiety, generalized Depression, major, recurrent Other specified hypothyroidism Hypertension, essential Surgical History History of ear surgery History of colonoscopy Family History Son No problems noted. Son No problems noted. Brother Colon cancer Other Adopted Social History Housing: House Alcohol intake: never Patient Tobacco Use Status: Former Tobacco user Tobacco use type: Cigarette Years Smoked: since age 11 e-Cigarette/Vaping Use: Never Used service: No Current occupational status: employed and disabled Current occupation: rt handed Cognitive needs: No Hearing needs: No Vision needs: Yes Female Reproductive History Menstrual Age of Menarche: 11 Review of Systems Const All systems reviewed & are unremarkable except as noted in HPI and below Physical Exam Vital Signs: BMI result Body Mass Index 39.1 Extrem Other: Right knee incision clean dry and intact. No erythema. Range of motion 0-95 degrees. Calf supple nontender neurovascularly intact. Results Reviewed Results Reviewed: Brief Operative Note Date of Service: 11/21/24 Pre-op diagnosis: Right knee medial meniscus tear, right knee degenerative joint disease Post-op diagnosis: same Procedure: Right knee diagnostic arthroscopy with right knee arthroscopic partial medial meniscectomy, right knee arthroscopic chondroplasty of the undersurface of the patella and medial femoral condyle Implants: none Surgeon: Clemente Stewart MD Assessment & Plan Assessment & Plan (1) Tear of medial meniscus of right knee: Code(s): S83.241A - Other tear of medial meniscus, current injury, right knee, initial encounter Category: Medical Qualifiers: Encounter type: sequela Meniscus tear of knee type: unspecified type Tear current or old: current Qualified Code(s): S83.241S - Other tear of medial meniscus, current injury, right knee, sequela Plan Sutures removed today Steri-Strips applied. She will avoid deep bending kneeling twisting pivoting or squatting over the next 4-6 weeks. She was given an order for physical therapy to work on range of motion and gentle strengthening exercises. She will increase activities as tolerated and see us back in [address] Stewart, sooner if needed. Orders: Orders PT Evaluation and Treatment Today S83.241S - Other tear of medial meniscus, current injury, right knee, sequela Coding Level of Care Code Global (11530) Diagnoses Tear of medial meniscus of right knee, current, unspecified tear type, sequela S83.241S Encounter type: sequela Meniscus tear of knee type: unspecified type Tear current or old: current
[2024-12-08 13:21] VITALS: BMI 39.1
== END 2024-12-08 13:46 | disposition home or self-care (01) ==
PROVIDERS: PCP Internal Medicine; Visit Provider Physician Assistant
DX: S83.241S Other tear of medial meniscus, current injury, right knee, sequela (principal)
CPT/HCPCS: 99024

== ENCOUNTER → 2024-12-08 13:12 | Outpatient (BNVA) | payer MEDICARE, SELFPAY | PROVIDERS: PCP Internal Medicine; Visit Provider Physician Assistant | DX: S83.241D Other tear of medial meniscus, current injury, right knee, subsequent encounter (principal) | CPT/HCPCS: 99212 ==

== ENCOUNTER 2025-01-06 13:38 | Outpatient (AMB) | payer MEDICARE, SELFPAY ==
[2025-01-06 13:40] VITALS: BMI 39.1
--- NOTE | 2025-01-06 13:40 | A.OFFVIS_ITS ---
Vital Signs 01/06/25 13:40 Height 5 ft 5 in Weight 235 lb BMI 39.1 Intake Visit Reasons: PO-4wk fu RT knee 11/21/24 Intake Note: Malik is a 59 year old female who presents with complaints of mild to moderate discomfort in her right knee after undergoing right knee arthroscopic surgery on 11/21/2024. She continues to go to formal physical therapy. Allergies amlodipine Allergy (Unknown, Verified 01/06/25 13:41) unknown contact metal agent Allergy (Unknown, Verified 01/06/25 13:41) Skin breakout lisinopril [LISINOPRIL] Allergy (Unknown, Verified 01/06/25 13:41) COUGH nickel [NICKEL] Allergy (Unknown, Verified 01/06/25 13:41) HIVES Medication List - Last Reconciled 01/06/25 by Clemente Stewart MD atenolol 25 mg PO DAILY bupropion HCl XL mg PO ezetimibe 10 mg PO DAILY 90 days fenofibrate 160 mg PO DAILY 90 days fluoxetine mg PO irbesartan-hydrochlorothiazide 300-12.5 mg 1 tab PO DAILY 90 days ketoconazole 2% 1 appl topical 3XW 30 days levothyroxine 75 mcg PO DAILY 90 days metformin 500 mg PO ONCE 90 days oxycodone 5 mg PO Q6H PRN PFSH Medical History Obstructive sleep apnea Obesity Obstructive sleep apnea on CPAP Diabetes 1.5, managed as type 2 Anxiety, generalized Depression, major, recurrent Other specified hypothyroidism Hypertension, essential Surgical History History of ear surgery History of colonoscopy Family History Son No problems noted. Son No problems noted. Brother Colon cancer Other Adopted Social History Housing: House Alcohol intake: never Patient Tobacco Use Status: Former Tobacco user Tobacco use type: Cigarette Years Smoked: since age 11 e-Cigarette/Vaping Use: Never Used service: No Current occupational status: employed and disabled Current occupation: rt handed Cognitive needs: No Hearing needs: No Vision needs: Yes Female Reproductive History Menstrual Age of Menarche: 11 Physical Exam Vital Signs: BMI result Body Mass Index 39.1 Extrem Other: Right knee examination shows that the surgical incisions are well healed, no erythema, mild crepitus with range of motion, mild discomfort with range of motion Assessment & Plan Assessment & Plan (1) Right knee pain: Code(s): M25.561 - Pain in right knee Category: Medical Plan Ms. Fisher is doing fairly well after undergoing right knee arthroscopic surgery on 11/21/2024. The physical therapy exercises may be adding to her dis comfort. The patient states that she wishes to keep going for now. She will avoid any activities that cause significant increase in her discomfort. She will contact me prior to her follow-up appointment in 2 months should any questions or concerns arise. I did give her a prescription for ibuprofen to help with her discomfort in the meantime. Feel free to call me at any time should questions regarding her orthopedic management arise. Medications: New ibuprofen 800 mg PO Q12H PRN 60 tabs 2RF pain Coding Level of Care Code Global (72352) Diagnoses Right knee pain M25.561
== END 2025-01-06 14:10 | disposition home or self-care (01) ==
LOC: HO.HOS 13:39
PROVIDERS: PCP Internal Medicine; Visit Provider Orthopaedic Surgery
DX: M25.561 Pain in right knee (principal)
CPT/HCPCS: 99024

== ENCOUNTER → 2025-01-06 13:38 | Outpatient (BNVA) | payer MEDICARE, SELFPAY | PROVIDERS: PCP Internal Medicine; Visit Provider Orthopaedic Surgery | DX: M25.561 Pain in right knee (principal); Z47.89 Encounter for other orthopedic aftercare; Z98.890 Other specified postprocedural states | CPT/HCPCS: 99212 ==

== ENCOUNTER 2025-02-20 12:36 | Outpatient (AMB) | payer MEDICARE, SELFPAY ==
[2025-02-20 12:37] VITALS: BP 120/64; PULSE 80; O2SAT 97; BMI 38.4
--- NOTE | 2025-02-20 12:37 | A.OFFPC_ITS ---
Vital Signs 02/20/25 12:37 Height 5 ft 5 in Weight 230 lb 8 oz BMI 38.4 BP 120/64 Blood Pressure Location Rt brachial Position Sitting Pulse 80 Pulse Source Pulse Oximeter Pulse Oximetry (%) 97 Oxygen Delivery Method Room Air Intake Visit Reasons: 3m follow up Allergies amlodipine Allergy (Unknown, Verified 02/20/25 12:37) unknown contact metal agent Allergy (Unknown, Verified 02/20/25 12:37) Skin breakout lisinopril [LISINOPRIL] Allergy (Unknown, Verified 02/20/25 12:37) COUGH nickel [NICKEL] Allergy (Unknown, Verified 02/20/25 12:37) HIVES Medication List - Last Reconciled 02/20/25 by Tony Wilson MD atenolol 25 mg PO DAILY bupropion HCl XL mg PO ezetimibe 10 mg PO DAILY 90 days fenofibrate 160 mg PO DAILY 90 days fluoxetine mg PO ibuprofen 800 mg PO Q12H PRN irbesartan-hydrochlorothiazide 300-12.5 mg 1 tab PO DAILY 90 days ketoconazole 2% 1 appl topical 3XW 30 days levothyroxine 75 mcg PO DAILY 90 days metformin 500 mg PO ONCE 90 days oxycodone 5 mg PO Q6H PRN Tobacco use date assessed: 02/20/25 Dental Screening Dental Screen Date: 02/20/25 Did you have a dental visit in the last 12 months?: Yes Did you have a dental problem in the last 6 months where you did not have access to dental care?: No Was dental information given to patient?: Patient has dentist HPI 3m follow up HPI Details History - The patient is a 59-year-old female pr esenting with medication management and blood work. - Essential Hypertension: The patient re ports excellent control of her blood pressure. She is prescribed atenolol and irbesartan hydrochlorothiazide for management. The patient mentioned occasional noncompliance but currently reports her blood pressure is well-controlled. - Compromised Kidney Function: The patie nt recalls compromised kidney function identified in previous tests conducted in November. Labs were intended to be repeated but were delayed due to non-fasting at the last scheduled test. - Hyperlipidemia: The patient is on Ezet imibe for hyperlipidemia management. - seborrheic dermatitis: The patient men tions skin lesions at the base of her neck and behind her ear, treated with ketoconazole shampoo it has improved however patient would like to see a air export logistics manager Referral placed Medications - Atenolol 25 mg ? Managed for Essential Hypertension - Bupropion ? Indication not specified i n conversation - Ezetimibe ? Managed for Hyperlipidemia - Fenofibrate ? Indication not specified in conversation - Fluoxetine ? Indication not specified in conversation - Irbesartan Hydrochlorothiazide ? Manag ed for Essential Hypertension - Levothyroxine 75 mg ? Indication not s pecified in conversation - Metformin ? Indication not specified i n conversation Problem List - Essential Hypertension - Compromised Kidney Function - Hyperlipidemia - seborrheic dermatitis - obesity - depression and anxiety treated by Ps hiatry Patient Instructions - You can have all your blood tests done right now, even if you haven?t fasted. - Continue using your prescribed medicat ions as directed. - Keep using the medicated shampoo for s kin lesions until improvements are noted. - refill for Ezetimibe sent - Continue to manage your blood pressure as instructed and monitor your adherence to medications. - Dermatology referral placed Review of Systems General: No fever no chills neurological: No headaches no dizziness ear nose throat: No sore throat no hearing difficulty no ear pain cardiovascular: No syncope, no chest pain, no palpitations gastrointestinal: No nausea vomiting or diarrhea endocrine: No polyuria polydipsia no heat intolerance genitourinary: No dysuria skin: No new complaints Physical Exam general: No acute distress HEENT: No acute findings neck: Supple, with improvement noted at the base of the neck and behind the ear respiratory system: Able to talk in full sentences, no audible wheeze no stridor cardiovascular: S1-S2 RRR RRR gastrointestinal: No pain extremities: No new findings 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 Son No problems noted. Brother Colon cancer Other Adopted Social History Housing: House Alcohol intake: never Patient Tobacco Use Status: Former Tobacco user Tobacco use type: Cigarette Years Smoked: since age 11 e-Cigarette/Vaping Use: Never Used service: No Current occupational status: employed and disabled Current occupation: rt handed Cognitive needs: No Hearing needs: No Vision needs: Yes Female Reproductive History Menstrual Age of Menarche: 11 Questionnaire PHQ-9 Over the last 2 weeks, how often have you been bothered by any of the following problems? [id number] - PHQ-9 Billing: Patient declined-do not bill Source: Developed by Drs. Ezra Valdez, Miley Kulkarni, Jovanny Lainez and colleagues, with an educational keny from [employer]. Thrive Questionnaire Date Thrive assessed: 02/20/25 I am a: Patient What is your living situation today?: I choose not to answer this question Within the past 12 months, did the food you bought not last and you didn't have the money to get more?: I choose not to answer this question Within the past 12 months, did you worry whether your food would run out before you got money to buy more?: I choose not to answer this question Do you have trouble paying for medicines?: No Do you have trouble getting transportation to medical appointments?: No Do you have trouble paying your heating and electricity bill?: I choose not to answer this question Do you have trouble taking care of your child, family member or friend?: I choose not to answer this question Do you have trouble with day-to-day activities such as bathing, preparing meals, shopping, managing finances, etc.?: No Are you currently unemployed and looking for a job?: No Are you interested in more education?: No Please select the resources that you would like help with: None Currently or been in a relationship where the following occur: No concerns reported THRIVE Score: 0 AUDIT C Alcohol Use Questionnaire (AUDIT-C) 1. How often do you have a drink containing alcohol?: Never 3. How often do you have six or more drinks on one occasion?: Never Total Score: 0 Score Reviewed/Action Taken: Yes V[place]GIN[place]-7 AMB Questionnaire V[place]GINIA-7 Date V[place]GIN[place] - 7 assessed: 11/25/24 Source: Developed by Drs. Ezra Valdez, Miley Kulkarni, Jovanny Lainez and colleagues, with an educational keny from [employer]. Physical exam (Primary Care) Vital Signs: Last Vital Signs Pulse 80 02/20/25 12:37 BP 120/64 02/20/25 12:37 Pulse Ox 97 02/20/25 12:37 Oxygen Delivery Method Room Air 02/20/25 12:37 BMI result Body Mass Index 38.4 Tobacco/Smoking Status: Tobacco use Status Tobacco use date assessed 02/20/25 02/20/25 12:39 Patient Tobacco Use Status Former Tobacco user 02/20/25 12:39 Tobacco use type Cigarette 02/20/25 12:39 e-Cigarette/Vaping Use Never Used 02/20/25 12:39 Thrive Assessment: Date of Thrive Assessment Date Thrive assessed 02/20/25 02/20/25 12:44 Currently or been in a relationship where the following occur: No concerns reported Coding Level of Care Code Est Pt Level 4 (10592) Complex EM visit Add On G2211 Diagnoses Diabetes 1.5, managed as type 2 E13.9 Seborrheic dermatitis L21.9 Hypertension, essential I10 Other specified hypothyroidism E03.8 Recurrent major depressive disorder, in partial remission F33.41 Active/Remission status: in partial remission Anxiety, generalized F41.1 Microalbuminuria R80.9 Assessment & Plan Assessment & Plan (1) Diabetes 1.5, managed as type 2: Code(s): E13.9 - Other specified diabetes mellitus without complications Category: Medical (2) Seborrheic dermatitis: Code(s): L21.9 - Seborrheic dermatitis, unspecified Category: Medical (3) Hypertension, essential: Code(s): I10 - Essential (primary) hypertension Category: Medical (4) Other specified hypothyroidism: Code(s): E03.8 - Other specified hypothyroidism Category: Medical (5) Depression, major, recurrent: Code(s): F33.9 - Major depressive disorder, recurrent, unspecified Category: Medical Qualifiers: Active/Remission status: in partial remission Qualified Code(s): F33.41 - Major depressive disorder, recurrent, in partial remission (6) Anxiety, generalized: Code(s): F41.1 - Generalized anxiety disorder Category: Medical (7) Microalbuminuria: Code(s): R80.9 - Proteinuria, unspecified Category: Medical Plan History - The patient is a 59-year-old female presenting with medication management and blood work. - Essential Hypertension: The patient reports excellent control of her blood pressure. She is prescribed atenolol and irbesartan hydrochlorothiazide for management. The patient mentioned occasional noncompliance but currently reports her blood pressure is well-controlled. - Compromised Kidney Function: The patient recalls compromised kidney function identified in previous tests conducted in November. Labs were intended to be repeated but were delayed due to non-fasting at the last scheduled test. - Hyperlipidemia: The patient is on Ezetimibe for hyperlipidemia management. - seborrheic dermatitis: The patient mentions skin lesions at the base of her neck and behind her ear, treated with ketoconazole shampoo it has improved however patient would like to see a air export logistics manager Referral placed Medications - Atenolol 25 mg ? Managed for Essential Hypertension - Bupropion ? Indication not specified in conversation - Ezetimibe ? Managed for Hyperlipidemia - Fenofibrate ? Indication not specified in conversation - Fluoxetine ? Indication not specified in conversation - Irbesartan Hydrochlorothiazide ? Managed for Essential Hypertension - Levothyroxine 75 mg ? Indication not specified in conversation - Metformin ? Indication not specified in conversation Problem List - Essential Hypertension - Compromised Kidney Function - Hyperlipidemia - seborrheic dermatitis - obesity - depression and anxiety treated by Psychiatry Patient Instructions - You can have all your blood tests done right now, even if you haven?t fasted. - Continue using your prescribed medications as directed. - Keep using the medicated shampoo for skin lesions until improvements are noted. - refill for Ezetimibe sent - Continue to manage your blood pressure as instructed and monitor your adherence to medications. - Dermatology referral placed Orders: Referrals Dermatology Referral L21.9 - Seborrheic dermatitis, unspecified Medications: Refilled ezetimibe 10 mg PO DAILY 90 days 90 tabs 0RF ketoconazole 2% 1 appl topical 3XW 30 days 120 mL 2RF
== END 2025-02-20 12:57 | disposition home or self-care (01) ==
PROVIDERS: PCP Internal Medicine; Visit Provider Internal Medicine
DX: E13.9 Other specified diabetes mellitus without complications (principal); L21.9 Seborrheic dermatitis, unspecified; I10 Essential (primary) hypertension; E03.8 Other specified hypothyroidism; F33.41 Major depressive disorder, recurrent, in partial remission; F41.1 Generalized anxiety disorder; R80.9 Proteinuria, unspecified

== ENCOUNTER 2025-02-20 12:36 | Outpatient (REF) | payer MEDICARE, SELFPAY ==
[2025-02-20 16:12] LABS: MANUAL DIFF FLAG NO
[2025-02-20 16:25] LABS: Basophils Percent Auto 0.6 % (0-2); Eosinophils Absolute Auto 0.1 X10*3/uL (0.0-0.4); Eosinophils Percent Auto 2.1 % (0-4); Hematocrit 39.8 % (37.0-47.0); Hemoglobin 13.1 g/dl (12.0-16.0); Imm Gran Abs Auto 0.03 X10*3/uL (0.00-0.03); Imm Gran Pct Auto 0.5 % (0.0-0.4); Lymphocytes Absolute Auto 2.3 X10*3/uL (1.2-4.9); Lymphocytes Percent Auto 35.7 % (20-40); Mean Corpuscular HGB Conc 32.9 g/dl (31.0-35.0); Mean Corpuscular Hemoglobin 28.3 pg (27.0-33.0); Mean Platelet Volume 9.6 fL (9.4-12.3); Monocytes Absolute Auto 0.8 X10*3/uL (0.1-1.2); Monocytes Percent Auto 11.8 % (2-11); Neutrophils Absolute Auto 3.2 x10*3/uL (2.0-8.3); Neutrophils Percent Auto 49.3 % (45-73); Platelet Count 445 X10*3/uL (160-400); Red Blood Count 4.63 X10*6/uL (4.20-5.50); Red Cell Distribution Width 13.8 % (11.0-16.0); White Blood Count 6.5 X10*3/uL (4.8-10.8)
[2025-02-20 16:29] LABS: Estimated Average Glucose 154 mg/dL
[2025-02-20 17:38] LABS: Alanine Aminotransferase 25 U/L (0-31); Albumin Level 4.3 g/dL (3.5-5.0); Anion Gap 13 (12-20); Aspartate Amino Transferase 25 U/L (5-31); Bilirubin Total 0.2 mg/dL (0.0-1.0); Blood Urea Nitrogen 22 mg/dL (9-16); Calcium 9.6 mg/dL (8.4-10.2); Carbon Dioxide 26 mmol/L (22-29); Chloride 102 mmol/L (96-108); Estimated Glomerular Filt Rate 54; Glucose Random 154 mg/dL (60-115); Sodium 137 mmol/L (135-145); Total Protein 7.3 g/dL (6.5-8.0)
[2025-02-20 17:55] LABS: Alkaline Phosphatase 52 U/L (39-117); TSH reflex Free T4 3.55 uIU/mL (0.32-4.0)
[2025-02-22 13:54] LABS: LDL Cholesterol Direct 137 mg/dL (<100)
== END 2025-02-20 12:37 | disposition home or self-care (01) ==
LOC: HO.HMGCLDS 12:36
PROVIDERS: PCP Internal Medicine; Visit Provider Internal Medicine
DX: E13.9 Other specified diabetes mellitus without complications (principal); L21.9 Seborrheic dermatitis, unspecified; I10 Essential (primary) hypertension; E03.8 Other specified hypothyroidism; F33.41 Major depressive disorder, recurrent, in partial remission; F41.1 Generalized anxiety disorder; R80.9 Proteinuria, unspecified; Z79.899 Other long term (current) drug therapy
CPT/HCPCS: 36415; 80053; 83036; 83721; 84443; 85025; 99212

== ENCOUNTER 2025-02-24 10:59 | Outpatient (AMB) | payer MEDICARE, SELFPAY ==
[2025-02-24 11:04] VITALS: BMI 38.3
--- NOTE | 2025-02-24 11:04 | MHC.OFFVIS ---
Vital Signs 02/24/25 11:04 Height 5 ft 5 in Weight 230 lb BMI 38.3 Intake Visit Reasons: OV- RT knee 11/21/24 Intake Note: Malik is a 59 year old female who presents today post-operatively after undergoing right knee arthroscopy on 11/21/24. Patient reports she continues going to physical therapy. Patient states her knee is doing much better since her last visit. Patient continues taking Ibuprofen PRN with relief. She is due to complete formal physical therapy later this week. Allergies amlodipine Allergy (Unknown, Verified 02/24/25 11:04) unknown contact metal agent Allergy (Unknown, Verified 02/24/25 11:04) Skin breakout lisinopril [LISINOPRIL] Allergy (Unknown, Verified 02/24/25 11:04) COUGH nickel [NICKEL] Allergy (Unknown, Verified 02/24/25 11:04) HIVES Medication List - Last Reconciled 02/24/25 by Clemente Stewart MD atenolol 25 mg PO DAILY bupropion HCl XL mg PO ezetimibe 10 mg PO DAILY 90 days fenofibrate 160 mg PO DAILY 90 days fluoxetine mg PO ibuprofen 800 mg PO Q12H PRN irbesartan-hydrochlorothiazide 300-12.5 mg 1 tab PO DAILY 90 days ketoconazole 2% 1 appl topical 3XW 30 days levothyroxine 75 mcg PO DAILY 90 days metformin 500 mg PO ONCE 90 days PFSH Medical History Obstructive sleep apnea Obesity Obstructive sleep apnea on CPAP Diabetes 1.5, managed as type 2 Anxiety, generalized Depression, major, recurrent Other specified hypothyroidism Hypertension, essential Surgical History History of ear surgery History of colonoscopy Family History Son No problems noted. Son No problems noted. Brother Colon cancer Other Adopted Social History Housing: House Alcohol intake: never Patient Tobacco Use Status: Former Tobacco user Tobacco use type: Cigarette Years Smoked: since age 11 e-Cigarette/Vaping Use: Never Used service: No Current occupational status: employed and disabled Current occupation: rt handed Cognitive needs: No Hearing needs: No Vision needs: Yes Female Reproductive History Menstrual Age of Menarche: 11 Physical Exam Vital Signs: BMI result Body Mass Index 38.3 Const Other: Well-nourished well-developed very friendly female awake alert and oriented x3 in no acute distress Extrem Other: Right knee examination shows that the surgical incisions are well healed, no erythema, minimal crepitus with range of motion, minimal discomfort with range of motion Assessment & Plan Assessment & Plan (1) Right knee pain: Code(s): M25.561 - Pain in right knee Category: Medical Plan Ms. Fisher continues to do well after undergoing right knee arthroscopic surgery on 11/21/2024. She will complete formal physical therapy later this week as scheduled. She will then transition to a home exercise program. She will follow up with me on an as-needed basis should her symptoms not plateau at an unacceptable level over the next few months. Feel free to call me at any time should questions regarding her orthopedic management arise. I spent 20 minutes in reviewing the patient's records and imaging studies, seeing the patient and documenting in the medical record. Coding Level of Care Code Est Pt Level 3 (40209) Complex EM visit Add On G2211 Diagnoses Right knee pain M25.561
== END 2025-02-24 11:27 | disposition home or self-care (01) ==
LOC: HO.HOS 11:00
PROVIDERS: PCP Internal Medicine; Visit Provider Orthopaedic Surgery
DX: M25.561 Pain in right knee (principal)
CPT/HCPCS: 99213; G2211

== ENCOUNTER → 2025-02-24 10:59 | Outpatient (BNVA) | payer MEDICARE, SELFPAY | PROVIDERS: PCP Internal Medicine; Visit Provider Orthopaedic Surgery | DX: M25.561 Pain in right knee (principal) | CPT/HCPCS: 99212 ==

== ENCOUNTER 2025-02-27 14:00 | Outpatient (RCR) | payer MEDICARE, MEDICAID, SELFPAY ==
--- NOTE | 2024-12-12 12:26 | MHC.PT.EP ---
[facility] [place] Office [place] Office [place] Office [address] [phone] F: [phone] F: [phone] F: [phone] F: [phone] Physical Therapy Plan of Care Date of Evaluation: 12/12/24 Date of Surgery: 11/21/2024 Diagnosis: Right knee diagnostic arthroscopy with right knee arthroscopic partial medial meniscectomy, right knee arthroscopic chondroplasty of the undersurface of the patella and medial femoral condyle, W DR MCDOWELL Assessment: 59 YO FEMALE REF TO PT S/P Rt PARTIAL MEDIAL MENISCECTOMY AND CHONDROPLASTY W DR MCDOWELL ON 11/21/24. SHE WAS GOING TO THE GYM 2x WK PRIOR TO HER SURGERY. SHE IS MOTIVATED FOR PT AND IS CURRENTLY AMB W/O ASST DEVICES- SHE RESIDES IN [address]ND FLOOR [place] [address] AND HER SONS ASSIST W ADLs PRN. THE Pt HAS Rt KNEE TERMINAL KNEE EXT DEFICITS, ALTERED GAIT, DECR CORE/ Rt LE STRENGTH, TIGHT LATERAL PATELLA, AND FLUCTUATING DISCOMFORT IN Rt KNEE-> ESPEC LATERALLY. FUNCTIONALLY, THE Pt HAS DIFFIC W STAIR NAVIGATION, PROLONGED AMB, AND BENDING. SHE IS MOTIVATED FOR PT AND AGREES W PT POC. Frequency and Duration: The patient will be seen 2 x WK x 5 WKS Short Term Goals: DECR Rt KNEE PAIN IMPROVE Rt TERMINAL KNEE EXT DEV HEP-> ADDRESS ROM, PROPRIOCEPTION, STAB INDEP PATELLAR MOBS Longterm Goals: Pt DISPLAY EFFICIENT GAIT MECHANICS ON LEVEL GROUND AND STAIRS INDEP W HEP Rt LE SLS x 15 SEC Pt RESUME REG ADLs EVIDENT W IMPROVED LEFI (AT EVAL 26/) WNL STRENGTH Rt LE AND LUMBOPELVIC STAB Treatment Plan: Modalities to reduce pain, spasms and effusion. Manual therapy to restore motion and function. Therapeutic exercise to improve strength and flexibility. Neuromuscular re-education for posture and balance. Therapeutic activities to return to functional activities of daily living. Electronically signed by: LUIS A RAMIREZ,PT Please sign and return to therapist. Thank you for your referral.
--- NOTE | 2025-03-02 07:47 | MHC.PT.DC ---
[facility] [place] Office [place] Office [place] [facility] [address] Criselda Tristan [address] [facility] [phone] F: [phone] F: [phone] F: [phone] F: [phone] Physical Therapy Discharge Report Diagnosis: Right knee diagnostic arthroscopy with right knee arthroscopic partial medial meniscectomy, right knee arthroscopic chondroplasty of the undersurface of the patella and medial femoral condyle, W DR MCDOWELL Date of Surgery: 11/21/2024 Date of Evaluation: 12/12/24 Date of Discharge: 03/02/25 Treatments to Date: 21 Cancellations to Date: No Shows to Date: 1 Discharge Status: Achieved Goals Improved Function Independent with HEP Discharge Summary: STEPHANIE HAS PROGRESSED VERY WELL IN PT IN HER POST-OP COURSE- SHE HAS A THOROUGH HEP AND HAS MET HER PT GOALS, ESPEC FOR ROM, PAIN/SX MGMT, AND STRENGTH IN HER Rt LE -> SHE HAS IMPROVED AWARENESS RE CORE ENGAGEMENT. HER LEFI AT D/C WAS 57/80, AT HER INITIAL EVAL, . Electronically signed by: LUIS A RAMIREZ,PT Please sign and return to therapist. Thank you for your referral.
== END 2025-03-02 07:48 | disposition home or self-care (01) ==
LOC: HO.PT 14:00
PROVIDERS: PCP Internal Medicine; Visit Provider Physician Assistant
DX: S83.241S Other tear of medial meniscus, current injury, right knee, sequela (principal)
CPT/HCPCS: 97110; 97112; 97140; 97162; 97530

== ENCOUNTER 2025-04-30 10:39 | Outpatient (AMB) | payer MEDICARE, SELFPAY ==
--- NOTE | 2025-04-30 10:52 | MHC.OFFVIS ---
Vital Signs 04/30/25 10:55 Height 5 ft 5 in Weight 230 lb BMI 38.3 Intake Visit Reasons: OV- RT knee 11/21/24 DR Intake Note: Malik is a 59 year old female who presents with complaints of mild intermittent discomfort in her right knee after undergoing right knee arthroscopic surgery on 11/21/2024. The patient states that she has been riding the stationary bike at the gym for exercise. She did feel a ?pop in her right knee while stretching recently. She questions whether or not walking on a track would be beneficial. Allergies amlodipine Allergy (Unknown, Verified 04/30/25 10:54) unknown contact metal agent Allergy (Unknown, Verified 04/30/25 10:54) Skin breakout lisinopril (LISINOPRIL) Allergy (Unknown, Verified 04/30/25 10:54) COUGH nickel (NICKEL) Allergy (Unknown, Verified 04/30/25 10:54) HIVES Medication List - Last Reconciled 04/30/25 by Clemente Stewart MD atenolol 25 mg PO DAILY bupropion HCl XL mg PO ezetimibe 10 mg PO DAILY 90 days fenofibrate 160 mg PO DAILY 90 days fluoxetine mg PO ibuprofen 800 mg PO Q12H PRN irbesartan-hydrochlorothiazide 300-12.5 mg 1 tab PO DAILY 90 days ketoconazole 2% 1 appl topical 3XW 30 days levothyroxine 75 mcg PO DAILY 90 days metformin 500 mg PO ONCE 90 days PFSH Medical History Obstructive sleep apnea Obesity Obstructive sleep apnea on CPAP Diabetes 1.5, managed as type 2 Anxiety, generalized Depression, major, recurrent Other specified hypothyroidism Hypertension, essential Surgical History History of ear surgery History of colonoscopy Family History Son No problems noted. Son No problems noted. Brother Colon cancer Other Adopted Social History Housing: House Alcohol intake: never Patient Tobacco Use Status: Former Tobacco user Tobacco use type: Cigarette Years Smoked: since age 11 e-Cigarette/Vaping Use: Never Used service: No Current occupational status: employed and disabled Current occupation: rt handed Cognitive needs: No Hearing needs: No Vision needs: Yes Female Reproductive History Menstrual Age of Menarche: 11 Physical Exam Vital Signs: BMI result Body Mass Index 38.3 Extrem Other: Right knee examination shows that the surgical incisions are well healed, minimal crepitus with range of motion Assessment & Plan Assessment & Plan (1) Arthritis of right knee: Code(s): M17.11 - Unilateral primary osteoarthritis, right knee Category: Medical Plan Ms. Fisher presents with intermittent right knee discomfort after undergoing arthroscopic surgery on 11/21/2024 most likely due to early degenerative joint disease. We will hold off on a cortisone injection for now. The patient will continue riding the stationary bike at the gym for exercise. I have no problem with her walking a track for exercise as long as this does not cause her significant increase in her discomfort. The patient may be a candidate for a viscosupplementation injection if her discomfort continues. I will see her back in 2 months' time for repeat clinical examination. I spent 22 minutes in reviewing the patient's records and imaging studies, seeing the patient and documenting in the medical record. Coding Level of Care Code Est Pt Level 3 (00527) Complex EM visit Add On G2211 Diagnoses Arthritis of right knee M17.11
[2025-04-30 10:55] VITALS: BMI 38.3
== END 2025-04-30 11:07 | disposition home or self-care (01) ==
LOC: HO.HOS 10:39
PROVIDERS: PCP Internal Medicine; Visit Provider Orthopaedic Surgery
DX: M17.11 Unilateral primary osteoarthritis, right knee (principal)
CPT/HCPCS: 99213; G2211

== ENCOUNTER → 2025-04-30 10:39 | Outpatient (BNVA) | payer MEDICARE, SELFPAY | PROVIDERS: PCP Internal Medicine; Visit Provider Orthopaedic Surgery | DX: M17.11 Unilateral primary osteoarthritis, right knee (principal) | CPT/HCPCS: 99212 ==

== ENCOUNTER 2025-05-26 11:08 | Outpatient (AMB) | payer MEDICARE, SELFPAY ==
[2025-05-26 11:12] VITALS: BP 120/70; PULSE 78; O2SAT 97; BMI 38.4
--- NOTE | 2025-05-26 11:12 | A.OFFPC_ITS ---
Vital Signs 05/26/25 11:12 Height 5 ft 5 in Weight 231 lb BMI 38.4 BP 120/70 Blood Pressure Location Rt brachial Position Sitting Pulse 78 Pulse Source Pulse Oximeter Pulse Oximetry (%) 97 Oxygen Delivery Method Room Air Intake Visit Reasons: 3 months f/up Allergies amlodipine Allergy (Unknown, Verified 05/26/25 11:13) unknown contact metal agent Allergy (Unknown, Verified 05/26/25 11:13) Skin breakout lisinopril (LISINOPRIL) Allergy (Unknown, Verified 05/26/25 11:13) COUGH nickel (NICKEL) Allergy (Unknown, Verified 05/26/25 11:13) HIVES Medication List - Last Reconciled 05/26/25 by Tony Wilson MD atenolol 25 mg PO DAILY bupropion HCl XL mg PO ezetimibe 10 mg PO DAILY 90 days fenofibrate 160 mg PO DAILY 90 days fluoxetine mg PO ibuprofen 800 mg PO Q12H PRN irbesartan-hydrochlorothiazide 300-12.5 mg 1 tab PO DAILY 90 days levothyroxine 75 mcg PO DAILY 90 days metformin 500 mg PO ONCE 90 days Tobacco use date assessed: 02/20/25 Dental Screening Dental Screen Date: 02/20/25 HPI 3 months f/up HPI Details Chief Complaint Patient presents for management of type 2 diabetes mellitus and hypertension, with considerations for weight management interventions. History The patient is a 59-year-old female presenting with management of type 2 diabetes mellitus. Type 2 Diabetes Mellitus: - Diagnosed previously and managed by an senior cost analyst. - Current Hemoglobin A1c is 6.8, showing improvement from the previous reading of 7.0 in February. - Periods of difficulty managing dietary intake, challenges in portion control, and frequent consumption of calorie-dense foods. - Interest in weight loss medication opt ions to manage the condition. Hypertension: - Longstanding history, currently well-c ontrolled on medication. - Contributing factor to slight kidney f unction compromise, with previously recorded glomerular filtration rate (GFR) of 54. - Current blood pressure registered at . Chronic Kidney Disease (CKD), Stage 3: - Detected in follow-up lab work with GF R status noted during February appointment. - Chronic nature attributed to longstand ing hypertension per prior assessments. Medical History: - Hypertension with well-controlled bloo d pressure. - Type 2 Diabetes Mellitus with improved glucose control. - Chronic Kidney Disease, Stage 3 second jaguar to hypertension. - Depression and anxiety, managed by rhoda moreno. Surgical History: - Lumbar surgery. Medications: - Atenolol 25 mg for hypertension. - Bupropion for depression. - Fluoxetine for depression and anxiety. - Hydrochlorothiazide for hypertension. - Levothyroxine for euthyroid status. - Metformin for type 2 diabetes mellitus management. - Zetia (Ezetimibe), likely prescribed f or hyperlipidemia. Social History: - Dietary patterns include the consumpti on of calorie-dense foods in high quantities. - Engages in regular exercise approximat miroslava twice a week. - Previously underwent knee surgery, aff ecting her mobility. - Exercises at [employer] and particip ates in swimming for joint health. - Expresses difficulties with weight man agement and portion control. Problem List - Type 2 Diabetes Mellitus - Hypertension - Chronic Kidney Disease, Stage 3 - Depression - Anxiety -obesity with BMI of 38.4 Diagnostic results - Labs: Hemoglobin A1c at 6.8; GFR 54 in February; CBC normal; Electrolytes normal. Medication Management - Start of Semaglutide injections discus sed for weight loss and diabetes management pending insurance coverage. - Prior medications include atenolol, bu propion, fluoxetine, hydrochlorothiazide, levothyroxine, metformin, and Zetia. - Possible side effects of Semaglutide i ncluding nausea and minimal risk of thyroid cancer discussed. - Concerns about burden on kidneys and l iver were addressed. Patient Instructions - Follow diet recommendations with small er portions and wholesome meals. - Increase physical activity, consider s wimming for joint-friendly exercise. 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 - Schedule appointment with the nurse yudi caldwell instruction on injection. - Monitor blood glucose levels at home a nd maintain regular appointments for follow-up lab work. - Report any adverse effects from new me dication promptly. Review of Systems General: No fever no chills neurological: No headaches no dizziness ear nose throat: No sore throat no hearing difficulty no ear pain cardiovascular: No syncope, no chest pain, no palpitations gastrointestinal: No nausea vomiting or diarrhea endocrine: No polyuria polydipsia no heat intolerance genitourinary: No dysuria skin: No new complaints Physical Exam general: No acute distress HEENT: No acute findings neck: Supple respiratory system: Lungs are clear, able to talk in full sentences, no audible wheeze, no stridor cardiovascular: S1-S2 RRR, heart is fine gastrointestinal: No pain extremities: No swelling of ankles BULL BUCKER: Alert awake oriented x3 motor sensory intact skin: Normal turgor PFSH Medical History Obstructive sleep apnea Obesity Obstructive sleep apnea on CPAP Diabetes 1.5, managed as type 2 Anxiety, generalized Depression, major, recurrent Other specified hypothyroidism Hypertension, essential Surgical History History of ear surgery History of colonoscopy Family History Son No problems noted. Son No problems noted. Brother Colon cancer Other Adopted Social History Housing: House Alcohol intake: never Patient Tobacco Use Status: Former Tobacco user Tobacco use type: Cigarette Years Smoked: since age 11 e-Cigarette/Vaping Use: Never Used service: No Current occupational status: employed and disabled Current occupation: rt handed Cognitive needs: No Hearing needs: No Vision needs: Yes Female Reproductive History Menstrual Age of Menarche: 11 Questionnaire Thrive Questionnaire Date Thrive assessed: 11/25/24 I am a: Patient What is your living situation today?: I choose not to answer this question Within the past 12 months, did the food you bought not last and you didn't have the money to get more?: I choose not to answer this question Within the past 12 months, did you worry whether your food would run out before you got money to buy more?: I choose not to answer this question Do you have trouble paying for medicines?: No Do you have trouble getting transportation to medical appointments?: No Do you have trouble paying your heating and electricity bill?: I choose not to answer this question Do you have trouble taking care of your child, family member or friend?: I choose not to answer this question THRIVE Score: 0 [place]-7 AMB Questionnaire [place]-7 Date [place] - 7 assessed: 11/25/24 Source: Developed by Drs. Ezra Valdez, Miley Kulkarni, Jovanny Lainez and colleagues, with an educational keny from [email or web address]. Physical exam (Primary Care) Vital Signs: Last Vital Signs Pulse 78 05/26/25 11:12 BP 120/70 05/26/25 11:12 Pulse Ox 97 05/26/25 11:12 Oxygen Delivery Method Room Air 05/26/25 11:12 BMI result Body Mass Index 38.4 Tobacco/Smoking Status: Tobacco use Status Tobacco use date assessed 02/20/25 05/26/25 11:13 Patient Tobacco Use Status Former Tobacco user 05/26/25 11:13 Tobacco use type Cigarette 05/26/25 11:13 e-Cigarette/Vaping Use Never Used 05/26/25 11:13 Thrive Assessment: Date of Thrive Assessment Date Thrive assessed 11/25/24 05/26/25 11:13 Results AMB Hemoglobin A1c AMB Hemoglobin A1c 6.8 % Last Edit by Crescencio Law CMA on 05/26/25 11: 48 Results Reviewed Results Reviewed: Laboratory Last Values Hgb A1c (Clinic) 6.8 % (4.0-6.0) H 05/26/25 11:47 Coding Level of Care Code Est Pt Level 4 (72073) Complex EM visit Add On G2211 Diagnoses Diabetes 1.5, managed as type 2 E13.9 Hypertension, essential I10 Other specified hypothyroidism E03.8 Class 2 severe obesity due to excess calories with serious comorbidity and body mass index (BMI) of 37.0 to 37.9 in adult E66.01; Z68.37 Body mass index: BMI 37.0-37.9 Obesity classification: adult class 2 (BMI 35 - 39.9) Serious obesity comorbidity presence: with serious comorbidity Seborrheic dermatitis L21.9 Recurrent major depressive disorder, in partial remission F33.41 Active/Remission status: in partial remission Anxiety, generalized F41.1 Microalbuminuria R80.9 Assessment & Plan Assessment & Plan (1) Diabetes 1.5, managed as type 2: Code(s): E13.9 - Other specified diabetes mellitus without complications Category: Medical (2) Hypertension, essential: Code(s): I10 - Essential (primary) hypertension Category: Medical (3) Other specified hypothyroidism: Code(s): E03.8 - Other specified hypothyroidism Category: Medical (4) Obesity due to excess calories: Code(s): E66.09 - Other obesity due to excess calories Category: Medical Qualifiers: Body mass index: BMI 37.0-37.9 Obesity classification: adult class 2 (BMI 35 - 39.9) Serious obesity comorbidity presence: with serious comorbidity Qualified Code(s): E66.01 - Morbid (severe) obesity due to excess calories; Z68.37 - Body mass index [BMI] 37.0-37.9, adult (5) Seborrheic dermatitis: Code(s): L21.9 - Seborrheic dermatitis, unspecified Category: Medical (6) Depression, major, recurrent: Code(s): F33.9 - Major depressive disorder, recurrent, unspecified Category: Medical Qualifiers: Active/Remission status: in partial remission Qualified Code(s): F33.41 - Major depressive disorder, recurrent, in partial remission (7) Anxiety, generalized: Code(s): F41.1 - Generalized anxiety disorder Category: Medical (8) Microalbuminuria: Code(s): R80.9 - Proteinuria, unspecified Category: Medical Plan Chief Complaint Patient presents for management of type 2 diabetes mellitus and hypertension, with considerations for weight management interventions. History The patient is a 59-year-old female presenting with management of type 2 diabetes mellitus. Type 2 Diabetes Mellitus: - Diagnosed previously and managed by an senior cost analyst. - Current Hemoglobin A1c is 6.8, showing improvement from the previous reading of 7.0 in February. - Periods of difficulty managing dietary intake, challenges in portion control, and frequent consumption of calorie-dense foods. - Interest in weight loss medication options to manage the condition. Hypertension: - Longstanding history, currently well-controlled on medication. - Contributing factor to slight kidney function compromise, with previously recorded glomerular filtration rate (GFR) of 54. - Current blood pressure registered at 120/70. Chronic Kidney Disease (CKD), Stage 3: - Detected in follow-up lab work with GFR status noted during February appointment. - Chronic nature attributed to longstanding hypertension per prior assessments. Medical History: - Hypertension with well-controlled blood pressure. - Type 2 Diabetes Mellitus with improved glucose control. - Chronic Kidney Disease, Stage 3 secondary to hypertension. - Depression and anxiety, managed by psychiatry. Surgical History: - Lumbar surgery. Medications: - Atenolol 25 mg for hypertension. - Bupropion for depression. - Fluoxetine for depression and anxiety. - Hydrochlorothiazide for hypertension. - Levothyroxine for euthyroid status. - Metformin for type 2 diabetes mellitus management. - Zetia (Ezetimibe), likely prescribed for hyperlipidemia. Social History: - Dietary patterns include the consumption of calorie-dense foods in high quantities. - Engages in regular exercise approximately twice a week. - Previously underwent knee surgery, affecting her mobility. - Exercises at [employer] and participates in swimming for joint health. - Expresses difficulties with weight management and portion control. Problem List - Type 2 Diabetes Mellitus - Hypertension - Chronic Kidney Disease, Stage 3 - Depression - Anxiety -obesity with BMI of 38.4 Diagnostic results - Labs: Hemoglobin A1c at 6.8; GFR 54 in February; CBC normal; Electrolytes normal. Medication Management - Start of Semaglutide injections discussed for weight loss and diabetes management pending insurance coverage. - Prior medications include atenolol, bupropion, fluoxetine, hydrochlorothiazide, levothyroxine, metformin, and Zetia. - Possible side effects of Semaglutide including nausea and minimal risk of thyroid cancer discussed. - Concerns about burden on kidneys and liver were addressed. Patient Instructions - Follow diet recommendations with smaller portions and wholesome meals. - Increase physical activity, consider swimming for joint-friendly exercise. 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 - Schedule appointment with the nurse for instruction on injection. - Monitor blood glucose levels at home and maintain regular appointments for follow-up lab work. - Report any adverse effects from new medication promptly. Orders: Orders Basic Metabolic Panel Today E03.8 - Other specified hypothyroidism, E13.9 - Other specified diabetes mellitus without complications, E66.01 - Morbid (severe) obesity due to excess calories, I10 - Essential (primary) hypertension, Z68.37 - Body mass index [BMI] 37.0-37.9, adult TSH reflex Free T4 Today E03.8 - Other specified hypothyroidism, E13.9 - Other specified diabetes mellitus without complications, E66.01 - Morbid (severe) obesity due to excess calories, I10 - Essential (primary) hypertension, Z68.37 - Body mass index [BMI] 37.0-37.9, adult Lipase Today E03.8 - Other specified hypothyroidism, E13.9 - Other specified diabetes mellitus without complications, E66.01 - Morbid (severe) obesity due to excess calories, I10 - Essential (primary) hypertension, Z68.37 - Body mass index [BMI] 37.0-37.9, adult Amylase Today E03.8 - Other specified hypothyroidism, E13.9 - Other specified diabetes mellitus without complications, E66.01 - Morbid (severe) obesity due to excess calories, I10 - Essential (primary) hypertension, Z68.37 - Body mass index [BMI] 37.0-37.9, adult AMB Hemoglobin A1c Today Z13.9 - Encounter for screening, unspecified Medications: New semaglutide for 4 weeks 0.25 mg (0.368 mL) subcut QWEEK 30 days 2 mL 0RF semaglutide for 4 weeks 0.25 mg (0.368 mL) subcut QWEEK 3.312 mL 0RF 60 days semaglutide for 4 weeks 0.25 mg (0.368 mL) subcut QWEEK 60 days 3.312 mL 0RF
== END 2025-05-26 11:46 | disposition home or self-care (01) ==
LOC: HO.HMCC 11:09
PROVIDERS: PCP Internal Medicine; Visit Provider Internal Medicine
DX: E13.9 Other specified diabetes mellitus without complications (principal); I10 Essential (primary) hypertension; E03.8 Other specified hypothyroidism; E66.01 Morbid (severe) obesity due to excess calories; Z68.37 Body mass index [BMI] 37.0-37.9, adult; L21.9 Seborrheic dermatitis, unspecified; F33.41 Major depressive disorder, recurrent, in partial remission; F41.1 Generalized anxiety disorder; R80.9 Proteinuria, unspecified; Z13.9 Encounter for screening, unspecified

== ENCOUNTER 2025-05-26 11:08 | Outpatient (REF) | payer MEDICARE, SELFPAY ==
[2025-05-26 13:43] LABS: Amylase 72 U/L (28-100); Anion Gap 15 (12-20); Blood Urea Nitrogen 25 mg/dL (9-16); Calcium 9.5 mg/dL (8.4-10.2); Carbon Dioxide 25 mmol/L (22-29); Chloride 102 mmol/L (96-108); Estimated Glomerular Filt Rate 55; Lipase 34 U/L (8-78); Potassium 4.2 mmol/L (3.3-5.1); Sodium 138 mmol/L (135-145)
[2025-05-26 15:07] LABS: Free T4 (Free Thyroxine) 1.09 ng/dL (0.71-1.85)
== END 2025-05-26 11:09 | disposition home or self-care (01) ==
LOC: HO.HMGCLDS 11:08
PROVIDERS: PCP Internal Medicine; Visit Provider Internal Medicine
DX: E13.9 Other specified diabetes mellitus without complications (principal); E03.8 Other specified hypothyroidism; I10 Essential (primary) hypertension; E66.01 Morbid (severe) obesity due to excess calories; Z68.37 Body mass index [BMI] 37.0-37.9, adult; L21.9 Seborrheic dermatitis, unspecified; F33.41 Major depressive disorder, recurrent, in partial remission; F41.1 Generalized anxiety disorder; R80.9 Proteinuria, unspecified; Z87.891 Personal history of nicotine dependence
CPT/HCPCS: 36415; 80048; 82150; 83036; 83690; 84439; 84443; 99212

== ENCOUNTER 2025-06-17 13:02 | Outpatient (AMB) | payer MEDICARE, MEDICAID, SELFPAY ==
--- NOTE | 2025-06-17 13:03 | MHC.OFFVIS ---
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: No Accompanied by: Self / Same As Patient Allergies amlodipine Allergy (Unknown, Verified 06/17/25 13:04) unknown contact metal agent Allergy (Unknown, Verified 06/17/25 13:04) Skin breakout lisinopril (LISINOPRIL) Allergy (Unknown, Verified 06/17/25 13:04) COUGH nickel (NICKEL) Allergy (Unknown, Verified 06/17/25 13:04) HIVES Medication List - Last Reconciled 06/17/25 by Johanne Mayers MD atenolol 25 mg PO DAILY bupropion HCl XL mg PO ezetimibe 10 mg PO DAILY 90 days fenofibrate 160 mg PO DAILY 90 days fluoxetine mg PO ibuprofen 800 mg PO Q12H PRN irbesartan-hydrochlorothiazide 300-12.5 mg 1 tab PO DAILY 90 days levothyroxine 75 mcg PO DAILY 90 days metformin 500 mg PO ONCE 90 days semaglutide 0.25 mg (0.368 mL) subcut QWEEK 60 days HPI Comments Details: 59 y/o female patient presents for follow up of DYLAN on CPAP. The home sleep study result was significant for moderate degree of obstructive sleep apnea, the AHI 33/hr and mild degree of central sleep apnea YEE 7.3/hr with oxygen sarmad was 76%. APAP [id number] ordered. The CPAP compliance and therapy response (03/19/25-06/16/25) reviewed. she was travelling and could not use it for few days. The usage days 90 days of 90 days and the average usage hours 7 hrs 33 min. The max pressure was 13 and the residual AHI was 0.7/hr. Pt reports she is having better sleep routine, uses nasal pillow. She sleeps well with CPAP and wakes up refreshed. Daytime sleepiness has improved. [facility] Medical History Obstructive sleep apnea Obesity Obstructive sleep apnea on CPAP Diabetes 1.5, managed as type 2 Anxiety, generalized Depression, major, recurrent Other specified hypothyroidism Hypertension, essential Surgical History History of ear surgery History of colonoscopy Family History Son No problems noted. Son No problems noted. Brother Colon cancer Other Adopted Social History Housing: House Alcohol intake: never Patient Tobacco Use Status: Former Tobacco user Tobacco use type: Cigarette Years Smoked: since age 11 e-Cigarette/Vaping Use: Never Used service: No Current occupational status: employed and disabled Current occupation: rt handed Cognitive needs: No Hearing needs: No Vision needs: Yes Female Reproductive History Menstrual Age of Menarche: 11 Physical Exam Vital Signs: Last Vital Signs Pulse 88 06/17/25 13:04 BP 112/70 06/17/25 13:04 Pulse Ox 96 06/17/25 13:04 Oxygen Delivery Method Room Air 06/17/25 13:04 BMI result Body Mass Index 37.8 Const General: cooperative Orientation/consciousness: patient oriented x3 Limitations: no limitations Resp Effort & Inspection: normal respiratory effort and able to speak in complete sentences Neuro General: patient oriented x3, gait normal, moves all extremities and no focal motor deficits Cognition (Neuro): normal cognition Gait exam (Neuro): Normal gait present Psych Appearance: grossly normal Mental Status: mental status grossly normal Speech and movement: Normal speech and movement present Attitude: cooperative Assessment & Plan Assessment & Plan (1) Obstructive sleep apnea: Code(s): G47.33 - Obstructive sleep apnea (adult) (pediatric) Category: Medical Plan Continue AutoPAP 5-20 cm and follow up Compliance stressed Coding Level of Care Code Est Pt Level 4 (69353) Diagnoses Obstructive sleep apnea G47.33
[2025-06-17 13:04] VITALS: BP 112/70; PULSE 88; O2SAT 96; BMI 37.8
== END 2025-06-17 13:38 | disposition home or self-care (01) ==
LOC: HO.HSMS 13:03
PROVIDERS: PCP Internal Medicine; Visit Provider Psychiatry & Neurology Neurology
DX: G47.33 Obstructive sleep apnea (adult) (pediatric) (principal)
CPT/HCPCS: 99214

== ENCOUNTER → 2025-06-17 13:02 | Outpatient (BNVA) | payer MEDICARE, MEDICAID, SELFPAY | PROVIDERS: PCP Internal Medicine; Visit Provider Psychiatry & Neurology Neurology | DX: G47.33 Obstructive sleep apnea (adult) (pediatric) (principal); Z99.89 Dependence on other enabling machines and devices | CPT/HCPCS: 99212 ==

== ENCOUNTER 2025-06-26 12:11 | Outpatient (AMB) | payer MEDICARE, SELFPAY ==
--- NOTE | 2025-06-26 12:13 | A.OFFPC_ITS ---
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: No Accompanied by: Self / Same As Patient Allergies amlodipine Allergy (Unknown, Verified 06/26/25 12:17) unknown contact metal agent Allergy (Unknown, Verified 06/26/25 12:17) Skin breakout lisinopril (LISINOPRIL) Allergy (Unknown, Verified 06/26/25 12:17) COUGH nickel (NICKEL) Allergy (Unknown, Verified 06/26/25 12:17) HIVES Medication List - Last Reconciled 06/26/25 by Tony Wilson MD atenolol 25 mg PO DAILY bupropion HCl XL mg PO ezetimibe 10 mg PO DAILY 90 days fenofibrate 160 mg PO DAILY 90 days fluoxetine mg PO ibuprofen 800 mg PO Q12H PRN irbesartan-hydrochlorothiazide 300-12.5 mg 1 tab PO DAILY 90 days levothyroxine 75 mcg PO DAILY 90 days metformin 500 mg PO ONCE 90 days semaglutide 0.25 mg (0.368 mL) subcut QWEEK 60 days Tobacco use date assessed: 06/26/25 Dental Screening Dental Screen Date: 02/20/25 HPI weight loss med follow up HPI Details History The patient is a 59-year-old female presenting with management and adjustment of semaglutide dosage. Weight Management: - The patient started Ozempic (semagluti de) on May 26. - Initial weight was 231 pounds and the current weight is 226 pounds showing a weight loss of 5 pounds. - Noted fluctuation in weight, having be en as low as 223 pounds two days prior to the visit but gained weight after a large supper. - Reports adherence to a weekly dosage o f 0.25 mg of semaglutide every Sunday. - Expresses no adverse effects from the medication and is willing to continue usage due to the coverage. - Initially preferred a different medica tion (Zepbound) but continued with semaglutide due to lack of side effects. Medication Adherence and Pharmacy Preferences: - Expresses dissatisfaction with using [facility] pharmacy; prefers [facility] for prescription pick-ups. - Concerns about frequency of pharmacy v isits due to different due dates for various medication refills. - Uses several medications including tho se managed by a psychiatrist. Medical History: - Hypertension - Hypothyroidism - Type 2 Diabetes Mellitus - Hyperlipidemia - depression Medications: - Ozempic (Semaglutide) 0.25 mg once wee kly for weight loss - Metformin for Type 2 Diabetes Mellitus - Levothyroxine for Hypothyroidism - Hydrochlorothiazide for Hypertension - Fluoxetine (prescribed by psychiatrist , unspecified indication) - Atenolol for Hypertension - Zetia (Ezetimibe) for Hyperlipidemia - Fenofibrate for Hyperlipidemia Social History: - Discussed occasional food indulgence i mpacting weight management. Problem List - Type 2 Diabetes Mellitus - Hypertension - Hypothyroidism - Hyperlipidemia - Required adjustment of semaglutide dos age - depression treatment through [facility] - orthopedic appointment on the of the current month. - Monitored by a psychiatrist for mental health management. Patient Instructions - Continue taking semaglutide, with adju sted dose of 0.50 mg. - Monitor for potential nausea or vomiti ng with increased semaglutide dose. - Schedule follow-up in two months. - supervisor taping prescriptions from [facility] , refi lls provided for other medications as well Follow-up 2 months Review of Systems General: No fever no chills neurological: No headaches no dizziness ear nose throat: No sore throat no hearing difficulty no ear pain cardiovascular: No syncope, no chest pain, no palpitations gastrointestinal: No nausea vomiting or diarrhea endocrine: No polyuria polydipsia no heat intolerance genitourinary: No dysuria skin: No new complaints Physical Exam general: No acute distress HEENT: No acute findings neck: Supple, eczema noted on the back of the neck respiratory system: Able to talk in full sentences, no audible wheeze no stridor cardiovascular: S1-S2 RRR gastrointestinal: No pain extremities: No new findings WHARF TENDER HEAD: Alert awake oriented x3 motor sensory intact skin: Normal turgor, eczema noted around right ear, have appointment with the Dermatology coming up [facility] Medical History Obstructive sleep apnea Obesity Obstructive sleep apnea on CPAP Diabetes 1.5, managed as type 2 Anxiety, generalized Depression, major, recurrent Other specified hypothyroidism Hypertension, essential Surgical History History of ear surgery History of colonoscopy Family History Son No problems noted. Son No problems noted. Brother Colon cancer Other Adopted Social History Housing: House Alcohol intake: never Patient Tobacco Use Status: Former Tobacco user Tobacco use type: Cigarette Years Smoked: since age 11 e-Cigarette/Vaping Use: Never Used service: No Current occupational status: employed and disabled Current occupation: rt handed Cognitive needs: No Hearing needs: No Vision needs: Yes Female Reproductive History Menstrual Age of Menarche: 11 Questionnaire Thrive Questionnaire Date Thrive assessed: 11/25/24 I am a: Patient What is your living situation today?: I choose not to answer this question Within the past 12 months, did the food you bought not last and you didn't have the money to get more?: I choose not to answer this question Within the past 12 months, did you worry whether your food would run out before you got money to buy more?: I choose not to answer this question Do you have trouble paying for medicines?: No Do you have trouble getting transportation to medical appointments?: No Do you have trouble paying your heating and electricity bill?: I choose not to answer this question Do you have trouble taking care of your child, family member or friend?: I choose not to answer this question THRIVE Score: 0 [place]-7 AMB Questionnaire [place]-7 Date [place] - 7 assessed: 11/25/24 Source: Developed by Drs. Ezra Valdez, Miley Kulkarni, Jovanny Lainez and colleagues, with an educational keny from [employer]. Physical exam (Primary Care) Vital Signs: Last Vital Signs Pulse 80 06/26/25 12:15 BP 110/64 06/26/25 12:15 Pulse Ox 97 06/26/25 12:15 Oxygen Delivery Method Room Air 06/26/25 12:15 BMI result Body Mass Index 37.6 Tobacco/Smoking Status: Tobacco use Status Tobacco use date assessed 06/26/25 06/26/25 12:19 Patient Tobacco Use Status Former Tobacco user 06/26/25 12:14 Tobacco use type Cigarette 06/26/25 12:14 e-Cigarette/Vaping Use Never Used 06/26/25 12:14 Thrive Assessment: Date of Thrive Assessment Date Thrive assessed 11/25/24 06/26/25 12:14 Coding Level of Care Code Est Pt Level 4 (13952) Diagnoses Diabetes 1.5, managed as type 2 E13.9 Hypertension, essential I10 Other specified hypothyroidism E03.8 Class 2 severe obesity due to excess calories with serious comorbidity and body mass index (BMI) of 37.0 to 37.9 in adult E66.01; Z68.37 Obesity classification: adult class 2 (BMI 35 - 39.9) Serious obesity comorbidity presence: with serious comorbidity Body mass index: BMI 37.0-37.9 Recurrent major depressive disorder, in partial remission F33.41 Active/Remission status: in partial remission Assessment & Plan Assessment & Plan (1) Diabetes 1.5, managed as type 2: Code(s): E13.9 - Other specified diabetes mellitus without complications Category: Medical (2) Hypertension, essential: Code(s): I10 - Essential (primary) hypertension Category: Medical (3) Other specified hypothyroidism: Code(s): E03.8 - Other specified hypothyroidism Category: Medical (4) Obesity due to excess calories: Code(s): E66.09 - Other obesity due to excess calories Category: Medical Qualifiers: Obesity classification: adult class 2 (BMI 35 - 39.9) Serious obesity comorbidity presence: with serious comorbidity Body mass index: BMI 37.0-37.9 Qualified Code(s): E66.01 - Morbid (severe) obesity due to excess calories; Z68.37 - Body mass index [BMI] 37.0-37.9, adult (5) Depression, major, recurrent: Code(s): F33.9 - Major depressive disorder, recurrent, unspecified Category: Medical Qualifiers: Active/Remission status: in partial remission Qualified Code(s): F33.41 - Major depressive disorder, recurrent, in partial remission Plan History The patient is a 59-year-old female presenting with management and adjustment of semaglutide dosage. Weight Management: - The patient started Ozempic (semaglutide) on May 26. - Initial weight was 231 pounds and the current weight is 226 pounds showing a weight loss of 5 pounds. - Noted fluctuation in weight, having been as low as 223 pounds two days prior to the visit but gained weight after a large supper. - Reports adherence to a weekly dosage of 0.25 mg of semaglutide every Sunday. - Expresses no adverse effects from the medication and is willing to continue usage due to the coverage. - Initially preferred a different medication (Zepbound) but continued with semaglutide due to lack of side effects. Medication Adherence and Pharmacy Preferences: - Expresses dissatisfaction with using [facility] pharmacy; prefers [facility] for prescription pick-ups. - Concerns about frequency of pharmacy visits due to different due dates for various medication refills. - Uses several medications including those managed by a psychiatrist. Medical History: - Hypertension - Hypothyroidism - Type 2 Diabetes Mellitus - Hyperlipidemia - depression Medications: - Ozempic (Semaglutide) 0.25 mg once weekly for weight loss - Metformin for Type 2 Diabetes Mellitus - Levothyroxine for Hypothyroidism - Hydrochlorothiazide for Hypertension - Fluoxetine (prescribed by psychiatrist, unspecified indication) - Atenolol for Hypertension - Zetia (Ezetimibe) for Hyperlipidemia - Fenofibrate for Hyperlipidemia Social History: - Discussed occasional food indulgence impacting weight management. Problem List - Type 2 Diabetes Mellitus - Hypertension - Hypothyroidism - Hyperlipidemia - Required adjustment of semaglutide dosage - depression treatment through [facility] - orthopedic appointment on the of the current month. - Monitored by a psychiatrist for mental health management. Patient Instructions - Continue taking semaglutide, with adjusted dose of 0.50 mg. - Monitor for potential nausea or vomiting with increased semaglutide dose. - Schedule follow-up in two months. - supervisor taping prescriptions from [facility] , refills provided for other medications as well Follow-up 2 months Medications: Changed From semaglutide for 4 weeks 0.25 mg (0.368 mL) subcut QWEEK 60 days 3.312 mL 0RF To semaglutide for 4 weeks 0.5 mg (0.736 mL) subcut QWEEK 3.68 mL 1RF 30 days Refilled ezetimibe 10 mg PO DAILY 90 tabs 0RF 90 days irbesartan-hydrochlorothiazide 300-12.5 mg 1 tab PO DAILY 90 tabs 0RF 90 days metformin 500 mg PO ONCE 90 tabs 0RF 90 days atenolol 25 mg PO DAILY 90 tabs 0RF fenofibrate 160 mg PO DAILY 90 tabs 0RF 90 days levothyroxine 75 mcg PO DAILY 90 tabs 0RF 90 days
[2025-06-26 12:15] VITALS: BP 110/64; PULSE 80; O2SAT 97; BMI 37.6
== END 2025-06-26 13:03 | disposition home or self-care (01) ==
LOC: HO.HMCC 12:12
PROVIDERS: PCP Internal Medicine; Visit Provider Internal Medicine
DX: E13.9 Other specified diabetes mellitus without complications (principal); I10 Essential (primary) hypertension; E03.8 Other specified hypothyroidism; E66.01 Morbid (severe) obesity due to excess calories; Z68.37 Body mass index [BMI] 37.0-37.9, adult; F33.41 Major depressive disorder, recurrent, in partial remission

== ENCOUNTER → 2025-06-26 12:11 | Outpatient (BNVA) | payer MEDICARE, SELFPAY | PROVIDERS: PCP Internal Medicine; Visit Provider Internal Medicine | DX: E13.9 Other specified diabetes mellitus without complications (principal); I10 Essential (primary) hypertension; E03.8 Other specified hypothyroidism; E66.01 Morbid (severe) obesity due to excess calories; Z68.37 Body mass index [BMI] 37.0-37.9, adult; F33.41 Major depressive disorder, recurrent, in partial remission; Z79.84 Long term (current) use of oral hypoglycemic drugs; Z79.899 Other long term (current) drug therapy | CPT/HCPCS: 99212 ==

== ENCOUNTER 2025-08-28 12:16 | Outpatient (AMB) | payer MEDICARE, MEDICAID, SELFPAY ==
[2025-08-28 12:22] VITALS: BP 130/78; PULSE 92; O2SAT 98; BMI 36.4
--- NOTE | 2025-08-28 12:22 | A.OFFPC_ITS ---
Vital Signs 08/28/25 12:22 Height 5 ft 5 in Weight 219 lb BMI 36.4 BP 130/78 Blood Pressure Location Lt brachial Position Sitting Pulse 92 Pulse Source Pulse Oximeter Pulse Oximetry (%) 98 Intake Visit Reasons: 2m follow up Allergies amlodipine Allergy (Unknown, Verified 08/28/25 12:23) unknown contact metal agent Allergy (Unknown, Verified 08/28/25 12:23) Skin breakout lisinopril (LISINOPRIL) Allergy (Unknown, Verified 08/28/25 12:23) COUGH nickel (NICKEL) Allergy (Unknown, Verified 08/28/25 12:23) HIVES Medication List - Last Reconciled 08/28/25 by Tony Wilson MD atenolol 25 mg PO DAILY bupropion HCl XL mg PO ezetimibe 10 mg PO DAILY 90 days fenofibrate 160 mg PO DAILY 90 days fluoxetine mg PO ibuprofen 800 mg PO Q12H PRN irbesartan-hydrochlorothiazide 300-12.5 mg 1 tab PO DAILY 90 days levothyroxine 75 mcg PO DAILY 90 days metformin 500 mg PO ONCE 90 days semaglutide 0.5 mg (0.736 mL) subcut QWEEK 30 days Tobacco use date assessed: 06/26/25 Dental Screening Dental Screen Date: 02/20/25 HPI 2m follow up HPI Details History of Present Illness The patient is a 59-year-old female presenting for a follow-up for weight management with semaglutide and chronic condition management. Obesity: - The patient is taking semaglutide 0.5 mg for weight loss and has achieved a weight reduction from 226 lbs on June 26 to 219 lbs at today's visit. - She reports her weight was down to 215 lbs but she gained 3 lbs in the last three days after consuming a meal high in fat and salt. - She feels the medication's efficacy wa majo by , just before her next scheduled dose. - She has been mindful of her food intak e, avoiding second portions, and eating dinner early. Prediabetes: - The patient's A1c was 6.8 previously a nd is now 6.3. - The patient is on metformin 500 mg. - She does not monitor her blood sugar a t home. Chronic Kidney Disease: - The patient had elevated kidney functi on labs two visits ago, with a glomerular filtration rate of 55, where normal is above 60. - She attributes this to taking 800 mg o f ibuprofen prescribed by her knee surgeon. - She no longer takes ibuprofen regularl y, but will occasionally take 400 mg for workout-related pain. Depression: - The patient reports her depression is better, attributing the improvement to a combination of medication and exercise. - She is currently taking fluoxetine and bupropion for her depression. Medications: - Semaglutide 0.5 mg for weight loss - Hydrochlorothiazide - Levothyroxine 75 mcg - Metformin 500 mg - Fluoxetine - Fenofibrate - Bupropion - Atenolol 25 mg - Zetia - Ibuprofen 400 mg as needed for pain Social History: - Diet: The patient is mindful of her di et, avoids second helpings, and eats dinner early. - Exercise: The patient goes to the gym and works out twice a week, which she finds helps her depression. - Weight Management: The patient weighs herself daily. Diagnostic Results: - Weight: 219 lbs, decreased from 226 lb s on June 26. - Hemoglobin A1c: 6.3% (in-office finger prick), down from 6.8% previously. - Blood pressure: 130/78 mmHg. - Prior labs: Glomerular filtration rate was 55. Problem List - Obesity - Prediabetes - Depression - Hypertension - Hypothyroidism - Chronic kidney disease - Hyperlipidemia - Preventative care: Influenza vaccinati on Plan - Continue semaglutide 0.5 mg; a 2-month prescription will be sent. - Patient advised to avoid ibuprofen due to its effect on kidney function and to try non-pharmacological methods like hot showers for pain. - Patient will get a flu vaccine today i n the office. - Will order labs, including a vitamin D level and urinalysis, to be completed two days before her next appointment. - A1c will be deferred from the upcoming lab order as it should be checked every 3 months. - Follow up in 2 months to review progre ss and lab results. Review of Systems - General: No fever no chills - Neurological: No headaches no dizziness - Ear nose throat: No sore throat no hearing difficulty no ear pain - Cardiovascular: No syncope, no chest pain, no palpitations - Gastrointestinal: No nausea vomiting or diarrhea - Endocrine: No polyuria polydipsia no heat intolerance - Genitourinary: No dysuria , no blood in urine Physical Exam General: No acute distress HEENT: No acute findings Neck: Supple Respiratory system: Able to talk in full sentences, no audible wheeze Cardiovascular: S1-S2 regular in rate and rhythm, blood pressure 130/78, acceptable Gastrointestinal: No pain Extremities: No new findings 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 Son No problems noted. Brother Colon cancer Other Adopted Social History Housing: House Alcohol intake: never Patient Tobacco Use Status: Former Tobacco user Tobacco use type: Cigarette Years Smoked: since age 11 e-Cigarette/Vaping Use: Never Used service: No Current occupational status: employed and disabled Current occupation: rt handed Cognitive needs: No Hearing needs: No Vision needs: Yes Female Reproductive History Menstrual Age of Menarche: 11 Questionnaire Thrive Questionnaire Date Thrive assessed: 11/25/24 I am a: Patient What is your living situation today?: I choose not to answer this question Within the past 12 months, did the food you bought not last and you didn't have the money to get more?: I choose not to answer this question Within the past 12 months, did you worry whether your food would run out before you got money to buy more?: I choose not to answer this question Do you have trouble paying for medicines?: No Do you have trouble getting transportation to medical appointments?: No Do you have trouble paying your heating and electricity bill?: I choose not to answer this question Do you have trouble taking care of your child, family member or friend?: I choose not to answer this question THRIVE Score: 0 [place]-7 AMB Questionnaire [place]-7 Date [place] - 7 assessed: 11/25/24 Source: Developed by Drs. Ezra Valdez, Miley Jovanny Cox and colleagues, with an educational keny from [employer]. Physical exam (Primary Care) Vital Signs: Last Vital Signs Pulse 92 08/28/25 12:22 BP 130/78 08/28/25 12:22 Pulse Ox 98 08/28/25 12:22 BMI result Body Mass Index 36.4 Tobacco/Smoking Status: Tobacco use Status Tobacco use date assessed 06/26/25 08/28/25 12:22 Patient Tobacco Use Status Former Tobacco user 08/28/25 12:22 Tobacco use type Cigarette 08/28/25 12:22 e-Cigarette/Vaping Use Never Used 08/28/25 12:22 Thrive Assessment: Date of Thrive Assessment Date Thrive assessed 11/25/24 08/28/25 12:22 Office Procedures Flu Questionnaire Does the patient have a severe egg allergy?: No Does the patient have severe life threatening allergies?: No Does the patient have a fever or illness today?: No Has the patient ever had Guillain-Colton Syndrome?: No Has the patient ever had any past reaction to a flu shot?: No Results AMB Hemoglobin A1c AMB Hemoglobin A1c 6.3 % Last Edit by Crescencio Law CMA on 08/28/25 12: 43 Immunizations Fluarix [id number] (PF) 45 mcg (15 mcg x 3)/0.5 mL IM syringe Performing Provider: Tony Wilson MD Performing Location: [facility] Administered by: Yary Maritnez CMA on 08/28/25 12:50 Dose Route Admin Location Dispensed Lot Number Expiration Date [facility] [employer] Of [employer] 0.5 mL IM Right Deltoid 0.5 mL [id number] 04/13/26 [id number] [employer] VIS Given Date VIS Provided VIS Publication Date 08/28/25 Single Vaccine 24 Eligibility Eligibility Date Funding Source Not [facility] Eligible 08/28/25 Private Results Reviewed Results Reviewed: Laboratory Last Values Hgb A1c (Clinic) 6.3 % (4.0-6.0) H 08/28/25 12:42 Coding Level of Care Code Est Pt Level 4 (90510) Complex EM visit Add On G2211 Diagnoses Diabetes 1.5, managed as type 2 E13.9 Hypertension, essential I10 Other specified hypothyroidism E03.8 Recurrent major depressive disorder, in partial remission F33.41 Active/Remission status: in partial remission Anxiety, generalized F41.1 Vitamin D deficiency E55.9 Microalbuminuria R80.9 Class 2 severe obesity due to excess calories with serious comorbidity and body mass index (BMI) of 37.0 to 37.9 in adult E66.01; Z68.37 Body mass index: BMI 37.0-37.9 Obesity classification: adult class 2 (BMI 35 - 39.9) Serious obesity comorbidity presence: with serious comorbidity Assessment & Plan Assessment & Plan (1) Diabetes 1.5, managed as type 2: Code(s): E13.9 - Other specified diabetes mellitus without complications Category: Medical (2) Hypertension, essential: Code(s): I10 - Essential (primary) hypertension Category: Medical (3) Other specified hypothyroidism: Code(s): E03.8 - Other specified hypothyroidism Category: Medical (4) Depression, major, recurrent: Code(s): F33.9 - Major depressive disorder, recurrent, unspecified Category: Medical Qualifiers: Active/Remission status: in partial remission Qualified Code(s): F33.41 - Major depressive disorder, recurrent, in partial remission (5) Anxiety, generalized: Code(s): F41.1 - Generalized anxiety disorder Category: Medical (6) Vitamin D deficiency: Code(s): E55.9 - Vitamin D deficiency, unspecified Category: Medical (7) Microalbuminuria: Code(s): R80.9 - Proteinuria, unspecified Category: Medical (8) Obesity due to excess calories: Code(s): E66.09 - Other obesity due to excess calories Category: Medical Qualifiers: Body mass index: BMI 37.0-37.9 Obesity classification: adult class 2 (BMI 35 - 39.9) Serious obesity comorbidity presence: with serious comorbidity Qualified Code(s): E66.01 - Morbid (severe) obesity due to excess calories; Z68.37 - Body mass index [BMI] 37.0-37.9, adult Plan Obesity: - The patient is taking semaglutide 0.5 mg for weight loss and has achieved a weight reduction from 226 lbs on June 26 to 219 lbs at today's visit. - She reports her weight was down to 215 lbs but she gained 3 lbs in the last three days after consuming a meal high in fat and salt. - She feels the medication's efficacy wanes by , just before her next scheduled dose. - She has been mindful of her food intake, avoiding second portions, and eating dinner early. Prediabetes: - The patient's A1c was 6.8 previously and is now 6.3. - The patient is on metformin 500 mg. - She does not monitor her blood sugar at home. Chronic Kidney Disease: - The patient had elevated kidney function labs two visits ago, with a glomerular filtration rate of 55, where normal is above 60. - She attributes this to taking 800 mg of ibuprofen prescribed by her knee surgeon. - She no longer takes ibuprofen regularly, but will occasionally take 400 mg for workout-related pain. Depression: - The patient reports her depression is better, attributing the improvement to a combination of medication and exercise. - She is currently taking fluoxetine and bupropion for her depression. Medications: - Semaglutide 0.5 mg for weight loss - Hydrochlorothiazide - Levothyroxine 75 mcg - Metformin 500 mg - Fluoxetine - Fenofibrate - Bupropion - Atenolol 25 mg - Zetia - Ibuprofen 400 mg as needed for pain Social History: - Diet: The patient is mindful of her diet, avoids second helpings, and eats dinner early. - Exercise: The patient goes to the gym and works out twice a week, which she finds helps her depression. - Weight Management: The patient weighs herself daily. Diagnostic Results: - Weight: 219 lbs, decreased from 226 lbs on June 26. - Hemoglobin A1c: 6.3% (in-office finger prick), down from 6.8% previously. - Blood pressure: 130/78 mmHg. - Prior labs: Glomerular filtration rate was 55. Problem List - Obesity - Prediabetes - Depression - Hypertension - Hypothyroidism - Chronic kidney disease - Hyperlipidemia - Preventative care: Influenza vaccination Plan - Continue semaglutide 0.5 mg; a 2-month prescription will be sent. - Patient advised to avoid ibuprofen due to its effect on kidney function and to try non-pharmacological methods like hot showers for pain. - Patient will get a flu vaccine today in the office. - Will order labs, including a vitamin D level and urinalysis, to be completed two days before her next appointment. - A1c will be deferred from the upcoming lab order as it should be checked every 3 months. - Follow up in 2 months to review progress and lab results. Orders: Orders Vitamin D 25-OH (D2 and D3) Today E03.8 - Other specified hypothyroidism, E13.9 - Other specified diabetes mellitus without complications, E55.9 - Vitamin D deficiency, unspecified, E66.01 - Morbid (severe) obesity due to excess calories, F33.41 - Major depressive disorder, recurrent, in partial remission, F41.1 - Generalized anxiety disorder, I10 - Essential (primary) hypertension, R80.9 - Proteinuria, unspecified, Z68.37 - Body mass index [BMI] 37.0-37.9, adult Vitamin B12 Today E03.8 - Other specified hypothyroidism, E13.9 - Other specified diabetes mellitus without complications, E55.9 - Vitamin D deficiency, unspecified, E66.01 - Morbid (severe) obesity due to excess calories, F33.41 - Major depressive disorder, recurrent, in partial remission, F41.1 - Generalized anxiety disorder, I10 - Essential (primary) hypertension, R80.9 - Proteinuria, unspecified, Z68.37 - Body mass index [BMI] 37.0-37.9, adult Microalbumin, Random (w Creat) Today R80.9 - Proteinuria, unspecified Complete Blood Count Auto Diff Today E03.8 - Other specified hypothyroidism, E13.9 - Other specified diabetes mellitus without complications, E55.9 - Vitamin D deficiency, unspecified, E66.01 - Morbid (severe) obesity due to excess calories, F33.41 - Major depressive disorder, recurrent, in partial remission, F41.1 - Generalized anxiety disorder, I10 - Essential (primary) hypertension, R80.9 - Proteinuria, unspecified, Z68.37 - Body mass index [BMI] 37.0-37.9, adult Comprehensive Gardner. Panel Fast Today E03.8 - Other specified hypothyroidism, E13.9 - Other specified diabetes mellitus without complications, E55.9 - Vitamin D deficiency, unspecified, E66.01 - Morbid (severe) obesity due to excess calories, F33.41 - Major depressive disorder, recurrent, in partial remission, F41.1 - Generalized anxiety disorder, I10 - Essential (primary) hypertension, R80.9 - Proteinuria, unspecified, Z68.37 - Body mass index [BMI] 37.0-37.9, adult Lipid Panel Today E03.8 - Other specified hypothyroidism, E13.9 - Other specified diabetes mellitus without complications, E55.9 - Vitamin D deficiency, unspecified, E66.01 - Morbid (severe) obesity due to excess calories, F33.41 - Major depressive disorder, recurrent, in partial remission, F41.1 - Generalized anxiety disorder, I10 - Essential (primary) hypertension, R80.9 - Proteinuria, unspecified, Z68.37 - Body mass index [BMI] 37.0-37.9, adult TSH reflex Free T4 Today E03.8 - Other specified hypothyroidism, E13.9 - Other specified diabetes mellitus without complications, E55.9 - Vitamin D deficiency, unspecified, E66.01 - Morbid (severe) obesity due to excess calories, F33.41 - Major depressive disorder, recurrent, in partial remission, F41.1 - Generalized anxiety disorder, I10 - Essential (primary) hypertension, R80.9 - Proteinuria, unspecified, Z68.37 - Body mass index [BMI] 37.0-37.9, adult AMB Hemoglobin A1c Today Z13.9 - Encounter for screening, unspecified Influenza [id number] Immunization Today Z23 - Encounter for immunization Medications: Refilled semaglutide for 4 weeks 0.5 mg (0.736 mL) subcut QWEEK 3.68 mL 1RF 30 days
== END 2025-08-28 13:14 | disposition home or self-care (01) ==
LOC: HO.HMCC 12:16
PROVIDERS: PCP Internal Medicine; Visit Provider Internal Medicine
DX: E13.9 Other specified diabetes mellitus without complications (principal); E66.01 Morbid (severe) obesity due to excess calories; I10 Essential (primary) hypertension; Z68.37 Body mass index [BMI] 37.0-37.9, adult; E03.8 Other specified hypothyroidism; F33.41 Major depressive disorder, recurrent, in partial remission; F41.1 Generalized anxiety disorder; E55.9 Vitamin D deficiency, unspecified; R80.9 Proteinuria, unspecified; Z23 Encounter for immunization

== ENCOUNTER → 2025-08-28 12:16 | Outpatient (BNVA) | payer MEDICARE, MEDICAID, SELFPAY | PROVIDERS: PCP Internal Medicine; Visit Provider Internal Medicine | DX: E13.22 Other specified diabetes mellitus with diabetic chronic kidney disease (principal); I12.9 Hypertensive chronic kidney disease with stage 1 through stage 4 chronic kidney disease, or unspecified chronic kidney disease; N18.9 Chronic kidney disease, unspecified; E03.8 Other specified hypothyroidism; F33.41 Major depressive disorder, recurrent, in partial remission; F41.1 Generalized anxiety disorder; E55.9 Vitamin D deficiency, unspecified; R80.9 Proteinuria, unspecified; E66.01 Morbid (severe) obesity due to excess calories; Z23 Encounter for immunization; Z68.37 Body mass index [BMI] 37.0-37.9, adult | CPT/HCPCS: 83036; 90471; 90656; 99212 ==